=== PATIENT | female | born 1930 | race Caucasian/White ===

== ENCOUNTER 2017-02-17 15:35 | Inpatient (IN) ==
[2017-02-17] MEDS ORDERED: ONDANSETRON 4 MG/2 ML INJECTION IVP PRN (19:04)
[2017-02-17] MEDS ORDERED: POLYETHYL GLYCOL 3350 17gm PACKET PO PRN (19:04)
[2017-02-17] MEDS ORDERED: GLUCOSE ORAL GEL 40% 37.5gm PO PRN (19:11)
[2017-02-17] MEDS ORDERED: IBUPROFEN 600 MG TABLET PO SCH ×2 (19:15→19:45)
[2017-02-17] MEDS ORDERED: HYDRALAZINE 20 MG/ML INJECTION IVP SCH (20:00)
[2017-02-17] MEDS ORDERED: SIMVASTATIN 80 MG PO SCH (22:00)
[2017-02-17] MEDS ORDERED: AMLODIPINE 10 MG PO SCH (22:00)
[2017-02-17] MEDS ORDERED: IBUPROFEN 600 MG TABLET PO PRN (22:44)
[2017-02-17] MEDS ORDERED: HYDRALAZINE 20 MG/ML INJECTION IVP PRN (22:47)
[2017-02-17] MEDS: DOCUSATE SODIUM 100 MG CAPSULE PO SCH (23:47)
[2017-02-17] MEDS: SIMVASTATIN 80 MG TABLET PO SCH (23:47)
[2017-02-17] MEDS: AMLODIPINE 10 MG TABLET PO SCH (23:47)
[2017-02-18] MEDS: ENOXAPARIN 40 MG/0.4 ML INJECTION SQ SCH (08:27)
[2017-02-18] MEDS: DIGOXIN 125 MCG TABLET PO SCH (08:28)
[2017-02-18] MEDS: LUTEIN 20 MG CAPSULE PO SCH (08:28)
[2017-02-18] MEDS: ATENOLOL 50 MG TABLET PO SCH (08:29)
[2017-02-18] MEDS: VITAMIN B COMPLEX + C TABLET PO SCH (08:29)
[2017-02-18] MEDS: METFORMIN 1,000 MG TABLET PO SCH (08:29)
[2017-02-18] MEDS: DOCUSATE SODIUM 100 MG CAPSULE PO SCH ×2 (08:30→21:14)
[2017-02-18] MEDS: CITALOPRAM 10 MG TABLET PO SCH (08:30)
[2017-02-18] MEDS: ASPIRIN 325 MG TABLET PO SCH (08:35)
[2017-02-18] MEDS: RAMIPRIL 5 MG CAPSULE PO SCH (08:35)
[2017-02-18] MEDS ORDERED: AMLODIPINE 10 MG TABLET PO SCH (09:00)
--- NOTE | 2017-02-18 09:15 | Consult Note ---
<Brittany Martinez - Last Filed: 02/18/17 09:30> Consult Information - Data of Consult Patient: new to practice Requesting Physician: Maximo Johnston MD Primary Care Provider: Victor Hugo Flores MD Family Provider: Victor Hugo Flores MD - Consult Narrative Reason for consult: Medical Management while in IRU History of present illness: This is an 87 y/o female who is from [facility]. On the morning of 02/11/17 her had noted that she was having marked left sided weakness and called EMS. She was taken emergently to [facility] from [place] for CVA. Was not a Tpa candidate due to being outside the window for administration. Does take Warfarin but INR that morning was 1.3. Was found to have a clot in the right ICA that extended to the R MCA. Underwent clot retrieval but did not have improvement of her symptoms post retrieval. Unable to have MRI due to pacemaker Continues to have left sided neglect, hemiparesis, mild dysarthria, and facial droop. Was discharged from [facility] 02/17/17 to IR[place] [facility] [place] She does have a primary care provider in [place], Dr Flores. Is to follow up with him 2 weeks after d/c from rehab. Has a history of atrial fibrillation and has been on Coumadin in the past for this. Type 2 diabetes which she has been diet controlled only. History of hypertension and is continued her home medications for management. She did have a speech consult done prior to dismissal from [facility] and is to be on thickened liquids. She lives in her own home with her and hopes to regain enough function to return. Review of Systems - Constitutional Constitutional: Present: weakness. Absent: chills, fever(s), lethargy, malaise - EENMT Eyes: Absent: blurry vision Ears: Absent: ear pain Mouth/Throat: Present: changes in swallowing. Absent: sore throat, scratchy throat, drooling - Cardiovascular Cardiovascular: Absent: chest pain, palpitations, edema, heart murmur Rhythm: Present: regular rhythm - Respiratory Respiratory: Absent: cough, dyspnea, wheezing - Gastrointestinal Gastrointestinal: Absent: abdominal pain, constipation, diarrhea, nausea, vomiting - Musculoskeletal Musculoskeletal: Present: abnormal gait (2 person assist with activity), muscle weakness (left sided weakness). Absent: deformity, neck pain, stiffness - Integumentary/Breasts Integumentary: Absent: erythema, lesions, rash - Neurological Neurological: Present: abnormal gait, focal weakness (left sided). Absent: abnormal speech, confusion, dizziness, numbness, weakness [facility] Patient Stated Medical History Cerebrovascular Accident Yes: 02/11/2017 Cataracts Yes Glaucoma Yes Hearing Loss Yes Macular Degeneration Yes Cardiac Arrhythmia Yes: Hx of atrial fib Hypertension Yes Diabetes Mellitus Type 2 Yes: Diet controlled Other Yes: incontinence Other Yes: vein stripping Depression Yes hyperlipidemia Surgical History: Pacemaker insertion. cholecystectomy. cataracts. Bilateral knee replacements. tonsillectomy. hernia repair. varicose vein stripping Family History: Non contributory Smoking status: Never smoker Substance use type: does not use Alcohol intake frequency: does not drink Current residence: Apartment/Private Home Medications Home Medications Medication Instructions Recorded Confirmed Type Atenolol 50 mg PO DAILY #0 03/03/13 02/17/17 History Digoxin 125 mcg PO DAILY #0 03/03/13 02/17/17 History Acetaminophen 325 - 650 mg PO Q4HR PRN 02/17/17 02/17/17 History Amlodipine 10 mg PO HS 02/17/17 02/17/17 History Aspirin 325 mg PO DAILY 02/17/17 02/17/17 History Citalopram [Celexa] 10 mg PO DAILY 02/17/17 02/17/17 History Docusate Sodium [Colace] 1 cap PO BID 02/17/17 02/17/17 History Enoxaparin [Lovenox] 40 mg SQ DAILY 02/17/17 02/17/17 History Hydralazine Inj [Apresoline] 0.5 ml IVP Q4HR PRN 02/17/17 02/17/17 History Ibuprofen [Motrin] 600 mg PO Q6H PRN 02/17/17 02/17/17 History Lutein 20 mg PO DAILY 02/17/17 02/17/17 History Melatonin 5 mg PO HS PRN 02/17/17 02/17/17 History [place]-3/Dha/Epa/Fish Oil [[place]-3 1,000 mg PO DAILY 02/17/17 02/17/17 History Fish Oil 1,000 mg Sfgl] Ondansetron Inj [Zofran] 4 mg IVP Q6HR PRN 02/17/17 02/17/17 History Polyethylene Glycol 3350 [Miralax] 17 gm PO DAILY PRN 02/17/17 02/17/17 History Ramipril 10 mg PO DAILY 02/17/17 02/17/17 History Simvastatin 80 mg PO HS 02/17/17 02/17/17 History Vitamin B Complex Vit C No.4 150 mg PO DAILY 02/17/17 02/17/17 History [Super B Complex] Allergies Allergy/AdvReac Type Severity Reaction Status Date / Time lomefloxacin Allergy Mild RASH Verified 02/17/17 17:19 morphine Allergy Mild RASH Verified 02/17/17 17:19 Penicillins Allergy Mild RASH Verified 02/17/17 17:19 pentazocine Allergy Mild RASH Verified 02/17/17 17:19 propacetamol Allergy Mild RASH Verified 02/17/17 17:28 Tetanus Vaccines and Toxoid Allergy Unknown Verified 02/17/17 17:19 metformin AdvReac Mild DIARRHEA Verified 02/17/17 17:19 Exam Vital Signs: Temp Pulse Resp BP Pulse Ox 98.5 F 70 16 136/70 93 02/18/17 08:26 02/18/17 08:28 02/18/17 08:26 02/18/17 08:26 02/18/17 08:26 Height: 1.68 m Weight: 73 kg Body Mass Index: 25.9 - Constitutional Present: no acute distress, well nourished, well developed, somnolent - Routine HEENT Exam Head: Present: normocephalic Eye: Present: EOMI, PERRL ENT: Present: mucous membranes moist, oropharynx clear, external ear normal - Routine Neck Exam Present: supple, full ROM, trachea midline. Absent: lymphadenopathy, tenderness - Detailed Respiratory Exam Present: clear to auscultation - Routine Cardiovascular Exam Present: RRR, S1, S2 - Routine Abdominal Exam Present: soft, normoactive bowel sounds, non distended. Absent: tenderness - Routine Extremities Exam Present: no edema, pulses intact, normal capillary refill. Absent: full ROM ( left sided weakness) - Routine Skin Exam Present: intact, dry. Absent: lesions, rash - Routine Neurological Exam Present: alert, oriented X3, motor deficit (left sided weakness ), hemineglect, normal speech. Absent: altered mental status - Routine Psychiatric Exam Present: normal affect (However does appear a little flat during examination. Does speak when asked a question but otherwise does not interact) Results - Labs CBC & Chem 7: 02/18/17 04:43 02/18/17 04:43 Labs: Short CBC 02/18/17 Range/Units 04:43 WBC 12.3 H (4.5-11.0) T/MM3 Hgb 13.1 (12-16) GM/DL Hct 40.6 (36-46) % Plt Count 257 (130-400) T/MM3 BMP 02/18/17 04:43 Sodium 144 Potassium 3.8 Chloride 104 Carbon Dioxide 29 BUN 22.0 H Creatinine 0.7 Glucose 138 H Calcium 9.0 Assessment and Plan (1) Stroke Current visit: Yes Status: Acute (2) Diabetes mellitus Current visit: Yes Status: Chronic (3) Atrial fibrillation Current visit: Yes Status: Chronic (4) Hypertension Current visit: Yes Status: Chronic DVT Prophylaxis: Lovenox Resuscitation Status: Full Code Assessment and Plan: 02/18/17: CVA: PT/OT/ST as per recommendations to help regain independence. She is on Lovenox 40mg SQ daily for DVT prophylaxis as well as Simvastatin 80mg daily, 324mg ASA daily. HTN: Continue home medications of Norvasc, Atenolol, and Ramipril. Monitor b/p to maintain below 160. B/P since admission have been in good range. Creatinine 0.7 on labs from 02/17/17. DM:She was diet controlled at home. Is on thickened liquids here as well as pureed diet. Will add carb control to this to help with blood sugars. Does have sliding scale insulin ordered as well. Try to keep BGM below 160. Will check BGM fasting and 2H PC. She does have Metformin ordered and has a listed allergy but reaction is diarrhea so will monitor for this. Atrial fibrillation: Continue with digoxin at home dose. Will continue Miralax and Colace for bowel motivation. Monitor labs every few days and as needed. Hospital Course Summary Disclaimer: The visit summary below is not to be considered part of the above Progress Note. Sepsis Assessment - Evaluation Sepsis screening result: No Definite Risk - Focused Exam Vital Signs Temp Pulse Resp BP Pulse Ox 02/18/17 08:28 70 02/18/17 08:26 98.5 F 70 16 136/70 93 02/17/17 23:00 98.9 F 70 24 140/78 H 93 Capillary refill: < 2-3 Seconds <Heather Harmon Sunshine - Last Filed: 02/18/17 17:30> Consult Information - Data of Consult Requesting Physician: Maximo Johnston MD Primary Care Provider: Victor Hugo Flores MD Family Provider: Victor Hugo Flores MD [facility] Patient Stated Medical History Cerebrovascular Accident Yes: 02/11/2017 Cataracts Yes Glaucoma Yes Hearing Loss Yes Macular Degeneration Yes Cardiac Arrhythmia Yes: Hx of atrial fib Hypertension Yes Diabetes Mellitus Type 2 Yes: Diet controlled Hx Incontinence Yes Other Yes: incontinence Other Yes: vein stripping Depression Yes Exam Vital Signs: Temp Pulse Resp BP Pulse Ox 98.4 F 68 16 145/77 H 97 02/18/17 15:54 02/18/17 15:54 02/18/17 15:54 02/18/17 15:54 02/18/17 15:54 Height: 1.68 m Weight: 72.575 kg Results - Labs CBC & Chem 7: 02/18/17 04:43 02/18/17 04:43 Labs: Short CBC 02/18/17 Range/Units 04:43 WBC 12.3 H (4.5-11.0) T/MM3 Hgb 13.1 (12-16) GM/DL Hct 40.6 (36-46) % Plt Count 257 (130-400) T/MM3 BMP 02/18/17 04:43 Sodium 144 Potassium 3.8 Chloride 104 Carbon Dioxide 29 BUN 22.0 H Creatinine 0.7 Glucose 138 H Calcium 9.0 Assessment and Plan (1) Stroke Current visit: Yes Status: Acute ischemic, s/p clot retrieval; small hemorrhagic conversion right MCA distribution 02/18/17 17:02 02/18/17 17:29 (2) Left hemiparesis Current visit: Yes Status: Acute due to CVA, +left sided neglect 02/18/17 17:01 (3) Dysphagia as late effect of stroke Current visit: Yes Status: Acute (4) Diabetes mellitus Current visit: Yes Status: Chronic (5) Atrial fibrillation Current visit: Yes Status: Chronic (6) Hypertension Current visit: Yes Status: Chronic (7) Myopathy Current visit: Yes Status: Acute (8) Depression Current visit: Yes Status: Chronic (9) Head ache Current visit: Yes Status: Acute Assessment and Plan: I have independently evaluated and examined this patient. I reviewed the chart, the patient's history, and the ROOFING LAYER's documented findings as above. We discussed and formulated the assessment and plan as above with additions as below: Mrs. Black transferred from [facility] after ischemic right MCA stroke one week ago. She underwent clot retrieval at [facility] with minimal improvement. Her reports that follow-up CT demonstrated some hemorrhagic transformation within the stroke bed and that they've been advised to hold warfarin until late February. The patient offered minimal history but indicated she's had mild right frontal headache since the clot retrieval. reports that she's had minor movement in her left foot but no use of her left arm over the past week. Her locomotive crane engineer is Dr. Herrera at [facility]. Of note patient's mother had history CVA. Examination is notable for intact extraocular movements, conjugate gaze, left nasolabial fold flattening/droop. Right retail warehouse supervisor is strong and she is able to raise her right arm to at least the shoulder level and hold it up against gentle resistance. There is no left retail warehouse supervisor in the left upper extremity is flaccid. Power in the right lower extremity is grossly normal distally and she can hold the right leg up against gentle resistance proximally. There is no proximal movement of the left leg, no left plantar flexion against gentle resistance, but she can wiggle the left toes slightly. Patient reports recognition of light touch on the right and the left are symmetric in the upper and lower extremities. Cardiac rhythm is regular. [facility] records reviewed-left visual cut was reported at [facility] on admission (02/11). 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 Small parenchymal hemorrhages were reported in the right basal basilar region up to 1 cm on 02/12, cerebral edema described but did not require treatment with hypertonic saline. Echo with bubble study revealed ejection fraction 60% and no evidence of LA/LV clot. Bubble study negative for shunt. Moderate TR with PAP 45. She required tube feedings via [place] through 02/16 when she was converted to an oral diet with thickened liquids. Discussed with (who provides much of history)/nursing. Continue aggressive rehabilitation. Resume warfarin in 4 weeks (03/11/17) as directed due to history underlying A. fib. If ongoing headache will require repeat imaging with noncontrast CT to evaluate hemorrhagic transformation/edema. Hospital Course Summary Disclaimer: The visit summary below is not to be considered part of the above Progress Note. Sepsis Assessment - Focused Exam Vital Signs Temp Pulse Resp BP Pulse Ox 02/18/17 15:54 98.4 F 68 16 145/77 H 97 02/18/17 08:28 70 02/18/17 08:26 98.5 F 70 16 136/70 93
[2017-02-18] MEDS ORDERED: FALL RISK - PHARMACY CONSULT MC PRN (09:46)
[2017-02-18] MEDS: INSULIN ASPART 100unit/ml INJECTION SQ PRN ×2 (12:16→21:18)
--- NOTE | 2017-02-18 15:54 | IRU History & Physical Report ---
HPI IRU Date: Chief complaint: cva HPI: 87 yo female with CVA onset 02/11/17. Dx with right sided cva which extended from ICA to MCA. She ws trannsferred to [facility] and had clot removal procedure without improvemeent in symptoms. She continues with weakness left side and difficulty swallowing. She was taking coumadin for Afib, but inr was subtherapeutic on morning of CVA. Being admitted to IRU for PT, OT and Speech therapy. Review of Systems - Constitutional Constitutional: Present: weakness. Absent: chills, fever(s), lethargy, malaise - EENMT Eyes: Absent: blurry vision Ears: Absent: ear pain Mouth/Throat: Present: changes in swallowing. Absent: sore throat, scratchy throat, drooling - Cardiovascular Cardiovascular: Absent: chest pain, palpitations, edema, heart murmur Rhythm: Present: regular rhythm - Respiratory Respiratory: Absent: cough, dyspnea, wheezing - Gastrointestinal Gastrointestinal: Absent: abdominal pain, constipation, diarrhea, nausea, vomiting - Musculoskeletal Musculoskeletal: Present: abnormal gait (2 person assist with activity), muscle weakness (left sided weakness). Absent: deformity, neck pain, stiffness - Integumentary/Breasts Integumentary: Absent: erythema, lesions, rash - Neurological Neurological: Present: abnormal gait, focal weakness (left sided). Absent: abnormal speech, confusion, dizziness, numbness, weakness [facility] Patient Stated Medical History Cerebrovascular Accident Yes: 02/11/2017 Cataracts Yes Glaucoma Yes Hearing Loss Yes Macular Degeneration Yes Cardiac Arrhythmia Yes: Hx of atrial fib Hypertension Yes Diabetes Mellitus Type 2 Yes: Diet controlled Other Yes: incontinence Other Yes: vein stripping Depression Yes Surgical History: Pacemaker insertion. cholecystectomy. cataracts. Bilateral knee replacements. tonsillectomy. hernia repair. varicose vein stripping Smoking status: Never smoker Substance use type: does not use Alcohol intake frequency: does not drink Current residence: Apartment/Private Home Medications Home Medications Medication Instructions Recorded Confirmed Type Atenolol 50 mg PO DAILY #0 03/03/13 02/17/17 History Digoxin 125 mcg PO DAILY #0 03/03/13 02/17/17 History Acetaminophen 325 - 650 mg PO Q4HR PRN 02/17/17 02/17/17 History Amlodipine 10 mg PO HS 02/17/17 02/17/17 History Aspirin 325 mg PO DAILY 02/17/17 02/17/17 History Citalopram [Celexa] 10 mg PO DAILY 02/17/17 02/17/17 History Docusate Sodium [Colace] 1 cap PO BID 02/17/17 02/17/17 History Enoxaparin [Lovenox] 40 mg SQ DAILY 02/17/17 02/17/17 History Hydralazine Inj [Apresoline] 0.5 ml IVP Q4HR PRN 02/17/17 02/17/17 History Ibuprofen [Motrin] 600 mg PO Q6H PRN 02/17/17 02/17/17 History Lutein 20 mg PO DAILY 02/17/17 02/17/17 History Melatonin 5 mg PO HS PRN 02/17/17 02/17/17 History [place]-3/Dha/Epa/Fish Oil [[place]-3 1,000 mg PO DAILY 02/17/17 02/17/17 History Fish Oil 1,000 mg Sfgl] Ondansetron Inj [Zofran] 4 mg IVP Q6HR PRN 02/17/17 02/17/17 History Polyethylene Glycol 3350 [Miralax] 17 gm PO DAILY PRN 02/17/17 02/17/17 History Ramipril 10 mg PO DAILY 02/17/17 02/17/17 History Simvastatin 80 mg PO HS 02/17/17 02/17/17 History Vitamin B Complex Vit C No.4 150 mg PO DAILY 02/17/17 02/17/17 History [Super B Complex] Allergies Allergy/AdvReac Type Severity Reaction Status Date / Time lomefloxacin Allergy Mild RASH Verified 02/17/17 17:19 morphine Allergy Mild RASH Verified 02/17/17 17:19 Penicillins Allergy Mild RASH Verified 02/17/17 17:19 pentazocine Allergy Mild RASH Verified 02/17/17 17:19 propacetamol Allergy Mild RASH Verified 02/17/17 17:28 Tetanus Vaccines and Toxoid Allergy Unknown Verified 02/17/17 17:19 metformin AdvReac Mild DIARRHEA Verified 02/17/17 17:19 Results IRU - Labs Labs: Laboratory Results - last 24 hr 02/17/17 02/18/17 02/18/17 22:07 04:43 04:43 WBC 12.3 H RBC 4.36 Hgb 13.1 Hct 40.6 MCV 93.1 MCH 30.0 MCHC 32.3 RDW Std Deviation 49.1 Plt Count 257 MPV 11.1 Immature Gran % (Auto) 0.2 Neut % (Auto) 78.6 H Lymph % (Auto) 12.2 L Burnett % (Auto) 7.2 Eos % (Auto) 1.5 Baso % (Auto) 0.3 Neut # 9.7 H Lymph # 1.5 Burnett # 0.9 H Eos # 0.2 Baso # 0.0 Abs Immat Gran (auto) 0.03 Turbidity 20 Sodium 144 Potassium 3.8 Chloride 104 Carbon Dioxide 29 Anion Gap 11 BUN 22.0 H Creatinine 0.7 GFR Calculation 80 BUN/Creatinine Ratio 31 H Glucose 138 H Glucometer 122 Calculated Osmolality 282 H Calcium 9.0 Icterus Index 2 Specimen Hemolysis 15 02/18/17 02/18/17 05:54 11:48 WBC RBC Hgb Hct MCV MCH MCHC RDW Std Deviation Plt Count MPV Immature Gran % (Auto) Neut % (Auto) Lymph % (Auto) Burnett % (Auto) Eos % (Auto) Baso % (Auto) Neut # Lymph # Burnett # Eos # Baso # Abs Immat Gran (auto) Turbidity Sodium Potassium Chloride Carbon Dioxide Anion Gap BUN Creatinine GFR Calculation BUN/Creatinine Ratio Glucose Glucometer 145 150 Calculated Osmolality Calcium Icterus Index Specimen Hemolysis Exam Vital Signs: Temp Pulse Resp BP Pulse Ox 98.5 F 70 16 136/70 93 02/18/17 08:26 02/18/17 08:28 02/18/17 08:26 02/18/17 08:26 02/18/17 08:26 Height: 1.68 m Weight: 72.575 kg Body Mass Index: 25.8 - Constitutional Present: no acute distress, well nourished, well developed, somnolent - Routine HEENT Exam Head: Present: normocephalic Eye: Present: EOMI, PERRL - Routine Neck Exam Present: full ROM. Absent: tenderness - Routine Respiratory Exam Present: CTA bilaterally. Absent: wheezes, crackles - Routine Cardiovascular Exam Present: no murmur, irregularly irregular - Routine Abdominal Exam Present: soft, non distended, non tender. Absent: organomegaly, mass - Routine Extremities Exam Absent: cyanosis, clubbing, edema - Routine Skin Exam Present: intact, dry, warm - Routine Neurological Exam Present: alert, oriented X3, motor deficit Sepsis Assessment - Evaluation Sepsis screening result: No Definite Risk - Focused Exam Vital Signs Temp Pulse Resp BP Pulse Ox 02/18/17 08:28 70 02/18/17 08:26 98.5 F 70 16 136/70 93 Cardiovascular exam: Present: RRR, S1, S2 Capillary refill: < 2-3 Seconds IRU A/P (1) Stroke Current visit: Yes Status: Acute Left sided weakness. PT and OT consulted. Speech for dysphagia. Pt will work with them for min of 3 ohurs daily per IRU protocol. Being evaluated today. (2) Diabetes mellitus Current visit: Yes Status: Chronic Medical to manage. (3) Atrial fibrillation Current visit: Yes Status: Chronic Mediccal to manage. (4) Hypertension Current visit: Yes Status: Chronic Meddical to manage. (5) Myopathy Current visit: Yes Status: Acute PT and OT to develope care plan DVT Prophylaxis: Lovenox Resuscitation Status: Full Code - Course Hospital Course: Maximo Johnston MD: - Interventions to Obtain Goals PT Treatment Plan: Balance/Proprioception, Functional Activities, Gait Training , Manual Therapy, Patient/Family Education, Sensory Integration, Therapeutic Exercise OT Treatment Plan: ADL (Basic Care), Balance Training, IADL, Pt./Family Education, Ther. Exercise for ADL, UE Functional Training
--- NOTE | 2017-02-18 16:03 | IRU 24Hr Post Admit Eval ---
24 Hr Post Admission Physical - Relevant Changes Reviewed: I have reviewed the patient's information and concur with the finding and results of the pre-admission screen. Mike review performed at time of History and Physical this am at Approx 10;30 Certification: I certify the patient for rehabilitation. CERTIFICATION PERFORMED THIS AM AT APPROX 10:30 - Patient Condition (1) Stroke Status: Acute Code(s): I63.9 - Cerebral infarction, unspecified (2) Diabetes mellitus Status: Chronic Code(s): E11.9 - Type 2 diabetes mellitus without complications (3) Atrial fibrillation Status: Chronic Code(s): I48.91 - Unspecified atrial fibrillation (4) Hypertension Status: Chronic Code(s): I10 - Essential (primary) hypertension (5) Myopathy Status: Acute Code(s): G72.9 - Myopathy, unspecified - Prior Functional Status Lives With: Spouse Residence Type: Apartment/Private Home Assitive Devices: None Prior Functional Status: Indep. at home or school - Current Functional Status Failed Alternative Therapy: Arrived from Acute Care Patient Requirements: The patient requires oversight by rehabilitation physician to manage their rehabilitation treatment plan and multidisciplinary approach to care that can only be provided in an IRF and requires a multidisciplinary approach to care, provided by professional PTs, OTs, STs, dieticians, RTs, rehabilitation nurses and is not available in lesser levels of care. Limitiations Req: Mobility Impairment, ADL Impairment Speech Therapy Minutes: 60 Physical Therapy Minutes: 60 Occupational Therapy Minutes: 60 Therapy: The patient is to receive therapy at least [address] Treatment Plan: Swallow Retraining/Exercises, Swallow Precautions, Modified Diet - Complications/Comorbidities Barriers to Discharge: Weakness, Balance, Endurance, Pain Control - Plan to Avoid Complications Plan to Avoid Complications: The patient cannot receive this care in a lesser intensive setting such as Halfway or Outpatient Therapy due to the patient requiring the following MEDICal supervision and management to prevent complictions from DM, Afib, andreperfusion injuries post cva due to size and location.
[2017-02-18] MEDS: ACETAMINOPHEN 325 MG TABLET PO PRN ×2 (16:25→21:16)
[2017-02-18] MEDS: SIMVASTATIN 80 MG TABLET PO SCH (21:15)
[2017-02-18] MEDS: AMLODIPINE 10 MG TABLET PO SCH (21:15)
[2017-02-18] MEDS ORDERED: SIMVASTATIN 80 MG TABLET PO SCH (22:00)
[2017-02-19] MEDS: METFORMIN 1,000 MG TABLET PO SCH (08:20)
[2017-02-19] MEDS: VITAMIN B COMPLEX + C TABLET PO SCH (08:20)
[2017-02-19] MEDS: ASPIRIN 325 MG TABLET PO SCH (08:20)
[2017-02-19] MEDS: LUTEIN 20 MG CAPSULE PO SCH (08:20)
[2017-02-19] MEDS: RAMIPRIL 5 MG CAPSULE PO SCH (08:21)
[2017-02-19] MEDS: ACETAMINOPHEN 325 MG TABLET PO PRN (08:22)
[2017-02-19] MEDS: DOCUSATE SODIUM 100 MG CAPSULE PO SCH ×2 (08:22→22:35)
[2017-02-19] MEDS: ATENOLOL 50 MG TABLET PO SCH (08:22)
[2017-02-19] MEDS: DIGOXIN 125 MCG TABLET PO SCH (08:23)
[2017-02-19] MEDS: CITALOPRAM 10 MG TABLET PO SCH (08:23)
[2017-02-19] MEDS: ENOXAPARIN 40 MG/0.4 ML INJECTION SQ SCH (08:24)
[2017-02-19] MEDS: INSULIN ASPART 100unit/ml INJECTION SQ PRN (14:46)
[2017-02-19] MEDS ORDERED: FERRIC CARBOXYMALTOSE 750 MG in NS 250ml 250 ML IV ONE (15:30)
[2017-02-19] MEDS: AMLODIPINE 10 MG TABLET PO SCH (22:35)
[2017-02-19] MEDS: SIMVASTATIN 80 MG TABLET PO SCH (22:35)
[2017-02-20] MEDS ORDERED: FALL RISK - PHARMACY CONSULT XX PRN (09:28)
[2017-02-20] MEDS: ENOXAPARIN 40 MG/0.4 ML INJECTION SQ SCH (09:29)
[2017-02-20] MEDS: DIGOXIN 125 MCG TABLET PO SCH (09:29)
[2017-02-20] MEDS: RAMIPRIL 5 MG CAPSULE PO SCH (09:30)
[2017-02-20] MEDS: LUTEIN 20 MG CAPSULE PO SCH (09:30)
[2017-02-20] MEDS: VITAMIN B COMPLEX + C TABLET PO SCH (09:30)
[2017-02-20] MEDS: METFORMIN 1,000 MG TABLET PO SCH (09:30)
[2017-02-20] MEDS: ATENOLOL 50 MG TABLET PO SCH (09:30)
[2017-02-20] MEDS: DOCUSATE SODIUM 100 MG CAPSULE PO SCH ×2 (09:31→21:19)
[2017-02-20] MEDS: CITALOPRAM 10 MG TABLET PO SCH (09:31)
[2017-02-20] MEDS: ASPIRIN 325 MG TABLET PO SCH (09:32)
[2017-02-20] MEDS: INSULIN ASPART 100unit/ml INJECTION SQ PRN ×2 (12:47→21:21)
--- NOTE | 2017-02-20 12:52 | Progress Note ---
Subjective: Taisha was in her room after breakfast. She denies any acute concerns. She complains of a dry mouth. She was not able to move her left lower or upper extremity. She communicates well and is A&Ox3. She has been eating well. Objective Vital signs: Temp Pulse Resp BP Pulse Ox 98.4 F 70 16 126/56 95 02/20/17 08:31 02/20/17 09:29 02/20/17 08:31 02/20/17 08:31 02/20/17 08:31 Weight: 71 kg - Constitutional Present: no acute distress, well nourished, well developed - Routine HEENT Exam Eye: Absent: conjunctival icterus ENT: Present: mucous membranes dry - Routine Respiratory Exam Present: CTA bilaterally - Routine Cardiovascular Exam Present: S1, S2 - Routine Abdominal Exam Present: soft, normoactive bowel sounds, non distended, non tender - Routine Extremities Exam Present: no edema, pulses intact. Absent: clubbing, full ROM - Routine Musculoskeletal Exam Musculoskeletal: no clubbing or cyanosis - Routine Skin Exam Present: intact, dry, warm - Routine Neurological Exam Present: alert, oriented X3, motor deficit (LUE, LLE; left arm in sling). Absent: CN II-XII intact (left facial droop and right tongue deviation) - Routine Psychiatric Exam Present: normal affect, normal thought process Results - Labs CBC & Chem 7: 02/18/17 04:43 02/18/17 04:43 Assessment and Plan (1) Stroke Current visit: Yes Status: Acute ischemic, s/p clot retrieval; small hemorrhagic conversion right MCA distribution 02/18/17 17:02 02/18/17 17:29 (2) Diabetes mellitus Current visit: Yes Status: Chronic (3) Atrial fibrillation Current visit: Yes Status: Chronic (4) Hypertension Current visit: Yes Status: Chronic (5) Myopathy Current visit: Yes Status: Acute (6) Left hemiparesis Current visit: Yes Status: Acute due to CVA, +left sided neglect 02/18/17 17:01 (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 Current visit: Yes Status: Acute (8) Depression Current visit: Yes Status: Chronic (9) Head ache Current visit: Yes Status: Acute Assessment and Plan: 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 Absent: wheezes, crackles Cardiovascular exam: Present: RRR, S1, S2 Capillary refill: < 2-3 Seconds Hospital Course Summary Disclaimer: The visit summary below is not to be considered part of the above Progress Note. Hospital Course: 02/18/17 Mrs. Black transferred from [facility] after ischemic right MCA stroke one week ago. She underwent clot retrieval at [facility] [facility] with minimal improvement. Her reports that follow-up CT demonstrated some hemorrhagic transformation within the stroke bed and that they've been advised to hold warfarin until late February. The patient offered minimal history but indicated she's had mild right frontal headache since the clot retrieval. reports that she's had minor movement in her left foot but no use of her left arm over the past week. Her scorer single is Dr. Herrera at [facility]. Of note patient's mother had history CVA. Examination is notable for intact extraocular movements, conjugate gaze, left nasolabial fold flattening/droop. Right measurement technician is strong and she is able to raise her right arm to at least the shoulder level and hold it up against gentle resistance. There is no left measurement technician in the left upper extremity is flaccid. Power in the right lower extremity is grossly normal distally and she can hold the right leg up against gentle resistance proximally. There is no proximal movement of the left leg, no left plantar flexion against gentle resistance, but she can wiggle the left toes slightly. Patient reports recognition of light touch on the right and the left are symmetric in the upper and lower extremities. Cardiac rhythm is regular. [facility] records reviewed-left visual cut was reported at [facility] on admission (02/11). 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 Small parenchymal hemorrhages were reported in the right basal basilar region up to 1 cm on 02/12, cerebral edema described but did not require treatment with hypertonic saline. Echo with bubble study revealed ejection fraction 60% and no evidence of LA/LV clot. Bubble study negative for shunt. Moderate TR with PAP 45. She required tube feedings via [place] through 02/16 when she was converted to an oral diet with thickened liquids. Discussed with (who provides much of history)/nursing. Continue aggressive rehabilitation. Resume warfarin in 4 weeks (03/11/17) as directed due to history underlying A. fib. If ongoing headache will require repeat imaging with noncontrast CT to evaluate hemorrhagic transformation/edema. 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
[2017-02-20] MEDS: SIMVASTATIN 80 MG TABLET PO SCH (21:19)
[2017-02-20] MEDS: ACETAMINOPHEN 325 MG TABLET PO PRN (21:19)
[2017-02-20] MEDS: AMLODIPINE 10 MG TABLET PO SCH (21:19)
[2017-02-21] MEDS: INSULIN ASPART 100unit/ml INJECTION SQ PRN ×4 (06:10→20:42)
[2017-02-21] MEDS: METFORMIN 1,000 MG TABLET PO SCH (09:28)
[2017-02-21] MEDS: RAMIPRIL 5 MG CAPSULE PO SCH (09:29)
[2017-02-21] MEDS: ASPIRIN 325 MG TABLET PO SCH (09:29)
[2017-02-21] MEDS: CITALOPRAM 10 MG TABLET PO SCH (09:30)
[2017-02-21] MEDS: DOCUSATE SODIUM 100 MG CAPSULE PO SCH ×2 (09:30→20:43)
[2017-02-21] MEDS: ENOXAPARIN 40 MG/0.4 ML INJECTION SQ SCH (09:31)
[2017-02-21] MEDS: DIGOXIN 125 MCG TABLET PO SCH (09:31)
[2017-02-21] MEDS: VITAMIN B COMPLEX + C TABLET PO SCH (09:32)
[2017-02-21] MEDS: LUTEIN 20 MG CAPSULE PO SCH (09:32)
[2017-02-21] MEDS: ATENOLOL 50 MG TABLET PO SCH (09:32)
[2017-02-21] MEDS: AMLODIPINE 10 MG TABLET PO SCH ×2 (20:43→22:11)
[2017-02-21] MEDS: SIMVASTATIN 80 MG TABLET PO SCH ×2 (20:43→22:11)
--- NOTE | 2017-02-21 22:12 | Progress Note ---
Subjective: Mrs. Black proceed with family in the dining area earlier this evening. The patient was nonverbal but not it occasionally. Her reports oral intake was improved today. Nursing reported no concerns and indicated patient is having bowel movements without difficulty and that she's been afebrile. Patient has been incontinent. Nocturnal disorientation reported occasionally. Objective Vital signs: Temp Pulse Resp BP Pulse Ox 98.0 F 70 24 130/59 96 02/21/17 16:00 02/21/17 16:00 02/21/17 16:00 02/21/17 16:00 02/21/17 16:00 EXAM General-nonverbal, regards examiner HEENT-left facial droop, conjunctiva clear Lungs-respirations nonlabored, breath sounds clear Cardiac-rhythm generally regular although occasional ectopic beats noted, S1-S2 Abd-soft, nontender Ext-without edema Neuro-left upper extremity flaccid, wiggles left toes in doing so there is some muscle activity present in the left lower leg; no palpable muscle activity in the left hamstrings when patient asked to raise the left leg although effort unclear as she usually tries to raise the right. Psych-flat affect - Weight: 71 kg Results - Labs CBC & Chem 7: 02/18/17 04:43 02/18/17 04:43 Labs: Accu-Cheks today: [phone] Assessment and Plan (1) Stroke Current visit: Yes Status: Acute ischemic, s/p clot retrieval; small hemorrhagic conversion right MCA distribution (2) Left hemiparesis Current visit: Yes Status: Acute due to CVA, +left sided neglect (3) Dysphagia as late effect of stroke Current visit: Yes Status: Acute (4) Diabetes mellitus Current visit: Yes Status: Chronic (5) Atrial fibrillation Current visit: Yes Status: Chronic (6) Hypertension Current visit: Yes Status: Chronic (7) Myopathy Current visit: Yes Status: Acute (8) Depression Current visit: Yes Status: Chronic (9) Head ache Current visit: Yes Status: Acute Assessment and Plan: 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 Absent: wheezes, crackles Cardiovascular exam: Present: RRR, S1, S2 Capillary refill: < 2-3 Seconds Hospital Course Summary Disclaimer: The visit summary below is not to be considered part of the above Progress Note. Hospital Course: 02/18/17 Mrs. Black transferred from [facility] after ischemic right MCA stroke one week ago. She underwent clot retrieval at [place] with minimal improvement. Her reports that follow-up CT demonstrated some hemorrhagic transformation within the stroke bed and that they've been advised to hold warfarin until late February. The patient offered minimal history but indicated she's had mild right frontal headache since the clot retrieval. reports that she's had minor movement in her left foot but no use of her left arm over the past week. Her track rider is Dr. Herrera at [facility]. Of note patient's mother had history CVA. Examination is notable for intact extraocular movements, conjugate gaze, left nasolabial fold flattening/droop. Right industrial retrofit designer is strong and she is able to raise her right arm to at least the shoulder level and hold it up against gentle resistance. There is no left industrial retrofit designer in the left upper extremity is flaccid. Power in the right lower extremity is grossly normal distally and she can hold the right leg up against gentle resistance proximally. There is no proximal movement of the left leg, no left plantar flexion against gentle resistance, but she can wiggle the left toes slightly. Patient reports recognition of light touch on the right and the left are symmetric in the upper and lower extremities. Cardiac rhythm is regular. [place] records reviewed-left visual cut was reported at [facility] on admission (02/11). 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 Small parenchymal hemorrhages were reported in the right basal basilar region up to 1 cm on 02/12, cerebral edema described but did not require treatment with hypertonic saline. Echo with bubble study revealed ejection fraction 60% and no evidence of LA/LV clot. Bubble study negative for shunt. Moderate TR with PAP 45. She required tube feedings via [place] through 02/16 when she was converted to an oral diet with thickened liquids. Discussed with (who provides much of history)/nursing. Continue aggressive rehabilitation. Resume warfarin in 4 weeks (03/11/17) as directed due to history underlying A. fib. If ongoing headache will require repeat imaging with noncontrast CT to evaluate hemorrhagic transformation/edema. 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
[2017-02-22] MEDS: ENOXAPARIN 40 MG/0.4 ML INJECTION SQ SCH (08:43)
[2017-02-22] MEDS: ASPIRIN 325 MG TABLET PO SCH (09:19)
[2017-02-22] MEDS: METFORMIN 1,000 MG TABLET PO SCH (09:20)
[2017-02-22] MEDS: LUTEIN 20 MG CAPSULE PO SCH (09:21)
[2017-02-22] MEDS: DOCUSATE SODIUM 100 MG CAPSULE PO SCH ×2 (09:22→21:23)
[2017-02-22] MEDS: RAMIPRIL 5 MG CAPSULE PO SCH (09:22)
[2017-02-22] MEDS: CITALOPRAM 20 MG TABLET PO SCH (09:24)
[2017-02-22] MEDS: DIGOXIN 125 MCG TABLET PO SCH (09:24)
[2017-02-22] MEDS: ATENOLOL 50 MG TABLET PO SCH (09:25)
[2017-02-22] MEDS: VITAMIN B COMPLEX + C TABLET PO SCH (09:26)
[2017-02-22] MEDS: INSULIN ASPART 100unit/ml INJECTION SQ PRN ×2 (11:02→21:23)
--- NOTE | 2017-02-22 11:44 | Progress Note ---
Subjective: Taisha was sleeping comfortably and did not easily awaken with verbal stimulation. Per nursing staff, she is alert and oriented to self, and seems to understands simple instructions but then cannot remember what to do - ie she couldn't recall how to use the amalia light. She is requiring total care for ADLs and left arm continues to be flaccid. She's able to assist with rolling in the bed. She's on a pureed diet and eating 25-50% of meals. Objective Vital signs: Temp Pulse Resp BP Pulse Ox 98.2 F 70 12 150/78 H 96 02/22/17 08:00 02/22/17 09:24 02/22/17 08:00 02/22/17 08:00 02/22/17 08:00 Weight: 71 kg - Constitutional Present: no acute distress, well nourished, well developed - Routine Respiratory Exam Present: CTA bilaterally - Routine Cardiovascular Exam Present: S1, S2 - Routine Abdominal Exam Present: soft, normoactive bowel sounds - Routine Extremities Exam Present: no edema, pulses intact - Routine Skin Exam Present: intact, dry, warm - Routine Neurological Exam Absent: alert (sleeping) - Routine Psychiatric Exam Present: unable to assess Results - Labs CBC & Chem 7: 02/18/17 04:43 02/18/17 04:43 Assessment and Plan (1) Stroke Current visit: Yes Status: Acute ischemic, s/p clot retrieval; small hemorrhagic conversion right MCA distribution (2) Diabetes mellitus Current visit: Yes Status: Chronic (3) Atrial fibrillation Current visit: Yes Status: Chronic (4) Hypertension Current visit: Yes Status: Chronic (5) Myopathy Current visit: Yes Status: Acute (6) Left hemiparesis Current visit: Yes Status: Acute due to CVA, +left sided neglect (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 Current visit: Yes Status: Acute (8) Depression Current visit: Yes Status: Chronic (9) Head ache Current visit: Yes Status: Acute Assessment and Plan: 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 -cont PT/OT/speech therapy - still with significant hemiparesis -hold warfarin (hx A-fib) until late February (03/11) but cont Lovenox + ASA DM2 -hyperglycemia noted, especially after breakfast and supper - start NovoLOG 3 units with breakfast and supper -continue Metformin (contributing to frequent/loose stools) and SSI Leukocytosis 12.3 -noted on admit, afebrile, recheck 02/23 HTN -occasional moderate elevations but otherwise stable -continue current [facility] Sepsis Assessment - Evaluation Sepsis screening result: No Definite Risk - Focused Exam Vital Signs Temp Pulse Resp BP Pulse Ox 02/22/17 09:24 70 02/22/17 08:00 98.2 F 70 12 150/78 H 96 Respiratory exam: Present: CTA bilaterally. Absent: wheezes, crackles Cardiovascular exam: Present: RRR, S1, S2 Capillary refill: < 2-3 Seconds Hospital Course Summary Disclaimer: The visit summary below is not to be considered part of the above Progress Note. Hospital Course: 02/18/17 Mrs. Black transferred from [facility] after ischemic right MCA stroke one week ago. She underwent clot retrieval at [place] with minimal improvement. Her reports that follow-up CT demonstrated some hemorrhagic transformation within the stroke bed and that they've been advised to hold warfarin until late February. The patient offered minimal history but indicated she's had mild right frontal headache since the clot retrieval. reports that she's had minor movement in her left foot but no use of her left arm over the past week. Her director of institutional giving is Dr. Herrera at [facility]. Of note patient's mother had history CVA. Examination is notable for intact extraocular movements, conjugate gaze, left nasolabial fold flattening/droop. Right tag writer is strong and she is able to raise her right arm to at least the shoulder level and hold it up against gentle resistance. There is no left tag writer in the left upper extremity is flaccid. Power in the right lower extremity is grossly normal distally and she can hold the right leg up against gentle resistance proximally. There is no proximal movement of the left leg, no left plantar flexion against gentle resistance, but she can wiggle the left toes slightly. Patient reports recognition of light touch on the right and the left are symmetric in the upper and lower extremities. Cardiac rhythm is regular. [facility] records reviewed-left visual cut was reported at [facility] on admission (02/11). 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 Small parenchymal hemorrhages were reported in the right basal basilar region up to 1 cm on 02/12, cerebral edema described but did not require treatment with hypertonic saline. Echo with bubble study revealed ejection fraction 60% and no evidence of LA/LV clot. Bubble study negative for shunt. Moderate TR with PAP 45. She required tube feedings via [place] through 02/16 when she was converted to an oral diet with thickened liquids. Discussed with (who provides much of history)/nursing. Continue aggressive rehabilitation. Resume warfarin in 4 weeks (03/11/17) as directed due to history underlying A. fib. If ongoing headache will require repeat imaging with noncontrast CT to evaluate hemorrhagic transformation/edema. 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
[2017-02-22] MEDS: INSULIN ASPART 100unit/ml INJECTION SQ SCH (17:51)
[2017-02-22] MEDS: AMLODIPINE 10 MG TABLET PO SCH (21:23)
[2017-02-22] MEDS: SIMVASTATIN 80 MG TABLET PO SCH (21:23)
[2017-02-23] MEDS: INSULIN ASPART 100unit/ml INJECTION SQ SCH ×2 (08:41→17:27)
[2017-02-23] MEDS: LUTEIN 20 MG CAPSULE PO SCH (08:44)
[2017-02-23] MEDS: ENOXAPARIN 40 MG/0.4 ML INJECTION SQ SCH (08:44)
[2017-02-23] MEDS: CITALOPRAM 20 MG TABLET PO SCH (08:44)
[2017-02-23] MEDS: VITAMIN B COMPLEX + C TABLET PO SCH (08:44)
[2017-02-23] MEDS: ATENOLOL 50 MG TABLET PO SCH (08:44)
[2017-02-23] MEDS: ASPIRIN 325 MG TABLET PO SCH (08:45)
[2017-02-23] MEDS: RAMIPRIL 5 MG CAPSULE PO SCH (08:46)
[2017-02-23] MEDS: METFORMIN 1,000 MG TABLET PO SCH (08:47)
[2017-02-23] MEDS: DOCUSATE SODIUM 100 MG CAPSULE PO SCH ×2 (08:47→21:35)
[2017-02-23] MEDS: DIGOXIN 125 MCG TABLET PO SCH (08:48)
[2017-02-23] MEDS: INSULIN ASPART 100unit/ml INJECTION SQ PRN ×2 (10:07→21:37)
[2017-02-23 10:53] VITALS: BMI 25.2
--- NOTE | 2017-02-23 17:58 | IRU Plan of Care ---
IRU Overall Plan of Care - Patient Impairments (1) Stroke Code(s): I63.9 - Cerebral infarction, unspecified Status: Acute (2) Left hemiparesis Code(s): G81.94 - Hemiplegia, unspecified affecting left nondominant side Status: Acute (3) Dysphagia as late effect of stroke Code(s): I69.391 - Dysphagia following cerebral infarction Status: Acute (4) Diabetes mellitus Code(s): E11.9 - Type 2 diabetes mellitus without complications Status: Chronic (5) Atrial fibrillation Code(s): I48.91 - Unspecified atrial fibrillation Status: Chronic (6) Hypertension Code(s): I10 - Essential (primary) hypertension Status: Chronic (7) Myopathy Code(s): G72.9 - Myopathy, unspecified Status: Acute (8) Depression Code(s): F32.9 - Major depressive disorder, single episode, unspecified Status : Chronic (9) Head ache Code(s): R51 - Headache Status: Acute - Relevant Changes Relevant Changes: No Reviewed: I have reviewed the patient's information and concur with the finding and results of the pre-admission screen. Certification: I certify the patient for rehabilitation. - Medical Prognosis Medical Prognosis: Fair Vital Signs: Last Vital Signs Temp 98.1 F 02/23/17 16:00 Pulse 70 02/23/17 16:00 Resp 14 02/23/17 16:00 BP 121/59 02/23/17 16:00 Pulse Ox 96 02/23/17 16:00 Laboratory: Laboratory Results - last 48 hr 02/21/17 02/22/17 02/22/17 20:18 06:04 10:56 WBC RBC Hgb Hct MCV MCH MCHC RDW Std Deviation Plt Count MPV Immature Gran % (Auto) Neut % (Auto) Lymph % (Auto) [place] % (Auto) Eos % (Auto) Baso % (Auto) Neut # Lymph # [place] # Eos # Baso # Abs Immat Gran (auto) Turbidity Sodium Potassium Chloride Carbon Dioxide Anion Gap BUN Creatinine GFR Calculation BUN/Creatinine Ratio Glucose Glucometer 204 149 226 Calculated Osmolality Calcium Total Bilirubin Icterus Index AST ALT Alkaline Phosphatase Total Protein Albumin Globulin Albumin/Globulin Ratio Specimen Hemolysis 02/22/17 02/23/17 02/23/17 15:18 04:45 04:45 WBC 14.7 H RBC 4.32 Hgb 12.8 Hct 40.7 MCV 94.2 MCH 29.6 MCHC 31.4 RDW Std Deviation 49.9 Plt Count 302 MPV 11.8 Immature Gran % (Auto) 0.3 Neut % (Auto) 78.6 H Lymph % (Auto) 12.6 L [place] % (Auto) 6.9 Eos % (Auto) 1.3 Baso % (Auto) 0.3 Neut # 11.5 H Lymph # 1.9 [place] # 1.0 H Eos # 0.2 Baso # 0.0 Abs Immat Gran (auto) 0.05 H Turbidity < 20.0 Sodium 150 H Potassium 3.5 L Chloride 105 Carbon Dioxide 32 H Anion Gap 13 BUN 36.0 H Creatinine 0.9 GFR Calculation 60 BUN/Creatinine Ratio 40 H Glucose 134 H Glucometer 119 Calculated Osmolality 298 H Calcium 9.8 Total Bilirubin 0.80 Icterus Index < 2.0 AST 60 H ALT 72 H Alkaline Phosphatase 82 Total Protein 6.7 Albumin 3.8 Globulin 2.9 Albumin/Globulin Ratio 1.3 Specimen Hemolysis < 15.0 02/23/17 10:03 WBC RBC Hgb Hct MCV MCH MCHC RDW Std Deviation Plt Count MPV Immature Gran % (Auto) Neut % (Auto) Lymph % (Auto) [place] % (Auto) Eos % (Auto) Baso % (Auto) Neut # Lymph # [place] # Eos # Baso # Abs Immat Gran (auto) Turbidity Sodium Potassium Chloride Carbon Dioxide Anion Gap BUN Creatinine GFR Calculation BUN/Creatinine Ratio Glucose Glucometer 195 Calculated Osmolality Calcium Total Bilirubin Icterus Index AST ALT Alkaline Phosphatase Total Protein Albumin Globulin Albumin/Globulin Ratio Specimen Hemolysis - Anticipated Interventions Anticipated Interventions: The patient requires inpatient IRF care for PT, OT, and/or ST for residuals remaining from [] resulting in muscular weakness and strength deficits. ROM Deficit: Left Upper Extremity Strength Deficits: Left Upper Extremity, Left Lower Extremity - FIM Ambulation Distance: 16 Wheelchair Propulsion Distance: 73 Toileting Adaptive Equipment: Commode Number of Incontinent Voids: 1 - Current Functional Status Failed Alternative Therapy: Arrived from Acute Care Patient Requires: The patient requires oversight by rehabilitation physician to manage their rehabilitation treatment plan and multidisciplinary approach to care that can only be provided in an IRF and requires a multidisciplinary approach to care, provided by professional PTs, OTs, STs, dieticians, RTs, rehabilitation nurses and is not available in lesser levels of care. Speech-Language Pathology Minutes: 60 Physical Therapy Minutes: 60 Occupational Therapy Minutes: 60 Therapy: The patient is to receive therapy at least [address] Treatment Plan: Swallow Retraining/Exercises ST Treatment Plan Duration: Two Weeks ST Treatment Plan Frequency: Five Times Per Week Plan of Care Comment: Diet upgraded to pureed with soft,diced fruit and nectar thick liquids. Continue swallow and cognitive retraining - Anticipated LOS/Outcomes Anticipated Functional Outcome: improvement in adaptation to deficits. Anticipated DC Destination: Home Health Service Home Safety Plan: The patient will be provided with the development of a Home Safety Plan for return to a home or home-like environment and and to ensure safety post discharge. - Plan to Avoid Complications Barriers to Attaining Goals: Weakness, Balance, Endurance, Comprehension Plan to Avoid Complications: The patient cannot receive this care in a lesser intensive setting such as Nursing Home or Outpatient Therapy due to the patient requiring Medical supervision due to CVA and chronic illness which increase the risk of injury during initial stages of PT and OT.
--- NOTE | 2017-02-23 18:03 | IRU Progress Note ---
- Subjective/Serverity of Illness Pt has very limited use of left hand, but is working with PT and OT. Family present and supportive. Exam Vital Signs: Temp Pulse Resp BP Pulse Ox 98.1 F 70 14 121/59 96 02/23/17 16:00 02/23/17 16:00 02/23/17 16:00 02/23/17 16:00 02/23/17 16:00 Height: 1.68 m Weight: 70.76 kg Body Mass Index: 25.2 - Constitutional Present: no acute distress, well nourished, well developed Results - Labs CBC & Chem 7: 02/23/17 04:45 02/23/17 04:45 Sepsis Assessment - Evaluation Sepsis screening result: No Definite Risk - Focused Exam Vital Signs Temp Pulse Resp BP Pulse Ox 02/23/17 16:00 98.1 F 70 14 121/59 96 02/23/17 15:56 98.1 F 70 14 121/59 96 02/23/17 08:48 73 02/23/17 07:37 98.3 F 69 16 146/71 H 96 Respiratory exam: Present: CTA bilaterally. Absent: wheezes, crackles Cardiovascular exam: Present: RRR, S1, S2 Capillary refill: < 2-3 Seconds IRU A/P (1) Stroke Current visit: Yes Status: Acute Significant weakness noted. Pt is willing to work with PT and OT, cont with plan of care, reeval as needed. (2) Left hemiparesis Current visit: Yes Status: Acute cont with PT and OT as noted. (3) Dysphagia as late effect of stroke Current visit: Yes Status: Acute Speech to work with pt. Will follow FIM scores. (4) Diabetes mellitus Current visit: Yes Status: Chronic Managed by medical. (5) Atrial fibrillation Current visit: Yes Status: Chronic (6) Hypertension Current visit: Yes Status: Chronic Managed by medical. (7) Myopathy Current visit: Yes Status: Acute (8) Depression Current visit: Yes Status: Chronic (9) Head ache Current visit: Yes Status: Acute DVT Prophylaxis: Lovenox Resuscitation Status: Full Code - Course Hospital Course: Maximo Johnston MD: - Interventions to Obtain Goals PT Treatment Plan: Balance/Proprioception, Functional Activities, Gait Training , Manual Therapy, Patient/Family Education, Sensory Integration, Therapeutic Exercise OT Treatment Plan: ADL (Basic Care), Balance Training, IADL, Pt./Family Education, Ther. Exercise for ADL, UE Functional Training
--- NOTE | 2017-02-23 20:40 | Progress Note ---
Subjective: Taisha was seen with family members earlier this evening. She reported that she wanted to go back to her room although she was in her room. Family indicate she's not drinking well and doesn't like thickened liquids but has been upgraded to nectar thickened liquids. The patient told me that her left leg doesn't work very well but did not address her left arm. She denied dyspnea. Objective Vital signs: Temp Pulse Resp BP Pulse Ox 98.1 F 70 14 121/59 96 02/23/17 16:00 02/23/17 16:00 02/23/17 16:00 02/23/17 16:00 02/23/17 16:00 NAD More conversant than in the past, left nasolabial fold flattening/droop Left upper extremity in sling for support Respirations nonlabored Patient raises her right leg off the floor briefly, when attempting to raise her left there is visible muscle spasm in the left quads not previously evident. Body Mass Index: 25.2 - Constitutional Present: no acute distress, well nourished, well developed Results - Labs CBC & Chem 7: 02/23/17 04:45 02/23/17 04:45 Assessment and Plan (1) Stroke Current visit: Yes Status: Acute ischemic, s/p clot retrieval; small hemorrhagic conversion right MCA distribution (2) Diabetes mellitus Current visit: Yes Status: Chronic (3) Atrial fibrillation Current visit: Yes Status: Chronic (4) Hypertension Current visit: Yes Status: Chronic (5) Myopathy Current visit: Yes Status: Acute (6) Left hemiparesis Current visit: Yes Status: Acute due to CVA, +left sided neglect (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 Current visit: Yes Status: Acute (8) Depression Current visit: Yes Status: Chronic (9) Head ache Current visit: Yes Status: Acute (10) Hypernatremia Current visit: Yes Status: Acute Assessment and Plan: 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 -May aspirate intermittently. Continue to monitor. HTN -occasional moderate elevations but otherwise stable -continue current meds Hypernatremia -Probable dehydration, BUN up slightly from admission. -1 L normal saline overnight tonight with plans to give an additional liter tomorrow night. Will not give fluids during the day to permit patient to participate in therapy. -Recheck electrolytes 02/25. Sepsis Assessment - Evaluation Sepsis screening result: No Definite Risk - Focused Exam Vital Signs Temp Pulse Resp BP Pulse Ox 02/23/17 16:00 98.1 F 70 14 121/59 96 02/23/17 15:56 98.1 F 70 14 121/59 96 02/23/17 08:48 73 Respiratory exam: Present: CTA bilaterally. Absent: wheezes, crackles Cardiovascular exam: Present: RRR, S1, S2 Capillary refill: < 2-3 Seconds Hospital Course Summary Disclaimer: The visit summary below is not to be considered part of the above Progress Note. Hospital Course: 02/18/17 Mrs. Black transferred from [facility] after ischemic right MCA stroke one week ago. She underwent clot retrieval at [facility] with minimal improvement. Her reports that follow-up CT demonstrated some hemorrhagic transformation within the stroke bed and that they've been advised to hold warfarin until late February. The patient offered minimal history but indicated she's had mild right frontal headache since the clot retrieval. reports that she's had minor movement in her left foot but no use of her left arm over the past week. Her associate professor of violin is Dr. Herrera at [facility]. Of note patient's mother had history CVA. Examination is notable for intact extraocular movements, conjugate gaze, left nasolabial fold flattening/droop. Right director mobile is strong and she is able to raise her right arm to at least the shoulder level and hold it up against gentle resistance. There is no left director mobile in the left upper extremity is flaccid. Power in the right lower extremity is grossly normal distally and she can hold the right leg up against gentle resistance proximally. There is no proximal movement of the left leg, no left plantar flexion against gentle resistance, but she can wiggle the left toes slightly. Patient reports recognition of light touch on the right and the left are symmetric in the upper and lower extremities. Cardiac rhythm is regular. [facility] records reviewed-left visual cut was reported at [facility] on admission (02/11). 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 Small parenchymal hemorrhages were reported in the right basal basilar region up to 1 cm on 02/12, cerebral edema described but did not require treatment with hypertonic saline. Echo with bubble study revealed ejection fraction 60% and no evidence of LA/LV clot. Bubble study negative for shunt. Moderate TR with PAP 45. She required tube feedings via [place] through 02/16 when she was converted to an oral diet with thickened liquids. Discussed with (who provides much of history)/nursing. Continue aggressive rehabilitation. Resume warfarin in 4 weeks (03/11/17) as directed due to history underlying A. fib. If ongoing headache will require repeat imaging with noncontrast CT to evaluate hemorrhagic transformation/edema. 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
[2017-02-23] MEDS ORDERED: NS 1,000 ML IV SCH (20:45)
[2017-02-23] MEDS: AMLODIPINE 10 MG TABLET PO SCH (21:35)
[2017-02-23] MEDS: SIMVASTATIN 80 MG TABLET PO SCH (21:36)
[2017-02-23] MEDS: ACETAMINOPHEN 325 MG TABLET PO PRN (21:36)
[2017-02-23] MEDS: MELATONIN 5 MG TABLET PO PRN (21:36)
[2017-02-24] MEDS: INSULIN ASPART 100unit/ml INJECTION SQ PRN ×2 (05:17→14:00)
[2017-02-24] MEDS ORDERED: NS 1,000 ML IV SCH (08:30)
[2017-02-24] MEDS: ASPIRIN 325 MG TABLET PO SCH (08:54)
[2017-02-24] MEDS: METFORMIN 1,000 MG TABLET PO SCH (08:55)
[2017-02-24] MEDS: VITAMIN B COMPLEX + C TABLET PO SCH (08:55)
[2017-02-24] MEDS: DIGOXIN 125 MCG TABLET PO SCH (08:55)
[2017-02-24] MEDS: DOCUSATE SODIUM 100 MG CAPSULE PO SCH ×2 (08:55→20:16)
[2017-02-24] MEDS: RAMIPRIL 5 MG CAPSULE PO SCH (08:55)
[2017-02-24] MEDS: CITALOPRAM 20 MG TABLET PO SCH (08:55)
[2017-02-24] MEDS: ATENOLOL 50 MG TABLET PO SCH (08:56)
[2017-02-24] MEDS: INSULIN ASPART 100unit/ml INJECTION SQ SCH ×2 (08:56→17:55)
[2017-02-24] MEDS: LUTEIN 20 MG CAPSULE PO SCH (08:56)
[2017-02-24] MEDS: ENOXAPARIN 40 MG/0.4 ML INJECTION SQ SCH (08:57)
--- NOTE | 2017-02-24 09:00 | IRU Progress Note ---
Exam Vital Signs: Temp Pulse Resp BP Pulse Ox 98.1 F 70 18 133/79 98 02/24/17 07:14 02/24/17 08:55 02/24/17 07:14 02/24/17 07:14 02/24/17 07:14 Height: 1.68 m Weight: 67.5 kg Body Mass Index: 25.2 - Constitutional Present: no acute distress, well nourished, well developed Results - Labs CBC & Chem 7: 02/23/17 04:45 02/23/17 04:45 Sepsis Assessment - Evaluation Sepsis screening result: No Definite Risk - Focused Exam Vital Signs Temp Pulse Resp BP Pulse Ox 02/24/17 08:55 70 02/24/17 07:14 98.1 F 70 18 133/79 98 02/23/17 21:15 98.2 F 71 20 140/69 H 97 Respiratory exam: Present: CTA bilaterally. 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 Current visit: Yes Status: Acute (4) Diabetes mellitus Current visit: Yes Status: Chronic (5) Atrial fibrillation Current visit: Yes Status: Chronic (6) Hypertension Current visit: Yes Status: Chronic (7) Myopathy Current visit: Yes Status: Acute (8) Depression Current visit: Yes Status: Chronic (9) Head ache Current visit: Yes Status: Acute DVT Prophylaxis: Lovenox Resuscitation Status: Full Code - Course Hospital Course: Maximo Johnston MD: - Interventions to Obtain Goals PT Treatment Plan: Balance/Proprioception, Functional Activities, Gait Training , Manual Therapy, Patient/Family Education, Sensory Integration, Therapeutic Exercise OT Treatment Plan: ADL (Basic Care), Balance Training, IADL, Pt./Family Education, Ther. Exercise for ADL, UE Functional Training
--- NOTE | 2017-02-24 09:02 | IRU Progress Note ---
- Subjective/Serverity of Illness Resting in bed. Less involved in interview today. Exam Vital Signs: Temp Pulse Resp BP Pulse Ox 98.1 F 70 18 133/79 98 02/24/17 07:14 02/24/17 08:55 02/24/17 07:14 02/24/17 07:14 02/24/17 07:14 Height: 1.68 m Weight: 67.5 kg Body Mass Index: 25.2 - Constitutional Present: no acute distress, well nourished, well developed - Routine Respiratory Exam Present: CTA bilaterally. Absent: wheezes, crackles - Routine Cardiovascular Exam Present: RRR, no murmur Results - Labs CBC & Chem 7: 02/23/17 04:45 02/23/17 04:45 Sepsis Assessment - Evaluation Sepsis screening result: No Definite Risk - Focused Exam Vital Signs Temp Pulse Resp BP Pulse Ox 02/24/17 08:55 70 02/24/17 07:14 98.1 F 70 18 133/79 98 02/23/17 21:15 98.2 F 71 20 140/69 H 97 Respiratory exam: Present: CTA bilaterally. Absent: wheezes, crackles Cardiovascular exam: Present: RRR, S1, S2 Capillary refill: < 2-3 Seconds IRU A/P (1) Stroke Current visit: Yes Status: Acute Medical following post stroke care and bp management. (2) Left hemiparesis Current visit: Yes Status: Acute PT and OT working with pt to draft improvement in left upper and lower ext. 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 (4) Diabetes mellitus Current visit: Yes Status: Chronic managed by medical. (5) Atrial fibrillation Current visit: Yes Status: Chronic (6) Hypertension Current visit: Yes Status: Chronic (7) Myopathy Current visit: Yes Status: Acute Right sided strength should improve through PT and OT and allow more stability and safety. Left side (post cva hemiparesis) will be much slower to improve. (8) Depression Current visit: Yes Status: Chronic (9) Head ache Current visit: Yes Status: Acute DVT Prophylaxis: Lovenox Resuscitation Status: Full Code - Course Hospital Course: Maximo Johnston MD: - Interventions to Obtain Goals PT Treatment Plan: Balance/Proprioception, Functional Activities, Gait Training , Manual Therapy, Patient/Family Education, Sensory Integration, Therapeutic Exercise OT Treatment Plan: ADL (Basic Care), Balance Training, IADL, Pt./Family Education, Ther. Exercise for ADL, UE Functional Training
--- NOTE | 2017-02-24 09:47 | IRU Progress Note ---
- Subjective/Serverity of Illness Using right hand, still very little control over left side. Exam Vital Signs: Temp Pulse Resp BP Pulse Ox 98.1 F 70 18 133/79 98 02/24/17 07:14 02/24/17 08:55 02/24/17 07:14 02/24/17 07:14 02/24/17 07:14 Height: 1.68 m Weight: 67.5 kg Body Mass Index: 25.2 - Constitutional Present: no acute distress, well nourished, well developed - Routine Respiratory Exam Present: CTA bilaterally. Absent: rales, rhonchi - Routine Cardiovascular Exam Present: RRR, no murmur - Routine Neurological Exam Present: alert, motor deficit (left upper and lower ext.). Absent: sensory deficit Results - Labs CBC & Chem 7: 02/23/17 04:45 02/23/17 04:45 Sepsis Assessment - Evaluation Sepsis screening result: No Definite Risk - Focused Exam Vital Signs Temp Pulse Resp BP Pulse Ox 02/24/17 08:55 70 02/24/17 07:14 98.1 F 70 18 133/79 98 Respiratory exam: Present: CTA bilaterally. Absent: wheezes, crackles Cardiovascular exam: Present: RRR, S1, S2 Capillary refill: < 2-3 Seconds IRU A/P (1) Stroke Current visit: Yes Status: Acute Medical management continues. Staff working to increase stimulation to nerves.. (2) Left hemiparesis Current visit: Yes Status: Acute Patient has improved from total to max assist. Continue with PT and OT plan of care. 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 (4) Diabetes mellitus Current visit: Yes Status: Chronic (5) Atrial fibrillation Current visit: Yes Status: Chronic (6) Hypertension Current visit: Yes Status: Chronic (7) Myopathy Current visit: Yes Status: Acute (8) Depression Current visit: Yes Status: Chronic (9) Head ache Current visit: Yes Status: Acute DVT Prophylaxis: Lovenox Resuscitation Status: Full Code - Course Hospital Course: Maximo Johnston MD: - Interventions to Obtain Goals PT Treatment Plan: Balance/Proprioception, Functional Activities, Gait Training , Manual Therapy, Patient/Family Education, Sensory Integration, Therapeutic Exercise OT Treatment Plan: ADL (Basic Care), Balance Training, IADL, Pt./Family Education, Ther. Exercise for ADL, UE Functional Training
--- NOTE | 2017-02-24 10:41 | Progress Note ---
<Sophia Maldonado - Last Filed: 02/24/17 10:37> Subjective: Ms. Black is seen this morning in follow up for her recent CVA. She is seen while sitting in the day room, eating breakfast and working with speech therapy. The speech therapist reports that she is still struggling to drink fluids because she does not like the thickener. IV fluids were ordered last night but were unable to be given due to nursing being unable to get a line started. She was prompted to drink more fluids last night. She denies any complaints or concerns including no fevers, chill, chest pain, shortness of breath, abdominal pain, nausea, vomiting or dysuria. Her appetite is stable, though she admits to not liking the pureed food and bowels are moving. On exam, she is sitting in her wheelchair at the table with a flat, depressed affect. She is alert and orientated and answers questions appropriately. Cardiac exam reveals regular rate and rhythm with S1 and S2 and 2/6 murmur noted. Lung sounds are diminished bilaterally with poor inspiratory effort. Abdomen is soft, nontender with active bowel sounds. Trace edema noted to bilateral lower extremities. Persistent weakness to left lower extremity as compared to right. Upper extremity not assessed due to left arm in sling. Labs showed increased WBC to 14.7, hypernatremia at 150, hypokalemia at 3.5 and slight elevation in BUN at 36. BGMs are stable. Objective Vital signs: Temp Pulse Resp BP Pulse Ox 98.1 F 70 18 133/79 98 02/24/17 07:14 02/24/17 08:55 02/24/17 07:14 02/24/17 07:14 02/24/17 07:14 Body Mass Index: 25.2 - Constitutional Present: no acute distress, well nourished, well developed, cooperative - Routine HEENT Exam Head: Present: normocephalic, atraumatic Eye: Absent: conjunctival icterus, scleral injection ENT: Present: mucous membranes dry - Routine Respiratory Exam Present: decreased breath sounds, CTA bilaterally - Routine Cardiovascular Exam Present: RRR, S1, S2, murmur - Routine Abdominal Exam Present: soft, normoactive bowel sounds, non distended, non tender. Absent: distended - Routine Extremities Exam Present: edema (trace bilateral lower extremities), non tender. Absent: cyanosis Comments: weakness to left lower extremity and left upper extremity - Routine Musculoskeletal Exam Musculoskeletal: no clubbing or cyanosis, limited range of motion (weakness to left upper and lower extremity) - Routine Skin Exam Present: intact, dry, warm. Absent: erythema - Routine Neurological Exam Present: alert, motor deficit (left sided) - Routine Lymphatic Exam Lymphatic: Absent: lymphedema - Routine Psychiatric Exam Present: cooperative, depressed Comments: flat Results - Labs CBC & Chem 7: 02/23/17 04:45 02/23/17 04:45 Assessment and Plan (1) Stroke Current visit: Yes Status: Acute ischemic, s/p clot retrieval; small hemorrhagic conversion right MCA distribution (2) Diabetes mellitus Current visit: Yes Status: Chronic (3) Atrial fibrillation Current visit: Yes Status: Chronic (4) Hypertension Current visit: Yes Status: Chronic (5) Myopathy Current visit: Yes Status: Acute (6) Left hemiparesis Current visit: Yes Status: Acute due to CVA, +left sided neglect (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 -Overall, Ms. Black appears stable but depressed. Continue to encourage PT/OT /speech therapy - still with significant left hemiparesis. -Continue to hold warfarin (hx A-fib) until late February (03/11) but continue Lovenox + ASA. DM2 -Blood sugars stable and well controlled. Continue NovoLOG 3 units with breakfast and supper. -Continue to monitor BGMs closely. -Continue Metformin (contributing to frequent/loose stools) and SSI as needed. -Monitor closely for signs of hypoglycemia in light of decreased eating. Leukocytosis -Present on admission. 12.3 on 02/23 and increased to 14.7 today (02/24). Patient remains afebrile. -Will obtain CXR and UA for further evaluation - results pending. -Continue to encourage speech therapy. Patient may aspirate intermittently. Continue to monitor closely. -Encourage incentive spirometry as able for pulmonary toileting. HTN -Occasional moderate elevations but otherwise stable -Continue current meds and monitor closely. Hypernatremia and Hypokalemia -Most likely secondary to dehydration. NA+ 150 today and BUN elevated at 36. -Nursing attempted IV placement last night but was unsuccessful. Second nurse attempting today. -Give NS with KCl 20 mEq IV at 125cc/hr for fluid resuscitation x 1 liter. Will minimize fluids given during the day to permit patient to participate in therapy. -Recheck electrolytes 02/25 to monitor electrolytes and renal function. Depression -Continue Celexa 20mg daily. Monitor closely for signs of worsening depression and withdrawal. May consider psychiatric evaluation if indicated. Sepsis Assessment - Evaluation Sepsis screening result: No Definite Risk - Focused Exam Vital Signs Temp Pulse Resp BP Pulse Ox 02/24/17 08:55 70 02/24/17 07:14 98.1 F 70 18 133/79 98 Respiratory exam: Present: CTA bilaterally. Absent: wheezes, crackles Cardiovascular exam: Present: RRR, S1, S2 Capillary refill: < 2-3 Seconds Hospital Course Summary Disclaimer: The visit summary below is not to be considered part of the above Progress Note. Hospital Course: 02/18/17 Mrs. Black transferred from [facility] after ischemic right MCA stroke one week ago. She underwent clot retrieval at [facility] with minimal improvement. Her reports that follow-up CT demonstrated some hemorrhagic transformation within the stroke bed and that they've been advised to hold warfarin until late February. The patient offered minimal history but indicated she's had mild right frontal headache since the clot retrieval. reports that she's had minor movement in her left foot but no use of her left arm over the past week. Her transportation superintendent is Dr. Herrera at [facility]. Of note patient's mother had history CVA. Examination is notable for intact extraocular movements, conjugate gaze, left nasolabial fold flattening/droop. Right transition social worker is strong and she is able to raise her right arm to at least the shoulder level and hold it up against gentle resistance. There is no left transition social worker in the left upper extremity is flaccid. Power in the right lower extremity is grossly normal distally and she can hold the right leg up against gentle resistance proximally. There is no proximal movement of the left leg, no left plantar flexion against gentle resistance, but she can wiggle the left toes slightly. Patient reports recognition of light touch on the right and the left are symmetric in the upper and lower extremities. Cardiac rhythm is regular. [facility] records reviewed-left visual cut was reported at [facility] on admission (02/11). 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 Small parenchymal hemorrhages were reported in the right basal basilar region up to 1 cm on 02/12, cerebral edema described but did not require treatment with hypertonic saline. Echo with bubble study revealed ejection fraction 60% and no evidence of LA/LV clot. Bubble study negative for shunt. Moderate TR with PAP 45. She required tube feedings via [place] through 02/16 when she was converted to an oral diet with thickened liquids. Discussed with (who provides much of history)/nursing. Continue aggressive rehabilitation. Resume warfarin in 4 weeks (03/11/17) as directed due to history underlying A. fib. If ongoing headache will require repeat imaging with noncontrast CT to evaluate hemorrhagic transformation/edema. 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 -cont therapy -hold warfarin (hx A-fib) until late February (03/11) but cont Lovenox + ASA -no complaints of headache today DM -BGM under fairly good control -continue Metformin and SSI Leukocytosis 12.3 -noted on admit -afebrile -monitor HTN -continue current meds 02/22/17 11:53 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 -cont PT/OT/speech therapy - still with significant hemiparesis -hold warfarin (hx A-fib) until late February (03/11) but cont Lovenox + ASA DM2 -hyperglycemia noted, especially after breakfast and supper - start NovoLOG 3 units with breakfast and supper -continue Metformin (contributing to frequent/loose stools) and SSI Leukocytosis 12.3 -noted on admit, afebrile, recheck 02/23 HTN -occasional moderate elevations but otherwise stable -continue current meds 02/24/17 11:00 02/24/17 11:00 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 -Overall, Ms. Black appears stable but depressed. Continue to encourage PT/OT /speech therapy - still with significant left hemiparesis. -Continue to hold warfarin (hx A-fib) until late February (03/11) but continue Lovenox + ASA. DM2 -Blood sugars stable and well controlled. Continue NovoLOG 3 units with breakfast and supper. -Continue to monitor BGMs closely. -Continue Metformin (contributing to frequent/loose stools) and SSI as needed. -Monitor closely for signs of hypoglycemia in light of decreased eating. Leukocytosis -Present on admission. 12.3 on 02/23 and increased to 14.7 today (02/24). Patient remains afebrile. -Will obtain CXR and UA for further evaluation - results pending. -Continue to encourage speech therapy. Patient may aspirate intermittently. Continue to monitor closely. -Encourage incentive spirometry as able for pulmonary toileting. HTN -Occasional moderate elevations but otherwise stable -Continue current meds and monitor closely. Hypernatremia and Hypokalemia -Most likely secondary to dehydration. NA+ 150 today and BUN elevated at 36. -Nursing attempted IV placement last night but was unsuccessful. Second nurse attempting today. -Give NS with KCl 20 mEq IV at 125cc/hr for fluid resuscitation x 1 liter. Will minimize fluids given during the day to permit patient to participate in therapy. -Recheck electrolytes 02/25 to monitor electrolytes and renal function. Depression -Continue Celexa 20mg daily. Monitor closely for signs of worsening depression and withdrawal. May consider psychiatric evaluation if indicated. 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 I reviewed the chart, the patient's history, and the PA's documented findings as above. We discussed and formulated the assessment and plan as above with additions as below: Mrs. Black was seen in the lunch room with family members at bedside. Her expressed concern that the patient is not eating very well but the patient reported that she thinks she is drinking more today after change to nectar thickened liquids yesterday. She denied dyspnea and no fever has been reported. Her noted palpable muscle contraction in her left thigh earlier today. Respirations are nonlabored and breath sounds clear. Left upper extremity remains flaccid-when asked to transition social worker with her left hand the patient reached across with her right to manipulate her left fingers. Inability to give fluids overnight noted, midline has been placed and fluids initiated as above. Chest x-ray reviewed by myself-NAD. Pyuria present on UA, culture pending sample nitrite negative and some epithelial cells present. Given leukocytosis 2 days ago will empirically treat with ceftriaxone tonight pending additional information tomorrow. Sepsis Assessment - Focused Exam Vital Signs Temp Pulse Resp BP Pulse Ox 02/24/17 16:00 98.5 F 70 16 115/58 97 Hospital Course Summary Disclaimer: The visit summary below is not to be considered part of the above Progress Note.
--- NOTE | 2017-02-24 10:44 | XRay Report ---
Indication: s/p CVA, dysphagia, increased WBC PROCEDURE: XR chest 1V: Encounter: Initial Comparison: February 15, 2014 Findings: The lungs are stable in appearance without new focal airspace consolidation. There is no pleural effusion or pneumothorax. The heart size, pulmonary vascularity and mediastinal contours are unchanged. Right asymmetric or. Abandoned left-sided pacemaker leads. IMPRESSION: Stable appearance of the chest without acute cardiopulmonary disease. .
[2017-02-24] MEDS: POTASSIUM CHLORIDE INJ 20 MEQ in NS 1,000 ML IV SCH ×2 (14:03→20:29)
[2017-02-24] MEDS: SIMVASTATIN 80 MG TABLET PO SCH ×2 (20:15→22:31)
[2017-02-24] MEDS: AMLODIPINE 10 MG TABLET PO SCH ×2 (20:16→22:31)
[2017-02-24] MEDS ORDERED: CEFTRIAXONE 1 G in NS 100 ML IV SCH (21:00)
[2017-02-25] MEDS: POTASSIUM CHLORIDE INJ 20 MEQ in NS 1,000 ML IV SCH (01:34)
[2017-02-25] MEDS: MELATONIN 5 MG TABLET PO PRN ×2 (01:35→21:49)
[2017-02-25] MEDS: RAMIPRIL 5 MG CAPSULE PO SCH (08:29)
[2017-02-25] MEDS: LUTEIN 20 MG CAPSULE PO SCH (08:29)
[2017-02-25] MEDS: ATENOLOL 50 MG TABLET PO SCH (08:29)
[2017-02-25] MEDS: VITAMIN B COMPLEX + C TABLET PO SCH (08:29)
[2017-02-25] MEDS: ASPIRIN 325 MG TABLET PO SCH (08:29)
[2017-02-25] MEDS: DIGOXIN 125 MCG TABLET PO SCH (08:30)
[2017-02-25] MEDS: METFORMIN 1,000 MG TABLET PO SCH (08:30)
[2017-02-25] MEDS: CITALOPRAM 20 MG TABLET PO SCH (08:30)
[2017-02-25] MEDS: DOCUSATE SODIUM 100 MG CAPSULE PO SCH ×2 (08:30→21:49)
[2017-02-25] MEDS: ENOXAPARIN 40 MG/0.4 ML INJECTION SQ SCH (08:30)
[2017-02-25] MEDS: INSULIN ASPART 100unit/ml INJECTION SQ SCH ×2 (08:30→17:38)
[2017-02-25] MEDS: INSULIN ASPART 100unit/ml INJECTION SQ PRN (10:27)
[2017-02-25] MEDS: NS with KCL 20 mEq 1,000 ML IV SCH ×2 (11:47→23:01)
--- NOTE | 2017-02-25 12:23 | IRU Team Meeting ---
IRU Team Meeting - Nursing Bowel Frequency of Accidents: 2 accidents in past 7 days Vital Signs: Vital Signs - 24 hr 02/24/17 16:00 02/24/17 17:15 02/25/17 00:00 Temperature 98.5 F 98.7 F Pulse Rate 70 70 70 Respiratory Rate 16 16 18 Blood Pressure 115/58 143/65 H Pulse Oximetry 97 95 02/25/17 08:00 02/25/17 08:30 Temperature 98.5 F Pulse Rate 71 71 Respiratory Rate 18 Blood Pressure 144/73 H Pulse Oximetry 97 Current Medications: Acetaminophen (Tylenol) 325 - 650 mg PO Q4HR PRN PRN Reason: Pain Last Admin: 02/23/17 21:36 Dose: 650 mg Amlodipine Besylate (Norvasc) 10 mg PO HS [facility] Last Admin: 02/24/17 22:31 Dose: Not Given Aspirin (Asa) 325 mg PO DAILY [facility] Last Admin: 02/25/17 08:29 Dose: 325 mg Atenolol (Tenormin) 50 mg PO DAILY [facility] Last Admin: 02/25/17 08:29 Dose: 50 mg Citalopram Hydrobromide (Celexa) 20 mg PO DAILY [facility] Last Admin: 02/25/17 08:30 Dose: 20 mg Digoxin (Lanoxin) 125 mcg PO DAILY [facility] Last Admin: 02/25/17 08:30 Dose: 125 mcg Docusate Sodium (Colace) 100 mg PO BID [facility] Last Admin: 02/25/17 08:30 Dose: 100 mg Enoxaparin Sodium (Lovenox) 40 mg SQ DAILY [facility] Last Admin: 02/25/17 08:30 Dose: 40 mg Glucose (Glutose 15) 37.5 gm PO PRN PRN PRN Reason: Hypoglycemia Potassium Chloride/Sodium Chloride () 1,000 mls @ 100 mls/hr IV .Q10H [facility] Last Admin: 02/25/17 11:47 Dose: 100 mls/hr Ibuprofen (Motrin) 600 mg PO Q6H PRN PRN Reason: Pain Insulin Aspart (Novolog) 0 unit SQ SS PRN; Protocol PRN Reason: Hyperglycemia Last Admin: 02/25/17 10:27 Dose: 1 unit Insulin Aspart (Novolog) 3 unit SQ BIDBS [facility] Last Admin: 02/25/17 08:30 Dose: 3 unit Lutein () 20 mg PO DAILY [facility] Last Admin: 02/25/17 08:29 Dose: 20 mg Melatonin (Melatonin) 5 mg PO HS PRN PRN Reason: Insomnia Last Admin: 02/25/17 01:35 Dose: 5 mg Metformin HCl (Glucophage) 1,000 mg PO WB [facility] Last Admin: 02/25/17 08:30 Dose: 1,000 mg Multivitamins (Total B + C) 1 tab PO DAILY [facility] Last Admin: 02/25/17 08:29 Dose: 1 tab Ondansetron HCl (Zofran) 4 mg IVP Q6HR PRN PRN Reason: Nausea Pharmacy Consult () 1 each XX ONE TIME PRN PRN Reason: PRN orders Polyethylene Glycol (Miralax) 17 gm PO DAILY PRN PRN Reason: Constipation Ramipril (Altace) 10 mg PO DAILY [facility] Last Admin: 02/25/17 08:29 Dose: 10 mg Simvastatin (Zocor) 80 mg PO HS [facility] Comments: blood sugars managed. Pt has episodes of incontinence. ;2000 calorie consistent carb, nectar thick. able to eat oatmeal and chopped strawberries. Speech. 2-4 FIM on cog eval. Eats 25-80% of meals.Seems to forget to eat - Physical Therapy Sit to Stand Chair Transfer Ability: Maximal Assistance Stand to Sit Chair Transfer Ability: Total Assistance, 2 or More Person Assist Comments: Cooperative, but extreme weakness and proprioception difficulty. - Occupational Therapy Upper Body Dressing Ability: Maximal Assistance Lower Body Dressing Comment: Localizes on one area and forgets other areas. Significant left side neglect. - Care Plan Interventions/Goals: Supervision and encouragement during mealtimes to increase total calories. Reeval in one week. Barriers to d/c:left neglect, left side weakness, cognition, stamina.
[2017-02-25] MEDS: ACETAMINOPHEN 325 MG TABLET PO PRN (20:39)
[2017-02-25] MEDS: AMLODIPINE 10 MG TABLET PO SCH (21:49)
[2017-02-25] MEDS: SIMVASTATIN 40 MG TABLET PO SCH (21:49)
[2017-02-26] MEDS: VITAMIN B COMPLEX + C TABLET PO SCH (08:57)
[2017-02-26] MEDS: DIGOXIN 125 MCG TABLET PO SCH (08:57)
[2017-02-26] MEDS: DOCUSATE SODIUM 100 MG CAPSULE PO SCH ×2 (08:57→21:50)
[2017-02-26] MEDS: RAMIPRIL 5 MG CAPSULE PO SCH (08:57)
[2017-02-26] MEDS: METFORMIN 1,000 MG TABLET PO SCH (08:57)
[2017-02-26] MEDS: CITALOPRAM 20 MG TABLET PO SCH (08:58)
[2017-02-26] MEDS: ATENOLOL 50 MG TABLET PO SCH (08:58)
[2017-02-26] MEDS: LUTEIN 20 MG CAPSULE PO SCH (08:58)
[2017-02-26] MEDS: INSULIN ASPART 100unit/ml INJECTION SQ SCH ×2 (08:59→17:37)
[2017-02-26] MEDS: ENOXAPARIN 40 MG/0.4 ML INJECTION SQ SCH (08:59)
[2017-02-26] MEDS: NS with KCL 20 mEq 1,000 ML IV SCH ×2 (09:39→21:32)
[2017-02-26] MEDS: ASPIRIN 325 MG TABLET PO SCH (09:43)
--- NOTE | 2017-02-26 10:09 | Progress Note ---
Subjective: Taisha was seen during breakfast - speech therapy was working with her and today was her first time having "real" food - she was enjoying biscuits and gravy. She is gaining strength in her left leg. She states that she is starting to feel more on her left forearm (but before I arrived her left hand was caught under the table and the patient didn't realize it - speech therapist repositioned it for her). She hasn't had problems swallowing and her speech has been clear. Objective Vital signs: Temp Pulse Resp BP Pulse Ox 98.3 F 80 12 141/65 H 91 02/26/17 08:00 02/26/17 08:57 02/26/17 08:00 02/26/17 08:00 02/26/17 08:00 Weight: 67.3 kg - Constitutional Present: no acute distress, well nourished, well developed, cooperative - Routine HEENT Exam Eye: Absent: conjunctival icterus ENT: Present: mucous membranes moist - Routine Respiratory Exam Present: CTA bilaterally - Routine Cardiovascular Exam Present: S1, S2 - Routine Abdominal Exam Present: soft, normoactive bowel sounds, non distended, non tender - Routine Extremities Exam Present: no edema, pulses intact, normal capillary refill - Routine Musculoskeletal Exam Musculoskeletal: no clubbing or cyanosis - Routine Skin Exam Present: intact, dry - Routine Neurological Exam Present: alert, oriented X3, motor deficit (left leg strength improving; unable to activate any motor movement of left arm/shoulder/hand), hemineglect, facial asymmetry (left sided droop not as prominent), normal speech - Routine Psychiatric Exam Present: normal thought process Results - Labs CBC & Chem 7: 02/25/17 07:17 02/25/17 07:17 Assessment and Plan (1) Stroke Current visit: Yes Status: Acute ischemic, s/p clot retrieval; small hemorrhagic conversion right MCA distribution (2) Diabetes mellitus Current visit: Yes Status: Chronic (3) Atrial fibrillation Current visit: Yes Status: Chronic (4) Hypertension Current visit: Yes Status: Chronic (5) Myopathy Current visit: Yes Status: Acute (6) Left hemiparesis Current visit: Yes Status: Acute due to CVA, +left sided neglect (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 Leukocytosis also improved. Hypernatremia improved following IVF Hypokalemia - corrected Stroke with left hemiparesis - continue therapy. Improvement noted in leg mobility but LUE remains flaccid. Continue ASA/Lovenox and plan to resume warfarin late February. DM2 - under fairly good control. Repeat CBC and CMP in the morning to f/u on WBC, electrolyte abnormalities, and elevated LFTs. Sepsis Assessment - Evaluation Sepsis screening result: No Definite Risk - Focused Exam Vital Signs Temp Pulse Resp BP Pulse Ox 02/26/17 08:57 80 02/26/17 08:00 98.3 F 70 12 141/65 H 91 Respiratory exam: Present: CTA bilaterally. Absent: wheezes, crackles Cardiovascular exam: Present: RRR, S1, S2 Capillary refill: < 2-3 Seconds Hospital Course Summary Disclaimer: The visit summary below is not to be considered part of the above Progress Note. Hospital Course: 02/18/17 Mrs. Black transferred from [facility] after ischemic right MCA stroke one week ago. She underwent clot retrieval at [facility] with minimal improvement. Her reports that follow-up CT demonstrated some hemorrhagic transformation within the stroke bed and that they've been advised to hold warfarin until late February. The patient offered minimal history but indicated she's had mild right frontal headache since the clot retrieval. reports that she's had minor movement in her left foot but no use of her left arm over the past week. Her trimming cutter is Dr. Herrera at [facility]. Of note patient's mother had history CVA. Examination is notable for intact extraocular movements, conjugate gaze, left nasolabial fold flattening/droop. Right customer marketing manager is strong and she is able to raise her right arm to at least the shoulder level and hold it up against gentle resistance. There is no left customer marketing manager in the left upper extremity is flaccid. Power in the right lower extremity is grossly normal distally and she can hold the right leg up against gentle resistance proximally. There is no proximal movement of the left leg, no left plantar flexion against gentle resistance, but she can wiggle the left toes slightly. Patient reports recognition of light touch on the right and the left are symmetric in the upper and lower extremities. Cardiac rhythm is regular. [facility] records reviewed-left visual cut was reported at [facility] on admission (02/11). 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 Small parenchymal hemorrhages were reported in the right basal basilar region up to 1 cm on 02/12, cerebral edema described but did not require treatment with hypertonic saline. Echo with bubble study revealed ejection fraction 60% and no evidence of LA/LV clot. Bubble study negative for shunt. Moderate TR with PAP 45. She required tube feedings via [place] through 02/16 when she was converted to an oral diet with thickened liquids. Discussed with (who provides much of history)/nursing. Continue aggressive rehabilitation. Resume warfarin in 4 weeks (03/11/17) as directed due to history underlying A. fib. If ongoing headache will require repeat imaging with noncontrast CT to evaluate hemorrhagic transformation/edema. 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 -cont therapy -hold warfarin (hx A-fib) until late February (03/11) but cont Lovenox + ASA -no complaints of headache today DM -BGM under fairly good control -continue Metformin and SSI Leukocytosis 12.3 -noted on admit -afebrile -monitor HTN -continue current meds 02/22/17 11:53 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 -cont PT/OT/speech therapy - still with significant hemiparesis -hold warfarin (hx A-fib) until late February (03/11) but cont Lovenox + ASA DM2 -hyperglycemia noted, especially after breakfast and supper - start NovoLOG 3 units with breakfast and supper -continue Metformin (contributing to frequent/loose stools) and SSI Leukocytosis 12.3 -noted on admit, afebrile, recheck 02/23 HTN -occasional moderate elevations but otherwise stable -continue current meds 02/24/17 11:00 02/24/17 11:00 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 -Overall, Ms. Black appears stable but depressed. Continue to encourage PT/OT /speech therapy - still with significant left hemiparesis. -Continue to hold warfarin (hx A-fib) until late February (03/11) but continue Lovenox + ASA. DM2 -Blood sugars stable and well controlled. Continue NovoLOG 3 units with breakfast and supper. -Continue to monitor BGMs closely. -Continue Metformin (contributing to frequent/loose stools) and SSI as needed. -Monitor closely for signs of hypoglycemia in light of decreased eating. Leukocytosis -Present on admission. 12.3 on 02/23 and increased to 14.7 today (02/24). Patient remains afebrile. -Will obtain CXR and UA for further evaluation - results pending. -Continue to encourage speech therapy. Patient may aspirate intermittently. Continue to monitor closely. -Encourage incentive spirometry as able for pulmonary toileting. HTN -Occasional moderate elevations but otherwise stable -Continue current meds and monitor closely. Hypernatremia and Hypokalemia -Most likely secondary to dehydration. NA+ 150 today and BUN elevated at 36. -Nursing attempted IV placement last night but was unsuccessful. Second nurse attempting today. -Give NS with KCl 20 mEq IV at 125cc/hr for fluid resuscitation x 1 liter. Will minimize fluids given during the day to permit patient to participate in therapy. -Recheck electrolytes 02/25 to monitor electrolytes and renal function. Depression -Continue Celexa 20mg daily. Monitor closely for signs of worsening depression and withdrawal. May consider psychiatric evaluation if indicated. 02/26/17 10:36 UC grew out staph epi - Rocephin was dc'd 02/25/17. Leukocytosis also improved. Hypernatremia improved following IVF Hypokalemia - corrected Stroke with left hemiparesis - continue therapy. Improvement noted in leg mobility but LUE remains flaccid. Continue ASA/Lovenox and plan to resume warfarin late February. DM2 - under fairly good control. Repeat CBC and CMP in the morning to f/u on WBC, electrolyte abnormalities, and elevated LFTs.
[2017-02-26] MEDS: INSULIN ASPART 100unit/ml INJECTION SQ PRN (20:00)
[2017-02-26] MEDS: AMLODIPINE 10 MG TABLET PO SCH (21:50)
[2017-02-26] MEDS: ACETAMINOPHEN 325 MG TABLET PO PRN (21:50)
[2017-02-26] MEDS: SIMVASTATIN 40 MG TABLET PO SCH (21:50)
[2017-02-26] MEDS: MELATONIN 5 MG TABLET PO PRN (21:52)
[2017-02-27] MEDS: NS with KCL 20 mEq 1,000 ML IV SCH (07:42)
[2017-02-27] MEDS: CITALOPRAM 20 MG TABLET PO SCH (08:33)
[2017-02-27] MEDS: ATENOLOL 50 MG TABLET PO SCH (08:33)
[2017-02-27] MEDS: METFORMIN 1,000 MG TABLET PO SCH (08:33)
[2017-02-27] MEDS: RAMIPRIL 5 MG CAPSULE PO SCH (08:33)
[2017-02-27] MEDS: DOCUSATE SODIUM 100 MG CAPSULE PO SCH ×2 (08:33→20:53)
[2017-02-27] MEDS: ASPIRIN 325 MG TABLET PO SCH (08:34)
[2017-02-27] MEDS: LUTEIN 20 MG CAPSULE PO SCH (08:34)
[2017-02-27] MEDS: INSULIN ASPART 100unit/ml INJECTION SQ SCH ×2 (08:34→17:31)
[2017-02-27] MEDS: VITAMIN B COMPLEX + C TABLET PO SCH (08:34)
[2017-02-27] MEDS: ENOXAPARIN 40 MG/0.4 ML INJECTION SQ SCH (08:35)
[2017-02-27] MEDS: DIGOXIN 125 MCG TABLET PO SCH (08:35)
[2017-02-27] MEDS: INSULIN ASPART 100unit/ml INJECTION SQ PRN (20:53)
[2017-02-27] MEDS: SIMVASTATIN 40 MG TABLET PO SCH ×2 (20:53→22:40)
[2017-02-27] MEDS: AMLODIPINE 10 MG TABLET PO SCH ×2 (20:53→22:40)
[2017-02-28] MEDS: INSULIN ASPART 100unit/ml INJECTION SQ PRN ×3 (07:04→20:30)
[2017-02-28] MEDS: VITAMIN B COMPLEX + C TABLET PO SCH (09:24)
[2017-02-28] MEDS: LUTEIN 20 MG CAPSULE PO SCH (09:24)
[2017-02-28] MEDS: CITALOPRAM 20 MG TABLET PO SCH (09:24)
[2017-02-28] MEDS: DOCUSATE SODIUM 100 MG CAPSULE PO SCH ×2 (09:24→20:31)
[2017-02-28] MEDS: ASPIRIN 325 MG TABLET PO SCH (09:24)
[2017-02-28] MEDS: RAMIPRIL 5 MG CAPSULE PO SCH (09:25)
[2017-02-28] MEDS: INSULIN ASPART 100unit/ml INJECTION SQ SCH ×2 (09:25→17:57)
[2017-02-28] MEDS: ATENOLOL 50 MG TABLET PO SCH (09:25)
[2017-02-28] MEDS: DIGOXIN 125 MCG TABLET PO SCH (09:25)
[2017-02-28] MEDS: METFORMIN 1,000 MG TABLET PO SCH (09:25)
[2017-02-28] MEDS: ENOXAPARIN 40 MG/0.4 ML INJECTION SQ SCH (09:26)
[2017-02-28] MEDS ORDERED: FALL RISK - PHARMACY CONSULT MC PRN (10:00)
--- NOTE | 2017-02-28 11:31 | Progress Note ---
<Sophia Maldonado - Last Filed: 02/28/17 11:27> Subjective: Taisha is seen today in follow up for her recent CVA. Prior to evaluation, nursing had expressed concerns about erythema and swelling to her right foot which appears new. Taisha denies any complaints including no chest pain, shortness of breath, abdominal pain, nausea, vomiting or known injury to the area. She admits to history of neuropathy and denies any current pain or history of similar conditions. Exam of her right foot revealed mild swelling with significant redness to the foot and noted bluish discoloration to the plantar surface of the great toe. Pedal pulses bilaterally were difficult to detect. Significant varicose veins noted to bilateral ankles and feet. Objective Vital signs: Temp Pulse Resp BP Pulse Ox 98.2 F 70 18 132/66 93 02/28/17 08:16 02/28/17 09:25 02/28/17 08:16 02/28/17 08:16 02/28/17 08:16 Weight: 67.3 kg - Constitutional Present: no acute distress, well nourished, well developed, cooperative - Routine HEENT Exam Head: Present: normocephalic, atraumatic Eye: Absent: scleral injection - Routine Respiratory Exam Present: CTA bilaterally. Absent: respiratory distress - Routine Cardiovascular Exam Present: RRR, S1, S2 - Routine Abdominal Exam Present: soft, non distended, non tender - Routine Extremities Exam Comments: mild swelling with significant redness noted to right foot as compared to left with bluish discoloration noted to plantar surface of right great toe. Pedal pulses difficult to detect bilaterally. Extensive varicose veins to bilateral ankles and feet. Decreased sensation bilaterally with history of neuropathy. - Routine Skin Exam Present: intact, erythema (right foot), dry, warm. Absent: rash Comments: varicose veins to bilateral ankles and feet. - Routine Neurological Exam Present: alert - Routine Lymphatic Exam Lymphatic: Absent: lymphedema - Routine Psychiatric Exam Present: cooperative Results - Labs CBC & Chem 7: 02/27/17 04:43 02/27/17 04:43 Assessment and Plan (1) Stroke Current visit: Yes Status: Acute ischemic, s/p clot retrieval; small hemorrhagic conversion right MCA distribution (2) Diabetes mellitus Current visit: Yes Status: Chronic (3) Atrial fibrillation Current visit: Yes Status: Chronic (4) Hypertension Current visit: Yes Status: Chronic (5) Myopathy Current visit: Yes Status: Acute (6) Left hemiparesis Current visit: Yes Status: Acute due to CVA, +left sided neglect (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 -Obtain arterial and venous doppler US now for further evaluation. Results pending. Patient was seen and evaluated and patient case discussed with Dr. Basilio. -Concern for infection less likely in light of presentation, sudden onset, no leukocytosis and patient remains afebrile. Continue to monitor closely for signs of infection. -Continue ASA and Lovenox for anticoagulation. S/P CVA with left hemiparesis- -Continue to encourage therapy for strengthening and improvement in functional abilities per Dr. Johnston. -Continue to provide safe and supportive environment. -LUE remains flaccid and some improvement noted in LLE. -Continue ASA and Lovenox for anticoagulation with plan to resume warfarin in late February. Electrolyte abnormalities. -Hypernatremia resolved; Sodium 141 on 02/27 following IVF. -Recheck labs on 03/02 to monitor blood counts, electrolytes and renal function. DM. -Blood sugars stable. Continue to monitor. Sepsis Assessment - Evaluation Sepsis screening result: No Definite Risk - Focused Exam Vital Signs Temp Pulse Resp BP Pulse Ox 02/28/17 09:25 70 02/28/17 08:16 98.2 F 69 18 132/66 93 02/28/17 03:34 99.3 F 70 16 116/61 92 Respiratory exam: Present: CTA bilaterally. Absent: wheezes, crackles Cardiovascular exam: Present: RRR, S1, S2 Capillary refill: < 2-3 Seconds Hospital Course Summary Disclaimer: The visit summary below is not to be considered part of the above Progress Note. Hospital Course: 02/18/17 Mrs. Black transferred from [facility] after ischemic right MCA stroke one week ago. She underwent clot retrieval at [place] with minimal improvement. Her reports that follow-up CT demonstrated some hemorrhagic transformation within the stroke bed and that they've been advised to hold warfarin until late February. The patient offered minimal history but indicated she's had mild right frontal headache since the clot retrieval. reports that she's had minor movement in her left foot but no use of her left arm over the past week. Her construction inspector is Dr. Herrera at [facility]. Of note patient's mother had history CVA. Examination is notable for intact extraocular movements, conjugate gaze, left nasolabial fold flattening/droop. Right radio program director is strong and she is able to raise her right arm to at least the shoulder level and hold it up against gentle resistance. There is no left radio program director in the left upper extremity is flaccid. Power in the right lower extremity is grossly normal distally and she can hold the right leg up against gentle resistance proximally. There is no proximal movement of the left leg, no left plantar flexion against gentle resistance, but she can wiggle the left toes slightly. Patient reports recognition of light touch on the right and the left are symmetric in the upper and lower extremities. Cardiac rhythm is regular. [place] records reviewed-left visual cut was reported at [place] on admission (02/11). 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 Small parenchymal hemorrhages were reported in the right basal basilar region up to 1 cm on 02/12, cerebral edema described but did not require treatment with hypertonic saline. Echo with bubble study revealed ejection fraction 60% and no evidence of LA/LV clot. Bubble study negative for shunt. Moderate TR with PAP 45. She required tube feedings via [place] through 02/16 when she was converted to an oral diet with thickened liquids. Discussed with (who provides much of history)/nursing. Continue aggressive rehabilitation. Resume warfarin in 4 weeks (03/11/17) as directed due to history underlying A. fib. If ongoing headache will require repeat imaging with noncontrast CT to evaluate hemorrhagic transformation/edema. 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 -cont therapy -hold warfarin (hx A-fib) until late February (03/11) but cont Lovenox + ASA -no complaints of headache today DM -BGM under fairly good control -continue Metformin and SSI Leukocytosis 12.3 -noted on admit -afebrile -monitor HTN -continue current meds 02/22/17 11:53 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 -cont PT/OT/speech therapy - still with significant hemiparesis -hold warfarin (hx A-fib) until late February (03/11) but cont Lovenox + ASA DM2 -hyperglycemia noted, especially after breakfast and supper - start NovoLOG 3 units with breakfast and supper -continue Metformin (contributing to frequent/loose stools) and SSI Leukocytosis 12.3 -noted on admit, afebrile, recheck 02/23 HTN -occasional moderate elevations but otherwise stable -continue current meds 02/24/17 11:00 02/24/17 11:00 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 -Overall, Ms. Black appears stable but depressed. Continue to encourage PT/OT /speech therapy - still with significant left hemiparesis. -Continue to hold warfarin (hx A-fib) until late February (03/11) but continue Lovenox + ASA. DM2 -Blood sugars stable and well controlled. Continue NovoLOG 3 units with breakfast and supper. -Continue to monitor BGMs closely. -Continue Metformin (contributing to frequent/loose stools) and SSI as needed. -Monitor closely for signs of hypoglycemia in light of decreased eating. Leukocytosis -Present on admission. 12.3 on 02/23 and increased to 14.7 today (02/24). Patient remains afebrile. -Will obtain CXR and UA for further evaluation - results pending. -Continue to encourage speech therapy. Patient may aspirate intermittently. Continue to monitor closely. -Encourage incentive spirometry as able for pulmonary toileting. HTN -Occasional moderate elevations but otherwise stable -Continue current meds and monitor closely. Hypernatremia and Hypokalemia -Most likely secondary to dehydration. NA+ 150 today and BUN elevated at 36. -Nursing attempted IV placement last night but was unsuccessful. Second nurse attempting today. -Give NS with KCl 20 mEq IV at 125cc/hr for fluid resuscitation x 1 liter. Will minimize fluids given during the day to permit patient to participate in therapy. -Recheck electrolytes 02/25 to monitor electrolytes and renal function. Depression -Continue Celexa 20mg daily. Monitor closely for signs of worsening depression and withdrawal. May consider psychiatric evaluation if indicated. 02/26/17 10:36 UC grew out staph epi - Rocephin was dc'd 02/25/17. Leukocytosis also improved. Hypernatremia improved following IVF Hypokalemia - corrected Stroke with left hemiparesis - continue therapy. Improvement noted in leg mobility but LUE remains flaccid. Continue ASA/Lovenox and plan to resume warfarin late February. DM2 - under fairly good control. Repeat CBC and CMP in the morning to f/u on WBC, electrolyte abnormalities, and elevated LFTs. 02/28/17 11:45 Right foot swelling and redness, acute. -Obtain arterial and venous doppler US now for further evaluation. Results pending. Patient was seen and evaluated and patient case discussed with Dr. Basilio. -Concern for infection less likely in light of presentation, sudden onset, no leukocytosis and patient remains afebrile. Continue to monitor closely for signs of infection. -Continue ASA and Lovenox for anticoagulation. S/P CVA with left hemiparesis- -Continue to encourage therapy for strengthening and improvement in functional abilities per Dr. Johnston. -Continue to provide safe and supportive environment. -LUE remains flaccid and some improvement noted in LLE. -Continue ASA and Lovenox for anticoagulation with plan to resume warfarin in late February. Electrolyte abnormalities. -Hypernatremia resolved; Sodium 141 on 02/27 following IVF. -Recheck labs on 03/02 to monitor blood counts, electrolytes and renal function. DM. -Blood sugars stable. Continue to monitor. 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
[2017-02-28] MEDS ORDERED: WARFARIN 3 MG TABLET PO ONE (19:40)
[2017-02-28] MEDS: ENOXAPARIN 80 MG/0.8 ML INJECTION SQ SCH ×2 (20:15→23:00)
[2017-02-28] MEDS: AMLODIPINE 10 MG TABLET PO SCH ×2 (20:30→23:02)
[2017-02-28] MEDS: SIMVASTATIN 40 MG TABLET PO SCH ×2 (20:30→23:02)
[2017-03-01] MEDS: LUTEIN 20 MG CAPSULE PO SCH (08:53)
[2017-03-01] MEDS: ATENOLOL 50 MG TABLET PO SCH (08:53)
[2017-03-01] MEDS: VITAMIN B COMPLEX + C TABLET PO SCH (08:54)
[2017-03-01] MEDS: CITALOPRAM 20 MG TABLET PO SCH (08:54)
[2017-03-01] MEDS: RAMIPRIL 5 MG CAPSULE PO SCH (08:54)
[2017-03-01] MEDS: DIGOXIN 125 MCG TABLET PO SCH (08:54)
[2017-03-01] MEDS: DOCUSATE SODIUM 100 MG CAPSULE PO SCH ×2 (08:54→21:14)
[2017-03-01] MEDS: METFORMIN 1,000 MG TABLET PO SCH (08:54)
[2017-03-01] MEDS: INSULIN ASPART 100unit/ml INJECTION SQ SCH (08:55)
[2017-03-01] MEDS: ASPIRIN 325 MG TABLET PO SCH (08:55)
[2017-03-01] MEDS: INSULIN ASPART 100unit/ml INJECTION SQ PRN ×2 (11:00→20:01)
--- NOTE | 2017-03-01 11:23 | Pharmacy Consult ---
Pharmacy Consult-Warfarin - Laboratory Information 02/28/17 03/01/17 19:57 10:28 INR 1.17 1.17 As the INR did not increase, I'm going to increase the Warfarin dose to 5 mg today. The pharmacy will continue monitor the patient and the INR's and adjust the warfarin dose accordingly. Thanks for the Warfarin Dosing Protocol. [facility]
[2017-03-01] MEDS ORDERED: WARFARIN 5 MG TABLET PO SCH (12:00)
[2017-03-01] MEDS ORDERED: WARFARIN 3 MG TABLET PO SCH (12:00)
--- NOTE | 2017-03-01 12:54 | Progress Note ---
Subjective: Taisha is seen today in follow up. D/W Dr. Pierre- acute right foot color changes yesterday. Pt. denies any new pain or discomfort in the right leg. She is otherwise feeling ok. is here for exam- plan of care d/w him. Chart is reviewed for collateral information (both [facility] Objective Vital signs: Temp Pulse Resp BP Pulse Ox 98.6 F 70 14 139/68 95 03/01/17 07:39 03/01/17 08:54 03/01/17 07:39 03/01/17 07:39 03/01/17 07:39 Rhythm: Atrial Fibrillation with Normal Ventricular Rate Weight: 67.3 kg - Constitutional Present: no acute distress, well nourished, well developed, cooperative, other ( Left sided weakness. ) - Routine HEENT Exam Head: Present: normocephalic, atraumatic Eye: Present: PERRL, normal accommodation ENT: Present: mucous membranes moist - Routine Respiratory Exam Present: CTA bilaterally. Absent: accessory muscle use, rales, rhonchi, wheezes , crackles - Routine Cardiovascular Exam Present: S1, S2, no murmur, irregular rhythm. Absent: RRR - Routine Abdominal Exam Present: soft, normoactive bowel sounds, non distended, non tender - Routine Extremities Exam Present: cyanosis (See notes) Comments: Right foot: Midfoot to toes deep pink in color. Chronic spider veins in ankle area. Foot is cool, but not cold and temp is equivalent to left foot. Doppler present- unable to get DP pulse. PT 2/4+ with doppler. RN at bedside- instructed on exam, doppler Q 2 hours with visual checks of foot as well. Left foot is a bit discolored on toes- chronic. Spider veins also on left ankle. Foot is cool, not cold. Vascular compromise, acute, appears only on right foot. - Routine Musculoskeletal Exam Musculoskeletal: limited range of motion - Routine Skin Exam Present: intact, cyanosis (Right foot as detailed above. ), dry, warm - Routine Neurological Exam Present: alert, motor deficit, abnormal gait, facial asymmetry. Absent: CN II- XII intact, moving all extremities Left sided weakness ongoing. +Facial droop. Speech mildly slurred. Results - Labs CBC & Chem 7: 02/27/17 04:43 02/27/17 04:43 - Imaging and Cardiology Venous US Status: pending Additional comments: Preliminary: (Right LE) Venous- no DVT Arterial-Small vessel changes, decreased blood flow. No acute arterial occlusion. 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 Dotson ([facility])- Recommend no Warfarin. Ok to start Plavix with ASA. DVT Prophylaxis: Lovenox, other GI Prophylaxis: other (Not indicated) Resuscitation Status: Full Code Assessment and Plan: 03/01/17- *Ischemic stroke with complete right ICA occlusion extending into MCA with clot extraction/tPA Continue ASA, Statin. Not much recovery post procedure. Continue PT/OT/ST per Rehab team. *Small IPH, hemorrhagic transformation- Hold Warfarin until 03/11. If worsening mental status or CHAMBERLAIN does not improve, need to repeat CT head. Last CT 02/12. No MRI due to PPM *AFib- Rate control. No warfarin as above. *Right acute LE microvascular ischemia- Nurses instructed on neurovascular exam with dopplers Q 2 hours for now. D/W Dr. Pierre and with Dr. Dotson at [facility]. No warfarin or thinners recommended. Ok to start Plavix and ASA. Will decreased ASA to 81mg Q day given bleeding risk. Continue to monitor closely. *HTN- BP well controlled. Avoid excessive lowering to maintain perfusion. *DM2- BG is well controlled on metformin, she is on 3units of long acting insulin BID. Will stop the insulin, continue 1000mg AM metformin, add 500mg PM metformin. Monitor renal function given age- currently normal. *DVT px- will restart px. dose LMWH that was continued on transfer to prevent DVT. Avoid SCDs given concern for ischemia. High risk for complication, including ICH, bleeding, ischemia. Coordination of care included d/w attending as well as neurointensivist at [facility]. Charts at and [facility] reviewed. Sepsis Assessment - Evaluation Sepsis screening result: No Definite Risk - Focused Exam Vital Signs Temp Pulse Resp BP Pulse Ox 03/01/17 08:54 70 03/01/17 07:39 98.6 F 70 14 139/68 95 Respiratory exam: Present: CTA bilaterally. Absent: wheezes, crackles Cardiovascular exam: Present: RRR, S1, S2 Capillary refill: < 2-3 Seconds Hospital Course Summary Disclaimer: The visit summary below is not to be considered part of the above Progress Note. Hospital Course: 02/28/17 15:51 A/P: Redness/bluish toes with mild swelling of mid-foot -Likely blue toe syndrome -Pedal pulses present but decreased, motor/sensory function intact in LE, minimal pain -Doppler arterial/venous negative for occlusion calf arteries -Likely small vessel occlusion with emboli -Doppler did show decreased flow through calf arteries and diffuse atherosclerosis disease -Will plan on MAY and cardio consult for possible intervention -Medical management-->On statin and ASA 03/01/17 13:11 *Ischemic stroke with complete right ICA occlusion extending into MCA with clot extraction/tPA Continue ASA, Statin. Not much recovery post procedure. Continue PT/OT/ST per Rehab team. *Small IPH, hemorrhagic transformation- Hold Warfarin until 03/11. If worsening mental status or CHAMBERLAIN does not improve, need to repeat CT head. Last CT 02/12. No MRI due to PPM *AFib- Rate control. No warfarin as above. *Right acute LE microvascular ischemia- Nurses instructed on neurovascular exam with dopplers Q 2 hours for now. D/W Dr. Pierre and with Dr. Dotson at [facility]. No warfarin or thinners recommended. Ok to start Plavix and ASA. Will decreased ASA to 81mg Q day given bleeding risk. Continue to monitor closely. *HTN- BP well controlled. Avoid excessive lowering to maintain perfusion. *DM2- BG is well controlled on metformin, she is on 3units of long acting insulin BID. Will stop the insulin, continue 1000mg AM metformin, add 500mg PM metformin. Monitor renal function given age- currently normal. *DVT px- will restart px. dose LMWH that was continued on transfer to prevent DVT. Avoid SCDs given concern for ischemia
[2017-03-01] MEDS ORDERED: ASPIRIN 325 MG TABLET PO SCH (13:10)
[2017-03-01] MEDS: CLOPIDOGREL 75 MG TABLET PO SCH (14:16)
[2017-03-01] MEDS: METFORMIN 500 MG TABLET PO SCH (17:50)
[2017-03-01] MEDS: AMLODIPINE 10 MG TABLET PO SCH (21:14)
[2017-03-01] MEDS: SIMVASTATIN 40 MG TABLET PO SCH (21:14)
--- NOTE | 2017-03-01 23:18 | Ultrasound Report ---
Indication: swelling, erythema, discoloration great toe PROCEDURE: US venous doppler LE RT: Encounter: Initial Comparison: None Technique: Color Doppler duplex and grayscale sonographic imaging of the right lower extremity was performed. Findings: There is no evidence for acute deep venous thrombosis in the right thigh. Specifically, serial graded compression was performed from the inguinal ligament to the popliteal bifurcation, on the right thigh, demonstrating appropriate compressibility of the deep venous system. In addition, color and pulsed Doppler demonstrate appropriate spontaneous flow, variation with respiration, and augmentation with calf compression. At the ankle, normal flow is identified in the posterior tibial veins; these vessels are also normal in caliber. Impression: No evidence of acute DVT in the right lower limb. There is a preliminary report by [facility]. .
--- NOTE | 2017-03-01 23:22 | Ultrasound Report ---
Indication: acute swelling, erythema, discoloration great toe PROCEDURE: US arterial duplex LE RT: Technique: Grayscale color and duplex Doppler imaging was performed of the arterial tree of the right leg. Findings: RIGHT LEG (cm/sec) Common Femoral 121 Superficial Femoral Proximal 85.9 Mid 60.2 Distal 61.4 Popliteal 123 ARLENE-prox 17.4 [employer]-prox 15.7 ARLENE-dist 7.7 [employer]-dist 9.9 Dampened waveforms in the calf arteries with significantly decreased flow velocities. 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 There is a preliminary report by [facility]. .
[2017-03-02] MEDS: ACETAMINOPHEN 325 MG TABLET PO PRN ×2 (03:07→09:25)
[2017-03-02] MEDS: MELATONIN 5 MG TABLET PO PRN ×2 (03:07→22:15)
--- NOTE | 2017-03-02 08:55 | IRU Progress Note ---
- Subjective/Serverity of Illness Continued pain with right first toe. Willing to try PT today. Exam Vital Signs: Temp Pulse Resp BP Pulse Ox 98.5 F 70 16 116/61 96 03/01/17 19:29 03/01/17 19:29 03/01/17 19:29 03/01/17 19:29 03/01/17 19:29 Height: 1.68 m Weight: 67.3 kg Body Mass Index: 25.2 - Constitutional Present: no acute distress, well nourished, well developed, cooperative, other ( Left sided weakness. ) - Routine Chest/Breast/Axilla Exam Chest wall: Absent: tenderness - Routine Respiratory Exam Present: CTA bilaterally - Routine Cardiovascular Exam Present: RRR, no murmur Results - Labs CBC & Chem 7: 03/02/17 04:49 03/02/17 04:49 Sepsis Assessment - Evaluation Sepsis screening result: No Definite Risk - Focused Exam Respiratory exam: Present: CTA bilaterally. Absent: wheezes, crackles Cardiovascular exam: Present: RRR, S1, S2 Capillary refill: < 2-3 Seconds IRU A/P (1) Stroke Current visit: Yes Status: Acute PT and OT to continue with pt. If pain in foot is prohibitive or concerning, may hold PT/OT today. (2) Left hemiparesis Current visit: Yes Status: Acute PT and OT working well with pt. Cont with current plan. (3) Dysphagia as late effect of stroke Current visit: Yes Status: Acute Speech working with pt. (4) Diabetes mellitus Current visit: Yes Status: Chronic Medical to manage. (5) Atrial fibrillation Current visit: Yes Status: Chronic Medical to manage (6) Hypertension Current visit: Yes Status: Chronic (7) Myopathy Current visit: Yes Status: Acute COnt with PT and OT to increase strength and stamina. (8) Depression Current visit: Yes Status: Chronic (9) Head ache Current visit: Yes Status: Acute DVT Prophylaxis: Lovenox, other Resuscitation Status: Full Code - Course Hospital Course: Maximo Johnston MD: - Interventions to Obtain Goals PT Treatment Plan: Balance/Proprioception, Functional Activities, Gait Training , Manual Therapy, Patient/Family Education, Sensory Integration, Therapeutic Exercise OT Treatment Plan: ADL (Basic Care), Balance Training, IADL, Pt./Family Education, Ther. Exercise for ADL, UE Functional Training
--- NOTE | 2017-03-02 09:03 | Ultrasound Report ---
EXAM: US abdominal aortic aneurysm HISTORY: blue toe syndrome LOCATION OF DICTATION: [place] COMPARISON: No prior studies available for comparison. FINDINGS: A limited evaluation of the abdominal aorta was performed using 2-D, thompson-scale images and color Doppler flow images. AP and transverse measurements of the abdominal aorta were obtained: Proximal abdominal aorta measuring 2.4 x 1.8 cm Mid abdominal aorta measuring 1.5 x 1.7 cm Distal abdominal aorta measuring 1.4 x 1.5 cm No para-aortic masses or fluid collections were identified. There was a mild amount of scattered plaque formation in the abdominal aorta. IMPRESSION: No evidence of abdominal aortic aneurysm .
[2017-03-02] MEDS: DIGOXIN 125 MCG TABLET PO SCH (09:26)
[2017-03-02] MEDS: METFORMIN 1,000 MG TABLET PO SCH (09:26)
[2017-03-02] MEDS: VITAMIN B COMPLEX + C TABLET PO SCH (09:26)
[2017-03-02] MEDS: RAMIPRIL 5 MG CAPSULE PO SCH (09:26)
[2017-03-02] MEDS: DOCUSATE SODIUM 100 MG CAPSULE PO SCH ×2 (09:26→22:17)
[2017-03-02] MEDS: LUTEIN 20 MG CAPSULE PO SCH (09:26)
[2017-03-02] MEDS: CITALOPRAM 20 MG TABLET PO SCH (09:27)
[2017-03-02] MEDS: ATENOLOL 50 MG TABLET PO SCH (09:27)
[2017-03-02] MEDS: ENOXAPARIN 40 MG/0.4 ML INJECTION SQ SCH (09:29)
[2017-03-02] MEDS ORDERED: ASPIRIN 81 MG CHEWABLE TABLET PO ONE (09:45)
[2017-03-02] MEDS: CLOPIDOGREL 75 MG TABLET PO SCH (10:12)
[2017-03-02] MEDS: INSULIN ASPART 100unit/ml INJECTION SQ PRN (11:07)
--- NOTE | 2017-03-02 12:07 | Progress Note ---
Subjective: I received a call from the IRU nurse - Taisha has been complaining of tenderness to her left arm/wrist. There is erythema and warmth and swelling. This arm is still flaccid. When I arrived in her room, Taisha was resting with her eyes closed, sitting in her wheelchair. She opened her eyes briefly when I examined her then closed them again. Objective Vital signs: Temp Pulse Resp BP Pulse Ox 98.2 F 72 16 134/63 95 03/02/17 08:10 03/02/17 09:26 03/02/17 08:10 03/02/17 08:10 03/02/17 08:10 Body Mass Index: 25.2 - Constitutional Present: no acute distress, well nourished, well developed, cooperative, other ( resting) - Routine HEENT Exam ENT: Present: mucous membranes moist - Routine Respiratory Exam Present: CTA bilaterally - Routine Cardiovascular Exam Present: S1, S2, murmur - Routine Abdominal Exam Present: normoactive bowel sounds - Routine Musculoskeletal Exam Musculoskeletal: limited range of motion - Routine Skin Exam Present: intact, erythema (left wrist), warm - Routine Neurological Exam left arm flaccid Results - Labs CBC & Chem 7: 03/02/17 04:49 03/02/17 04:49 Assessment and Plan (1) Stroke Current visit: Yes Status: Acute ischemic, s/p clot retrieval; small hemorrhagic conversion right MCA distribution (2) Diabetes mellitus Current visit: Yes Status: Chronic (3) Atrial fibrillation Current visit: Yes Status: Chronic (4) Hypertension Current visit: Yes Status: Chronic (5) Myopathy Current visit: Yes Status: Acute (6) Left hemiparesis Current visit: Yes Status: Acute due to CVA, +left sided neglect (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 Recommend no Warfarin. Ok to start Plavix with ASA. Assessment and Plan: Ischemic stroke with hemorrhagic transformation; suspect ongoing microemboli -ASA, Plavix, statin -resume Coumadin 03/11 -PT/OT Left arm swelling, erythema -radial pulses intact -monitor for now DM2 -Insulin was dc'd and metformin increased on 03/01 -BGM 220 after breakfast today -cont to monitor Discussed with Dr. Pierre Sepsis Assessment - Evaluation Sepsis screening result: No Definite Risk - Focused Exam Vital Signs Temp Pulse Resp BP Pulse Ox 03/02/17 09:26 72 03/02/17 08:10 98.2 F 70 16 134/63 95 Respiratory exam: Present: CTA bilaterally. Absent: wheezes, crackles Cardiovascular exam: Present: RRR, S1, S2 Capillary refill: < 2-3 Seconds Hospital Course Summary Disclaimer: The visit summary below is not to be considered part of the above Progress Note. Hospital Course: 02/28/17 15:51 A/P: Redness/bluish toes with mild swelling of mid-foot -Likely blue toe syndrome -Pedal pulses present but decreased, motor/sensory function intact in LE, minimal pain -Doppler arterial/venous negative for occlusion calf arteries -Likely small vessel occlusion with emboli -Doppler did show decreased flow through calf arteries and diffuse atherosclerosis disease -Will plan on MAY and cardio consult for possible intervention -Medical management-->On statin and ASA 03/01/17 13:11 *Ischemic stroke with complete right ICA occlusion extending into MCA with clot extraction/tPA Continue ASA, Statin. Not much recovery post procedure. Continue PT/OT/ST per Rehab team. *Small IPH, hemorrhagic transformation- Hold Warfarin until 03/11. If worsening mental status or CHAMBERLAIN does not improve, need to repeat CT head. Last CT 02/12. No MRI due to PPM *AFib- Rate control. No warfarin as above. *Right acute LE microvascular ischemia- Nurses instructed on neurovascular exam with dopplers Q 2 hours for now. D/W Dr. Pierre and with Dr[facility] at [facility]. No warfarin or thinners recommended. Ok to start Plavix and ASA. Will decreased ASA to 81mg Q day given bleeding risk. Continue to monitor closely. *HTN- BP well controlled. Avoid excessive lowering to maintain perfusion. *DM2- BG is well controlled on metformin, she is on 3units of long acting insulin BID. Will stop the insulin, continue 1000mg AM metformin, add 500mg PM metformin. Monitor renal function given age- currently normal. *DVT px- will restart px. dose LMWH that was continued on transfer to prevent DVT. Avoid SCDs given concern for ischemia 03/02/17 12:26 Ischemic stroke with hemorrhagic transformation; suspect ongoing microemboli -ASA, Plavix, statin -resume Coumadin 03/11 -PT/OT Left arm swelling, erythema -radial pulses intact -monitor for now DM2 -Insulin was dc'd and metformin increased on 03/01 -BGM 220 after breakfast today -cont to monitor
[2017-03-02] MEDS: METFORMIN 500 MG TABLET PO SCH (17:39)
[2017-03-02] MEDS: SIMVASTATIN 40 MG TABLET PO SCH (22:16)
[2017-03-02] MEDS: AMLODIPINE 10 MG TABLET PO SCH (22:16)
[2017-03-03] MEDS ORDERED: ACETAMINOPHEN 325 MG SUPPOSITORY PR PRN (03:11)
[2017-03-03] MEDS: ENOXAPARIN 40 MG/0.4 ML INJECTION SQ SCH (09:55)
[2017-03-03] MEDS: DOCUSATE SODIUM 100 MG CAPSULE PO SCH ×2 (09:56→20:50)
[2017-03-03] MEDS: RAMIPRIL 5 MG CAPSULE PO SCH (09:56)
[2017-03-03] MEDS: ACETAMINOPHEN 325 MG TABLET PO PRN ×2 (09:56→20:50)
[2017-03-03] MEDS: DIGOXIN 125 MCG TABLET PO SCH (09:57)
[2017-03-03] MEDS: CLOPIDOGREL 75 MG TABLET PO SCH (09:57)
[2017-03-03] MEDS: METFORMIN 1,000 MG TABLET PO SCH (09:57)
[2017-03-03] MEDS: VITAMIN B COMPLEX + C TABLET PO SCH (09:57)
[2017-03-03] MEDS: LUTEIN 20 MG CAPSULE PO SCH (09:57)
[2017-03-03] MEDS: CITALOPRAM 20 MG TABLET PO SCH (09:57)
[2017-03-03] MEDS: ATENOLOL 50 MG TABLET PO SCH (09:57)
[2017-03-03] MEDS: ASPIRIN 81 MG CHEWABLE TABLET PO SCH (09:57)
--- NOTE | 2017-03-03 12:18 | IRU Team Meeting ---
IRU Team Meeting - Nursing Vital Signs: Vital Signs - 24 hr 03/02/17 16:00 03/02/17 20:35 03/03/17 08:00 Temperature 97.3 F 97.7 F 98.0 F Pulse Rate 70 70 70 Respiratory Rate 16 18 16 Blood Pressure 106/56 111/57 128/62 Pulse Oximetry 96 95 95 03/03/17 09:57 Temperature Pulse Rate 68 Respiratory Rate Blood Pressure Pulse Oximetry Current Medications: Acetaminophen (Tylenol Supp) 325 mg CA Q5HR PRN Last Admin: 03/03/17 03:17 Dose: 325 mg Acetaminophen (Tylenol) 325 - 650 mg PO Q4HR PRN PRN Reason: Pain Last Admin: 03/03/17 09:56 Dose: 325 mg Amlodipine Besylate (Norvasc) 10 mg PO HS [facility] Last Admin: 03/02/17 22:16 Dose: 10 mg Aspirin (Asa) 81 mg PO DAILY [facility] Last Admin: 03/03/17 09:57 Dose: 81 mg Atenolol (Tenormin) 50 mg PO DAILY [facility] Last Admin: 03/03/17 09:57 Dose: 50 mg Citalopram Hydrobromide (Celexa) 20 mg PO DAILY [facility] Last Admin: 03/03/17 09:57 Dose: 20 mg Clopidogrel Bisulfate (Plavix) 75 mg PO DAILY [facility] Last Admin: 03/03/17 09:57 Dose: 75 mg Digoxin (Lanoxin) 125 mcg PO DAILY [facility] Last Admin: 03/03/17 09:57 Dose: 125 mcg Docusate Sodium (Colace) 100 mg PO BID [facility] Last Admin: 03/03/17 09:56 Dose: 100 mg Enoxaparin Sodium (Lovenox) 40 mg SQ DAILY [facility] Last Admin: 03/03/17 09:55 Dose: 40 mg Glucose (Glutose 15) 37.5 gm PO PRN PRN PRN Reason: Hypoglycemia Insulin Aspart (Novolog) 0 unit SQ SS PRN; Protocol PRN Reason: Hyperglycemia Last Admin: 03/02/17 11:07 Dose: 2 unit Lutein () 20 mg PO DAILY [facility] Last Admin: 03/03/17 09:57 Dose: 20 mg Melatonin (Melatonin) 5 mg PO HS PRN PRN Reason: Insomnia Last Admin: 03/02/17 22:15 Dose: 5 mg Metformin HCl (Glucophage) 500 mg PO [facility] Last Admin: 03/02/17 17:39 Dose: 500 mg Metformin HCl (Glucophage) 1,000 mg PO WB [facility] Last Admin: 03/03/17 09:57 Dose: 1,000 mg Multivitamins (Total B + C) 1 tab PO DAILY [facility] Last Admin: 03/03/17 09:57 Dose: 1 tab Ondansetron HCl (Zofran) 4 mg IVP Q6HR PRN PRN Reason: Nausea Polyethylene Glycol (Miralax) 17 gm PO DAILY PRN PRN Reason: Constipation Ramipril (Altace) 10 mg PO DAILY [facility] Last Admin: 03/03/17 09:56 Dose: 10 mg Simvastatin (Zocor) 80 mg PO HS [facility] Last Admin: 03/02/17 22:16 Dose: 80 mg Comments: Continues with poor appetite. Was scheduled for GUILLERMO today, moved it to tomorrow and can do in the room rather than having to d/c. Difficulty tracking on large print sentences, but making progress. - Physical Therapy Comments: Requiring max assist to total assist. Very slow progress. - Occupational Therapy Lower Body Dressing Comment: Max to total assist in all areas. - Care Plan Interventions/Goals: Supervision with meals to encourage and remind her to eat. [place] thick liquids ,chopped meat. D/c plan pending. Some difficulty coordinating with family. Consider intermediate care. Reeval next week, team meeting. Barriers to d/c: neglect , strength, cognition, oral intake,
--- NOTE | 2017-03-03 17:37 | Echocardiogram ---
DATE OF STUDY 03/02/2017 INDICATIONS Blue toe syndrome, atrial fibrillation, recent stroke, suspected cardiac source of systemic emboli, full anticoagulation delayed per neurosurgery recommendation from Lesley Beltran in [place]. TECHNICAL QUALITY Technically good 2D, M-mode, Doppler echocardiographic images were submitted for interpretation. FINDINGS 1. CARDIAC CHAMBERS: Left atrium appears mildly enlarged. All other cardiac chambers are normal in size. RV size is upper normal range with preserved contractility. Aortic root diameter is normal. 2. LEFT VENTRICLE: Wall thickness is normal. Wall motion analysis is normal except for mildly abnormal septal wall motion due to ventricular paced rhythm. LV systolic function is preserved with ejection fraction measured at 57%. Underlying atrial fibrillation is noted. No tissue Doppler was performed for diastolic function assessment. 3. VALVES: Aortic and mitral valve exhibit [id number] sclerotic changes including the annuli. Leaflet sclerosis is present. Valve motion appears preserved although the aortic valve opening appears mildly restricted. Tricuspid valve structure and motion appear normal. Normal valve excursion. Multiple pacemaker leads are seen in the right ventricle and appear to be unremarkable. 4. DOPPLER: [id number] mitral regurgitation. Eccentric jet posteriorly. Mild aortic valve stenosis. Peak flow velocity of 2.14 m/sec. Peak and mean pressure gradient of 18 and 11 mmHg. LVOT diameter of 2 cm calculates an aortic valve area of 1.32 cm2 suggestive of [id number] aortic stenosis. There is moderate tricuspid regurgitation present with estimated systolic pressure of 45 mmHg based on Bernoulli equation. Central venous pressure is elevated based on dilated IVC that exhibits minimal respiratory variation. No evidence of pericardial effusion, intracardiac masses, demonstrable thrombi, vegetations or shunts. IMPRESSION 1. Left atrial enlargement. 2. Normal left ventricular systolic function, EF 57%. 3. Bamg-st-hkdtkpel mitral regurgitation. 4. Bmfm-bt-kutunsnm aortic stenosis. 5. Moderate tricuspid regurgitation. 6. Patient is in atrial fibrillation with ventricular paced rhythm during the study. 7. No demonstrable intracardiac masses, thrombi, vegetations or shunts. [facility]
[2017-03-03] MEDS: METFORMIN 500 MG TABLET PO SCH (17:54)
[2017-03-03] MEDS: SIMVASTATIN 40 MG TABLET PO SCH (20:51)
[2017-03-03] MEDS: AMLODIPINE 10 MG TABLET PO SCH (20:52)
[2017-03-03] MEDS: MELATONIN 5 MG TABLET PO PRN (20:52)
[2017-03-03] MEDS ORDERED: SALINE FLUSH 10ml SYRINGE IV PRN (21:01)
[2017-03-03] MEDS: SALINE FLUSH 10ml SYRINGE IV PRN (21:10)
[2017-03-04] MEDS: SALINE FLUSH 10ml SYRINGE IV PRN (05:39)
[2017-03-04] MEDS: AMLODIPINE 10 MG TABLET PO SCH (05:40)
[2017-03-04] MEDS: SIMVASTATIN 40 MG TABLET PO SCH (05:41)
[2017-03-04] MEDS ORDERED: SALINE FLUSH 10ml SYRINGE ONE (09:49)
[2017-03-04] MEDS ORDERED: METOCLOPRAMIDE 10mg/2ml INJECTION IVP PRN (11:15)
[2017-03-04] MEDS ORDERED: BISACODYL 10 MG SUPPOSITORY RECTALLY PRN (11:15)
[2017-03-04] MEDS ORDERED: MAG-AL + SIM ORAL LIQUID 30ml PO PRN (11:15)
[2017-03-04] MEDS ORDERED: LORazepam 0.5 MG TABLET PO PRN (11:15)
[2017-03-04] MEDS ORDERED: PROMETHAZINE 25 MG INJECTION IVP PRN (11:15)
[2017-03-04] MEDS ORDERED: MIDAZOLAM 2mg/2ml INJECTION IVP ONE (11:32)
[2017-03-04] MEDS ORDERED: FentaNYL 100 MCG/2 ML INJECTION IVP ONE (11:32)
--- NOTE | 2017-03-04 11:40 | Cardiology Consult Note ---
History of Present Illness Consult date: 03/02/17 Chief complaint: blue toes History of present illness: And Mrs. Wills is an unfortunate 87-year-old female with history of atrial fibrillation permanent pacemaker in place and no known congestive heart failure or coronary artery disease. She had initially presented on February 11 with a right MCA stroke ischemic stroke manifested by aphasia and dense left hemiparesis she had a totally occluded MCA which was extracted by interventional radiology she had missed the TPA window. Her INR was subtherapeutic at 1.3. Apparently her stroke was complicated by an element of hemorrhagic transformation and she is treated with aspirin and Plavix and anticoagulation withheld for a planned 4 weeks per neurology intensive care team and [facility]. Patient was discharged from there on February 17 and admitted to [facility] inpatient rehabilitation. Patient has been working lightly with physical therapy. I was notified of a consultation by hospitalist service due to blue toes. Patient to discuss of numbness and tingling in both feet. She is able to stand up on her feet with assist she still very weak in her left side. She still has trouble with comprehending speech. She denies chest pain dyspnea palpitations or syncope. Her is at bedside and provided a lot of details regarding her cardiac past history as a patient herself is a poor historian Review of Systems - Constitutional Constitutional: Present: weakness. Absent: chills, fever(s), lethargy, malaise - EENMT Eyes: Absent: blurry vision Ears: Absent: ear pain Nose: Absent: nosebleeds Mouth/Throat: Present: changes in swallowing. Absent: sore throat, scratchy throat, drooling - Cardiovascular Cardiovascular: Absent: chest pain, palpitations, edema, heart murmur Rhythm: Present: regular rhythm Vascular: Present: pallor of an extermity, varicosities. Absent: pedal edema, unilateral swelling - Respiratory Respiratory: Absent: cough, dyspnea, hemoptysis, dyspnea on exertion, wheezing - Gastrointestinal Gastrointestinal: Absent: abdominal pain, constipation, diarrhea, hematemesis, hematochezia, melena, nausea, vomiting - Genitourinary Genitourinary: Absent: hematuria - Musculoskeletal Musculoskeletal: Present: abnormal gait (2 person assist with activity), muscle weakness (left sided weakness). Absent: deformity, neck pain, stiffness - Integumentary/Breasts Integumentary: Absent: erythema, lesions, rash - Neurological Neurological: Present: abnormal gait, focal weakness (left sided). Absent: abnormal speech, confusion, dizziness, numbness, weakness - Psychiatric Psychiatric: Absent: anxiety, depression [facility] Patient Stated Medical History Cerebrovascular Accident Yes: 02/11/2017 Cataracts Yes Glaucoma Yes Hearing Loss Yes Macular Degeneration Yes Cardiac Arrhythmia Yes: Hx of atrial fib Hypertension Yes Diabetes Mellitus Type 2 Yes: Diet controlled Hx Incontinence Yes Hx Renal Disease No Other Yes: incontinence Other Yes: vein stripping Depression Yes Surgical History: Pacemaker insertion bilaterally, old pacemaker was left sided chin requiring multiple battery change out and apparently a lead fracture that led to a and new implant of a right-sided appointment pacemaker procedure done through her electrolytic de scaler's Daniel and Dr. Herrera is a noninvasive electrolytic de scaler both in [facility]. Patient did require a total of 4 pacemaker surgeries including battery replacements. cholecystectomy. cataracts. Bilateral knee replacements. tonsillectomy. hernia repair. varicose vein stripping - Social History Smoking status: Never smoker Substance use type: does not use Alcohol intake frequency: does not drink Household members: spouse Current residence: Apartment/Private Home Medications Home Medications Medication Instructions Recorded Confirmed Type Atenolol 50 mg PO DAILY #0 03/03/13 02/17/17 History Digoxin 125 mcg PO DAILY #0 03/03/13 02/17/17 History Acetaminophen 325 - 650 mg PO Q4HR PRN 02/17/17 02/17/17 History Amlodipine 10 mg PO HS 02/17/17 02/17/17 History Aspirin 325 mg PO DAILY 02/17/17 02/17/17 History Citalopram [Celexa] 10 mg PO DAILY 02/17/17 02/17/17 History Docusate Sodium [Colace] 1 cap PO BID 02/17/17 02/17/17 History Enoxaparin [Lovenox] 40 mg SQ DAILY 02/17/17 02/17/17 History Hydralazine Inj [Apresoline] 0.5 ml IVP Q4HR PRN 02/17/17 02/17/17 History Ibuprofen [Motrin] 600 mg PO Q6H PRN 02/17/17 02/17/17 History Lutein 20 mg PO DAILY 02/17/17 02/17/17 History Melatonin 5 mg PO HS PRN 02/17/17 02/17/17 History [place]-3/Dha/Epa/Fish Oil [[place]-3 1,000 mg PO DAILY 02/17/17 02/17/17 History Fish Oil 1,000 mg Sfgl] Ondansetron Inj [Zofran] 4 mg IVP Q6HR PRN 02/17/17 02/17/17 History Polyethylene Glycol 3350 [Miralax] 17 gm PO DAILY PRN 02/17/17 02/17/17 History Ramipril 10 mg PO DAILY 02/17/17 02/17/17 History Simvastatin 80 mg PO HS 02/17/17 02/17/17 History Vitamin B Complex Vit C No.4 150 mg PO DAILY 02/17/17 02/17/17 History [Super B Complex] Allergies Allergy/AdvReac Type Severity Reaction Status Date / Time lomefloxacin Allergy Mild RASH Verified 02/17/17 17:19 morphine Allergy Mild RASH Verified 02/17/17 17:19 Penicillins Allergy Mild RASH Verified 02/17/17 17:19 pentazocine Allergy Mild RASH Verified 02/17/17 17:19 propacetamol Allergy Mild RASH Verified 02/17/17 17:28 Tetanus Vaccines and Toxoid Allergy Unknown Verified 02/17/17 17:19 metformin AdvReac Mild DIARRHEA Verified 02/17/17 17:19 Exam Vital signs: Temp Pulse Resp BP Pulse Ox 97.9 F 85 16 103/54 96 03/04/17 07:26 03/04/17 11:00 03/04/17 11:00 03/04/17 11:00 03/04/17 11:00 - Constitutional no acute distress - Routine HEENT Exam Head: Present: normocephalic, atraumatic Eye: Present: EOMI, PERRL ENT: Present: mucous membranes moist - Routine Neck Exam Present: normal carotid upstroke. Absent: JVD, carotid bruit, lymphadenopathy, thyromegaly - Routine Chest/Breast/Axilla Exam Chest wall: Present: pacemaker (bilaterally, left side with the only palpable leads). Absent: tenderness - Routine Respiratory Exam Present: CTA bilaterally - Routine Cardiovascular Exam Present: RRR, S1, S2, murmur (2/6 at best heard in the base of the heart radiating in the left lower sternal border). Absent: JVD - Detailed Cardiovascular Exam Palpation: Absent: heave, thrill Auscultation: Absent: loud S2 - Routine Abdominal Exam Present: soft, normoactive bowel sounds, non distended, non tender. Absent: tenderness - Routine Extremities Exam Present: pallor (mild pallor in the ball of theRight foot. No ulcers ,skin is intact. Toes appear dusky tissue the medial 2), extremity cold to touch. Absent : cyanosis, clubbing, edema, pulses intact (left pedal pulses are strong left foot is slightly cold . Normal capillary refill.Right pedal pulses are palpable but weak and decreased 0 -1+ at the foot exhibits program with a sluggish capillary refill as long as 10 seconds and the great and second toes greater than and the ball of the foot), normal capillary refill, calf tenderness, palpable cord, Kim's sign, amputation - Routine Skin Exam Present: dry. Absent: cyanosis, erythema - Routine Neurological Exam Present: alert, oriented X3, CN II-XII intact, motor deficit (left-sided hemiparesis with flaccid left upper extremity and 3 over 5 strength in the left lower extremity), hemineglect, facial asymmetry (left-sided facial droop), normal speech (slow). Absent: moving all extremities, normal tone - Routine Psychiatric Exam Present: cooperative. Absent: normal affect (flat) Results 03/04/17 05:35 03/04/17 05:35 Cardiac Enzymes 03/04/17 Range/Units 05:35 AST 35 (14-36) U/L CBC 03/04/17 Range/Units 05:35 WBC 7.9 (4.5-11.0) T/MM3 RBC 3.65 L (4.00-5.20) M/MM3 Hgb 10.8 L (12-16) GM/DL Hct 33.8 L (36-46) % Plt Count 297 (130-400) T/MM3 Neut # 5.1 (1.8-7.7) T/MM3 Lymph # 1.9 (1-4.8) T/MM3 [place] # 0.6 (0-0.8) T/MM3 Eos # 0.2 (0-0.5) T/MM3 Baso # 0.0 (0-0.2) T/MM3 Comprehensive Metabolic Panel 03/04/17 Range/Units 05:35 Sodium 140 (134-144) MEQ/L Potassium 4.3 (3.6-5) MEQ/L Chloride 99 (98-107) MEQ/L Carbon Dioxide 29 (22-30) MEQ/L BUN 24.0 H (7-17) MG/DL Creatinine 0.9 (0.7-1.2) MG/DL Glucose 105 (65-110) MG/DL Calcium 9.6 (8.4-10.2) MG/DL AST 35 (14-36) U/L ALT 45 (9-52) U/L Alkaline Phosphatase 86 (38-126) U/L Total Protein 6.3 (6.3-8.2) G/DL Albumin 3.5 (3.5-5.0) G/DL Intake and Output 03/03/17 03/04/17 03/04/17 22:59 06:59 14:59 Intake Total 100 / 100 Balance 100 / 100 Intake: Oral 100 / 100 Other: # Voids 2 2 # Incontinent Voids 1 1 # Bowel Movements 1 1 Data including EKG imaging and Labs as of 03/02/2017. 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 Followed closely by side Doppler. I do suspect an embolic phenomenon placed patient on telemetry briefly did due to reported irregular pulse by RN and that showed atrial fibrillation confirmed on 12-lead EKG. Discussed on Thursday with hospitalist service regarding anticoagulation management. They will contact and neurology meter and service line inspector service at [facility] to discuss. It is occluded and indication for full anticoagulation given patient's atrial fibrillation and an embolic phenomena timing for primary team/neurology meter and service line inspector , communication as above that is due to recent hemorrhagic transformation of ischemic stroke, requiring a 2 to 4 weeks pertiod Of avoiding systemic anticoagulation. dual Antiplatelet therapy and low-dose Lovenox. Constitutes a reasonable treatment at this time Echocardiogram was ordered and reviewed patient will need a transesophageal echocardiogram for more accurate assessment of for cardiac source of embolus I discussed indication alternatives risks and benefits with the patient her and they give consent. Also ordered abdominal aorta ultrasound Doppler was ordered to rule out an aneurysm as a source of embolus. Continue close monitoring with the neurovascular exam of the feet and to monitor for limb threatening ischemia , then transferred to [facility] with capacity for her vascular surgeon may become warranted , as discussed with hospitalist service thank you (2) Atrial fibrillation Current visit: Yes Status: Chronic (3) Ischemia of right lower extremity Current visit: Yes Status: Acute (4) Parenchymal hemorrhage Current visit: Yes Status: Acute (5) Stroke Current visit: Yes Status: Acute (6) Depression Current visit: Yes Status: Chronic (7) Diabetes mellitus Current visit: Yes Status: Chronic (8) Hypertension Current visit: Yes Status: Chronic (9) Dysphagia as late effect of stroke Current visit: Yes Status: Acute Hospital Course Summary Disclaimer: The visit summary below is not to be considered part of the above Progress Note. Hospital Course: 02/28/17 15:51 A/P: Redness/bluish toes with mild swelling of mid-foot -Likely blue toe syndrome -Pedal pulses present but decreased, motor/sensory function intact in LE, minimal pain -Doppler arterial/venous negative for occlusion calf arteries -Likely small vessel occlusion with emboli -Doppler did show decreased flow through calf arteries and diffuse atherosclerosis disease -Will plan on MAY and cardio consult for possible intervention -Medical management-->On statin and ASA 03/01/17 13:11 *Ischemic stroke with complete right ICA occlusion extending into MCA with clot extraction/tPA Continue ASA, Statin. Not much recovery post procedure. Continue PT/OT/ST per Rehab team. *Small IPH, hemorrhagic transformation- Hold Warfarin until 03/11. If worsening mental status or CHAMBERLAIN does not improve, need to repeat CT head. Last CT 02/12. No MRI due to PPM *AFib- Rate control. No warfarin as above. *Right acute LE microvascular ischemia- Nurses instructed on neurovascular exam with dopplers Q 2 hours for now. D/W Dr. Pierre and with Dr. Dotson at [facility]. No warfarin or thinners recommended. Ok to start Plavix and ASA. Will decreased ASA to 81mg Q day given bleeding risk. Continue to monitor closely. *HTN- BP well controlled. Avoid excessive lowering to maintain perfusion. *DM2- BG is well controlled on metformin, she is on 3units of long acting insulin BID. Will stop the insulin, continue 1000mg AM metformin, add 500mg PM metformin. Monitor renal function given age- currently normal. *DVT px- will restart px. dose LMWH that was continued on transfer to prevent DVT. Avoid SCDs given concern for ischemia 03/02/17 12:26 Ischemic stroke with hemorrhagic transformation; suspect ongoing microemboli -ASA, Plavix, statin -resume Coumadin 03/11 -PT/OT Left arm swelling, erythema -radial pulses intact -monitor for now DM2 -Insulin was dc'd and metformin increased on 03/01 -BGM 220 after breakfast today -cont to monitor Sepsis Assessment - Evaluation Sepsis screening result: No Definite Risk
[2017-03-04] MEDS ORDERED: FALL RISK - PHARMACY CONSULT MC PRN (12:30)
--- NOTE | 2017-03-04 12:33 | Cardiology Progress Note ---
Subjective Interval history: DOS 03/03/2017 late entry Mrs. Wills complains of mild left leg pain. is at the bedside, Ting that her only the right foot now is cold the right foot has warmed up she denies chest pain pressure or dyspnea and dizziness she's still having some numbness and tingling in the right foot. She has been ordered with physical therapy likely including standing and light exercise Vital signs and labs prior date of service were reviewed .patient is not on telemetry. Abdominal aorta Doppler did not reveal any aneurysm And atherosclerotic plaque. Echocardiogram showed 2+ mitral regurgitation mild aortic stenosis normal LV function no demonstrable clots or vegetation patient is in underlying atrial fibrillation. He's also discussed the patient and he is at the bedside appears quite supportive and they gave consent to proceed with a GUILLERMO tomorrow so cancel nothing by mouth this morning Exam Vital signs: Temp Pulse Resp BP Pulse Ox 98.3 F 65 13 103/53 95 03/04/17 12:19 03/04/17 12:19 03/04/17 12:19 03/04/17 12:19 03/04/17 12:19 - Constitutional no acute distress, thin, cooperative - Routine HEENT Exam Head: Present: normocephalic, atraumatic ENT: Present: mucous membranes moist - Routine Neck Exam Present: normal carotid upstroke. Absent: JVD, carotid bruit, lymphadenopathy - Routine Chest/Breast/Axilla Exam Chest wall: Present: pacemaker. Absent: tenderness - Routine Respiratory Exam Present: CTA bilaterally. Absent: dyspnea, respiratory distress - Routine Cardiovascular Exam Present: RRR, murmur (2/6 systolic). Absent: JVD - Routine Abdominal Exam Present: soft, normoactive bowel sounds, non distended, non tender - Routine Extremities Exam Absent: cyanosis, clubbing, edema, normal capillary refill (sluggish refill in the first 2 toes on the right foot is cold , pedal pulses are weak but palpable certainly dopplerable no ulcers , motor function preserved the left foot is warm ) - Routine Skin Exam Present: erythema, dry (rubrom), pallor. Absent: cyanosis, petechiae - Routine Neurological Exam Present: alert, oriented X3, CN II-XII intact (except for a left facial droop), facial asymmetry - Routine Psychiatric Exam Present: cooperative, depressed. Absent: normal affect (flat), anxious Hospital Course Hospital course: 02/28/17 15:51 A/P: Redness/bluish toes with mild swelling of mid-foot -Likely blue toe syndrome -Pedal pulses present but decreased, motor/sensory function intact in LE, minimal pain -Doppler arterial/venous negative for occlusion calf arteries -Likely small vessel occlusion with emboli -Doppler did show decreased flow through calf arteries and diffuse atherosclerosis disease -Will plan on MAY and cardio consult for possible intervention -Medical management-->On statin and ASA 03/01/17 13:11 *Ischemic stroke with complete right ICA occlusion extending into MCA with clot extraction/tPA Continue ASA, Statin. Not much recovery post procedure. Continue PT/OT/ST per Rehab team. *Small IPH, hemorrhagic transformation- Hold Warfarin until 03/11. If worsening mental status or CHAMBERLAIN does not improve, need to repeat CT head. Last CT 02/12. No MRI due to PPM *AFib- Rate control. No warfarin as above. *Right acute LE microvascular ischemia- Nurses instructed on neurovascular exam with dopplers Q 2 hours for now. D/W Dr. Pierre and with Dr. Dotson at [facility]. No warfarin or thinners recommended. Ok to start Plavix and ASA. Will decreased ASA to 81mg Q day given bleeding risk. Continue to monitor closely. *HTN- BP well controlled. Avoid excessive lowering to maintain perfusion. *DM2- BG is well controlled on metformin, she is on 3units of long acting insulin BID. Will stop the insulin, continue 1000mg AM metformin, add 500mg PM metformin. Monitor renal function given age- currently normal. *DVT px- will restart px. dose LMWH that was continued on transfer to prevent DVT. 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 Myrick . I have recommended systemic anticoagulation. Due to consultation within neuro reverberatory skimmer service at [facility] they recommended simply continued dual antiplatelet therapy completing 4 weeks before anticoagulation can be started. The rationale is a hemorrhagic transformation of the large ischemic stroke on February 11. Patient is currently on low-dose Lovenox .We'll pursue the GUILLERMO tomorrow .ultrasound and was unavailable today. Nothing by mouth after midnight for GUILLERMO no meds discussed with RN Current Visit: Yes (2) Atrial fibrillation Status: Chronic Current Visit: Yes (3) Ischemia of right lower extremity Status: Acute Current Visit: Yes (4) Parenchymal hemorrhage Status: Acute Current Visit: Yes (5) Stroke Status: Acute Current Visit: Yes (6) Depression Status: Chronic Current Visit: Yes (7) Diabetes mellitus Status: Chronic Current Visit: Yes (8) Hypertension Status: Chronic Current Visit: Yes (9) Dysphagia as late effect of stroke Status: Acute Current Visit: Yes - Time Spent With Patient Total time spent is greater than 50% in coordination of care (as documented) at patient's floor/unit and/or counseling patient: 25 - 35 minutes Sepsis Assessment - Evaluation Sepsis screening result: No Definite Risk
--- NOTE | 2017-03-04 12:51 | Cardiology Progress Note ---
Subjective Interval history: Keeley has no complaints today denies leg pain. Still having some numbness in the big toe. She has been up on it with physical therapy she even walk 2 steps holding on to the rail and the PT room she denies chest pain and dyspnea palpitations or dizziness appears to be speaking more and even more clearly today appears in better spirits Exam Vital signs: Temp Pulse Resp BP Pulse Ox 98.3 F 65 13 103/53 95 03/04/17 12:19 03/04/17 12:19 03/04/17 12:19 03/04/17 12:19 03/04/17 12:19 - Constitutional no acute distress, well developed, thin, cooperative - Routine HEENT Exam Head: Present: normocephalic, atraumatic Eye: Present: EOMI, PERRL ENT: Present: mucous membranes moist - Routine Neck Exam Present: JVD (mild), normal carotid upstroke. Absent: carotid bruit, lymphadenopathy, thyromegaly - Routine Chest/Breast/Axilla Exam Chest wall: Present: pacemaker - Routine Respiratory Exam Present: CTA bilaterally - Routine Cardiovascular Exam Present: RRR, S1, S2, murmur (2/6 systolic) - Routine Abdominal Exam Present: soft, normoactive bowel sounds, non distended. Absent: tenderness, organomegaly - Routine Extremities Exam Absent: cyanosis, clubbing, edema - Routine Skin Exam Present: erythema (improved in the toes much less dusky still relatively called normal motor function with both dorsiflexion and and extension) - Routine Neurological Exam Present: oriented X3, CN II-XII intact (except for a left facial droop which is unchanged), motor deficit (left hemiparesis), facial asymmetry, normal speech - Routine Psychiatric Exam Present: normal affect (flat) Hospital Course Hospital course: 02/28/17 15:51 A/P: Redness/bluish toes with mild swelling of mid-foot -Likely blue toe syndrome -Pedal pulses present but decreased, motor/sensory function intact in LE, minimal pain -Doppler arterial/venous negative for occlusion calf arteries -Likely small vessel occlusion with emboli -Doppler did show decreased flow through calf arteries and diffuse atherosclerosis disease -Will plan on MAY and cardio consult for possible intervention -Medical management-->On statin and ASA 03/01/17 13:11 *Ischemic stroke with complete right ICA occlusion extending into MCA with clot extraction/tPA Continue ASA, Statin. Not much recovery post procedure. Continue PT/OT/ST per Rehab team. *Small IPH, hemorrhagic transformation- Hold Warfarin until 03/11. If worsening mental status or CHAMBERLAIN does not improve, need to repeat CT head. Last CT 02/12. No MRI due to PPM *AFib- Rate control. No warfarin as above. *Right acute LE microvascular ischemia- Nurses instructed on neurovascular exam with dopplers Q 2 hours for now. D/W Dr. Pierre and with Dr. Dotson at [facility]. No warfarin or thinners recommended. Ok to start Plavix and ASA. Will decreased ASA to 81mg Q day given bleeding risk. Continue to monitor closely. *HTN- BP well controlled. Avoid excessive lowering to maintain perfusion. *DM2- BG is well controlled on metformin, she is on 3units of long acting insulin BID. Will stop the insulin, continue 1000mg AM metformin, add 500mg PM metformin. Monitor renal function given age- currently normal. *DVT px- will restart px. dose LMWH that was continued on transfer to prevent DVT. 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 I do recommend starting full anticoagulation soon I would favor a NOAC over Coumadin due to subtherapeutic INR. Admission suggestive of fluctuation of INR versus noncompliance. Of course the timing and type ANTICOAGULAnt per hospitalist and no float tender care service. Would discontinue aspirin and Plavix at that time and discontinue Lovenox when therapeutic on oral anticoagulant. Due to patient' s foot ischemia and normal LV function going to discontinue beta blockers underwent also discontinue amlodipine and simply started on Cardizem CD 180 mg daily to treat A. fib rate control and permissive treatment of hypertension6 in light of recent ischemic stroke. Due to starting diltiazem with interaction with simvastatin, going to lower dose of the latter to 10 mg daily I may see the patient tomorrow when necessary after that I'm going out of town on a 10 day vacation have a cardiology coverage and [place] for emergencies. 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 Current Visit: Yes (2) Atrial fibrillation Status: Chronic Current Visit: Yes (3) Ischemia of right lower extremity Status: Acute Current Visit: Yes (4) Parenchymal hemorrhage Status: Acute Current Visit: Yes (5) Stroke Status: Acute Current Visit: Yes (6) Depression Status: Chronic Current Visit: Yes (7) Diabetes mellitus Status: Chronic Current Visit: Yes (8) Hypertension Status: Chronic Current Visit: Yes (9) Dysphagia as late effect of stroke Status: Acute Current Visit: Yes - Time Spent With Patient Total time spent is greater than 50% in coordination of care (as documented) at patient's floor/unit and/or counseling patient: 25 - 35 minutes Sepsis Assessment - Evaluation Sepsis screening result: No Definite Risk
--- NOTE | 2017-03-04 13:54 | Progress Note ---
Subjective: Taisha is seen today in follow up while working with OT. She is alert and pleasant. Noted ongoing erythema to right foot which is thought to be related to microemboli. Taisha does not feel that erythema has worsened over the past few days. Continues to have left arm weakness related to recent CVA. Denies having chest pain, shortness of breath or other symptoms. BP 126/59. Objective Vital signs: Temp Pulse Resp BP Pulse Ox 98.5 F 70 12 126/59 94 03/04/17 13:15 03/04/17 13:15 03/04/17 13:15 03/04/17 13:15 03/04/17 13:15 Weight: 67.7 kg - Constitutional Present: no acute distress, well developed, thin, cooperative - Routine HEENT Exam Eye: Present: EOMI, PERRL - Routine Respiratory Exam Present: CTA bilaterally - Routine Cardiovascular Exam Present: RRR, S1, S2, no murmur - Routine Abdominal Exam Present: soft, normoactive bowel sounds - Routine Extremities Exam Present: extremity cold to touch Comments: Right toes appear dusky and are cool to touch. Weak pedial pulse with diminished cap refill >5 seconds - Routine Back/Spine/Pelvis Exam Back/Spine: Present: full ROM - Routine Skin Exam Present: intact Comments: Right toes appear dusky and are cool to touch. Weak pedial pulse with diminished cap refill >5 seconds Left pedal pulse strong with normal cap refull - Routine Neurological Exam Present: alert, oriented X3, motor deficit (Left arm) - Routine Psychiatric Exam Present: normal affect, normal thought process Results - Labs CBC & Chem 7: 03/04/17 05:35 03/04/17 05:35 Assessment and Plan (1) Stroke Current visit: Yes Status: Acute ischemic, s/p clot retrieval; small hemorrhagic conversion right MCA distribution (2) Diabetes mellitus Current visit: Yes Status: Chronic (3) Atrial fibrillation Current visit: Yes Status: Chronic (4) Hypertension Current visit: Yes Status: Chronic (5) Myopathy Current visit: Yes Status: Acute (6) Left hemiparesis Current visit: Yes Status: Acute due to CVA, +left sided neglect (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 Recommend no Warfarin. Ok to start Plavix with ASA. Assessment and Plan: 03/04/17 Ischemic stroke with hemorrhagic transformation; suspect ongoing microemboli ASA, Plavix, statin, may resume Coumadin 03/11. Continues on Lovenox for DVT prophylaxis Scheduled for GUILLERMO today with Dr Aguero for further cardiac evaluation Continues on cardizem and Digoxin In today to monitor blood sugars. Currently on metformin as well as sliding scale insulin Care discussed with attending, Dr Pierre Sepsis Assessment - Evaluation Sepsis screening result: No Definite Risk Hospital Course Summary Disclaimer: The visit summary below is not to be considered part of the above Progress Note. Hospital Course: 02/28/17 15:51 A/P: Redness/bluish toes with mild swelling of mid-foot -Likely blue toe syndrome -Pedal pulses present but decreased, motor/sensory function intact in LE, minimal pain -Doppler arterial/venous negative for occlusion calf arteries -Likely small vessel occlusion with emboli -Doppler did show decreased flow through calf arteries and diffuse atherosclerosis disease -Will plan on MAY and cardio consult for possible intervention -Medical management-->On statin and ASA 03/01/17 13:11 *Ischemic stroke with complete right ICA occlusion extending into MCA with clot extraction/tPA Continue ASA, Statin. Not much recovery post procedure. Continue PT/OT/ST per Rehab team. *Small IPH, hemorrhagic transformation- Hold Warfarin until 03/11. If worsening mental status or CHAMBERLAIN does not improve, need to repeat CT head. Last CT 02/12. No MRI due to PPM *AFib- Rate control. No warfarin as above. *Right acute LE microvascular ischemia- Nurses instructed on neurovascular exam with dopplers Q 2 hours for now. D/W Dr. Pierre and with Dr. Dotson at [facility]. No warfarin or thinners recommended. Ok to start Plavix and ASA. Will decreased ASA to 81mg Q day given bleeding risk. Continue to monitor closely. *HTN- BP well controlled. Avoid excessive lowering to maintain perfusion. *DM2- BG is well controlled on metformin, she is on 3units of long acting insulin BID. Will stop the insulin, continue 1000mg AM metformin, add 500mg PM metformin. Monitor renal function given age- currently normal. *DVT px- will restart px. dose LMWH that was continued on transfer to prevent DVT. Avoid SCDs given concern for ischemia 03/02/17 12:26 Ischemic stroke with hemorrhagic transformation; suspect ongoing microemboli -ASA, Plavix, statin -resume Coumadin 03/11 -PT/OT Left arm swelling, erythema -radial pulses intact -monitor for now DM2 -Insulin was dc'd and metformin increased on 03/01 -BGM 220 after breakfast today -cont to monitor
[2017-03-04] MEDS: RAMIPRIL 5 MG CAPSULE PO SCH (15:04)
[2017-03-04] MEDS: ASPIRIN 81 MG CHEWABLE TABLET PO SCH (15:05)
[2017-03-04] MEDS: METFORMIN 1,000 MG TABLET PO SCH (15:06)
[2017-03-04] MEDS: CITALOPRAM 20 MG TABLET PO SCH (15:06)
[2017-03-04] MEDS: DIGOXIN 125 MCG TABLET PO SCH (15:07)
[2017-03-04] MEDS: DOCUSATE SODIUM 100 MG CAPSULE PO SCH ×2 (15:07→20:57)
[2017-03-04] MEDS: ENOXAPARIN 40 MG/0.4 ML INJECTION SQ SCH (15:08)
[2017-03-04] MEDS: CLOPIDOGREL 75 MG TABLET PO SCH (15:08)
[2017-03-04] MEDS: LUTEIN 20 MG CAPSULE PO SCH (15:08)
[2017-03-04] MEDS: VITAMIN B COMPLEX + C TABLET PO SCH (15:08)
[2017-03-04] MEDS: METFORMIN 500 MG TABLET PO SCH (17:46)
[2017-03-04] MEDS: MELATONIN 5 MG TABLET PO PRN (20:57)
[2017-03-04] MEDS: SIMVASTATIN 10 MG TABLET PO SCH ×2 (20:58→22:55)
[2017-03-05] MEDS: METFORMIN 1,000 MG TABLET PO SCH (09:05)
[2017-03-05] MEDS: CITALOPRAM 20 MG TABLET PO SCH (09:06)
[2017-03-05] MEDS: LUTEIN 20 MG CAPSULE PO SCH (09:06)
[2017-03-05] MEDS: ENOXAPARIN 40 MG/0.4 ML INJECTION SQ SCH (09:06)
[2017-03-05] MEDS: DOCUSATE SODIUM 100 MG CAPSULE PO SCH ×2 (09:06→23:47)
[2017-03-05] MEDS: RAMIPRIL 5 MG CAPSULE PO SCH (09:06)
[2017-03-05] MEDS: DIGOXIN 125 MCG TABLET PO SCH (09:07)
[2017-03-05] MEDS: VITAMIN B COMPLEX + C TABLET PO SCH (09:07)
[2017-03-05] MEDS: CLOPIDOGREL 75 MG TABLET PO SCH (09:08)
[2017-03-05] MEDS: ASPIRIN 81 MG CHEWABLE TABLET PO SCH (09:10)
[2017-03-05] MEDS: ACETAMINOPHEN 325 MG TABLET PO PRN (10:15)
[2017-03-05] MEDS: INSULIN ASPART 100unit/ml INJECTION SQ PRN (10:22)
[2017-03-05] MEDS: METFORMIN 500 MG TABLET PO SCH (17:24)
[2017-03-05] MEDS: SIMVASTATIN 10 MG TABLET PO SCH (23:46)
[2017-03-06] MEDS: METFORMIN 1,000 MG TABLET PO SCH (08:29)
[2017-03-06] MEDS: RAMIPRIL 5 MG CAPSULE PO SCH (08:30)
[2017-03-06] MEDS: VITAMIN B COMPLEX + C TABLET PO SCH (08:30)
[2017-03-06] MEDS: DOCUSATE SODIUM 100 MG CAPSULE PO SCH ×2 (08:30→20:45)
[2017-03-06] MEDS: LUTEIN 20 MG CAPSULE PO SCH (08:30)
[2017-03-06] MEDS: DIGOXIN 125 MCG TABLET PO SCH (08:30)
[2017-03-06] MEDS: CITALOPRAM 20 MG TABLET PO SCH (08:30)
[2017-03-06] MEDS: CLOPIDOGREL 75 MG TABLET PO SCH (08:30)
[2017-03-06] MEDS: ENOXAPARIN 40 MG/0.4 ML INJECTION SQ SCH (08:33)
[2017-03-06] MEDS: ASPIRIN 81 MG CHEWABLE TABLET PO SCH (08:35)
--- NOTE | 2017-03-06 08:36 | Transesophageal Echocardiogram ---
DATE 03/04/2017 INDICATION Atrial fibrillation, peripheral emboli, assess for cardiac source of embolus. PREMEDICATION IV Versed and Fentanyl. Please refer to the nursing notes for the exact amounts given, in addition Cetacaine spray to the oropharynx. PROCEDURE After indications , alternatives, risks and benefits of the procedure were fully discussed with the patient in detail, she agreed to proceed. Patient was in the Rehab outpatient unit, was placed on telemetry and continuous oximetry. I advanced the Omniprobe to the stomach. Transgastric lower and mid transesophageal images of good quality were obtained. Procedure was well tolerated. There were no immediate complications. FINDINGS 1. CARDIAC CHAMBERS. Left atrium is mildly enlarged. Left atrial appendage appears particularly dilated with sluggish poor flow evident on Doppler. There is moderately heavy spontaneous echo contrast "smoke sign" present. No demonstrable clot upon close examination. 2. Intraatrial septum appears intact. No evidence of shunt on color flow Doppler and bubble study. 3. LV FUNCTION. Wall thickness is normal. Wall motion analysis is normal. Systolic function is normal. EF of 60%. 4. VALVES. Aortic valve is trileaflet, exhibits mild sclerosis. Slightly restricted aortic valve opening suggestive of very mild aortic stenosis. Mitral valve leaflets appear sclerotic, normal valve excursion. Tricuspid valve structure and motion appear normal, normal valve excursion. Several pacemaker leads are seen in the right heart and appear unremarkable. 4. DOPPLER. Doppler shows mild to moderate mitral regurgitation, moderate tricuspid regurgitation with pulmonary hypertension, systolic PA pressure is estimated at 46 mmHg. 5. No evidence of pericardial effusion, intracardiac masses or demonstrable shunts. IMPRESSION 1. Mild left atrial enlargement. 2. Dilated left atrial appendage with sluggish flow and moderately heavy smoke sign indicative of clumps of RBCs. 3. Mild to moderate mitral regurgitation. 4. Moderate tricuspid regurgitation. 5. Normal LV size and systolic function. 6. Pacemaker leads are seen in the right heart and appear to be unremarkable, without any vegetation present. 7. Patient is in underlying atrial fibrillation with ventricular paced rhythm. 8. Visualized portion of the thoracic aorta exhibits scattered atherosclerotic plaque, calcific. No atheromas, aneurysm or dissection flap. RECOMMENDATION See note. DEQUAN
[2017-03-06] MEDS: INSULIN ASPART 100unit/ml INJECTION SQ PRN (12:07)
--- NOTE | 2017-03-06 15:16 | Progress Note ---
Subjective: Taisha is seen this afternoon in follow up. She is resting in bed napping. When asked if she is having any pain or feeling short of breath. She states no. She is comfortably breathing on room air and does not have any distress. She continues to have coolness to the right lower extremity. Pedal pulses continue to be present. However, right foot. Capillary refill is delayed over 5 seconds. Erythema to the right foot appears to be improved today. Blood Sugars have been well controlled. Objective Vital signs: Temp Pulse Resp BP Pulse Ox 98.5 F 66 16 132/65 94 03/06/17 08:00 03/06/17 08:30 03/06/17 08:00 03/06/17 08:00 03/06/17 08:00 Weight: 70.8 kg - Constitutional Present: no acute distress, well developed, thin, cooperative - Routine HEENT Exam Head: Present: normocephalic Eye: Present: EOMI, PERRL - Routine Respiratory Exam Present: CTA bilaterally - Routine Cardiovascular Exam Present: RRR, S1, S2, no murmur - Routine Abdominal Exam Present: soft, normoactive bowel sounds - Routine Extremities Exam Present: extremity cold to touch (RLE) Comments: RLE doppler pulse intact. Cap refull >5 secs - Routine Back/Spine/Pelvis Exam Back/Spine: Present: full ROM - Routine Neurological Exam Present: alert, oriented X3, CN II-XII intact Results - Labs CBC & Chem 7: 03/04/17 05:35 03/04/17 05:35 Assessment and Plan (1) Stroke Current visit: Yes Status: Acute ischemic, s/p clot retrieval; small hemorrhagic conversion right MCA distribution (2) Diabetes mellitus Current visit: Yes Status: Chronic (3) Atrial fibrillation Current visit: Yes Status: Chronic (4) Hypertension Current visit: Yes Status: Chronic (5) Myopathy Current visit: Yes Status: Acute (6) Left hemiparesis Current visit: Yes Status: Acute due to CVA, +left sided neglect (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 Current visit: Yes Status: Acute (8) Depression Current visit: Yes Status: Chronic (9) Head ache Current visit: Yes Status: Acute (10) Hypernatremia Current visit: Yes Status: Acute (11) Parenchymal hemorrhage Current visit: Yes Status: Acute 03/01/17 13:02 Hold Warfarin until 6/28 (12) Ischemia of right lower extremity Current visit: Yes Status: Acute 03/01/17 13:01 D/W [facility] Dotsno (-[facility])- Recommend no Warfarin. Ok to start Plavix with ASA. Assessment and Plan: 03/06/17 Ischemic stroke with hemorrhagic transformation; suspect ongoing microemboli ASA, Plavix, statin, may resume Coumadin 03/11. Continues on Lovenox for DVT prophylaxis Continue to monitor blood sugars. Continue with Metformin. Continue on Cardizem and Digoxin. GUILLERMO was performed on 03/04 under the care of Dr. Aguero. 1. Mild left atrial enlargement. 2. Dilated left atrial appendage with sluggish flow and moderately heavy smoke sign indicative of clumps of RBCs. 3. Mild to moderate mitral regurgitation. 4. Moderate tricuspid regurgitation. 5. Normal LV size and systolic function. 6. Pacemaker leads are seen in the right heart and appear to be unremarkable, without any vegetation present. 7. Patient is in underlying atrial fibrillation with ventricular paced rhythm. 8. Visualized portion of the thoracic aorta exhibits scattered atherosclerotic plaque, calcific. In today to encourage work with PT and OT for ongoing strengthening Sepsis Assessment - Evaluation Sepsis screening result: No Definite Risk Hospital Course Summary Disclaimer: The visit summary below is not to be considered part of the above Progress Note. Hospital Course: 02/28/17 15:51 A/P: Redness/bluish toes with mild swelling of mid-foot -Likely blue toe syndrome -Pedal pulses present but decreased, motor/sensory function intact in LE, minimal pain -Doppler arterial/venous negative for occlusion calf arteries -Likely small vessel occlusion with emboli -Doppler did show decreased flow through calf arteries and diffuse atherosclerosis disease -Will plan on MAY and cardio consult for possible intervention -Medical management-->On statin and ASA 03/01/17 13:11 *Ischemic stroke with complete right ICA occlusion extending into MCA with clot extraction/tPA Continue ASA, Statin. Not much recovery post procedure. Continue PT/OT/ST per Rehab team. *Small IPH, hemorrhagic transformation- Hold Warfarin until 03/11. If worsening mental status or CHAMBERLAIN does not improve, need to repeat CT head. Last CT 02/12. No MRI due to PPM *AFib- Rate control. No warfarin as above. *Right acute LE microvascular ischemia- Nurses instructed on neurovascular exam with dopplers Q 2 hours for now. D/W Dr. Pierre and with Dr[facility] Dotson at [facility]. No warfarin or thinners recommended. Ok to start Plavix and ASA. Will decreased ASA to 81mg Q day given bleeding risk. Continue to monitor closely. *HTN- BP well controlled. Avoid excessive lowering to maintain perfusion. *DM2- BG is well controlled on metformin, she is on 3units of long acting insulin BID. Will stop the insulin, continue 1000mg AM metformin, add 500mg PM metformin. Monitor renal function given age- currently normal. *DVT px- will restart px. dose LMWH that was continued on transfer to prevent DVT. Avoid SCDs given concern for ischemia 03/02/17 12:26 Ischemic stroke with hemorrhagic transformation; suspect ongoing microemboli -ASA, Plavix, statin -resume Coumadin 03/11 -PT/OT Left arm swelling, erythema -radial pulses intact -monitor for now DM2 -Insulin was dc'd and metformin increased on 03/01 -BGM 220 after breakfast today -cont to monitor
[2017-03-06] MEDS: METFORMIN 500 MG TABLET PO SCH (17:22)
[2017-03-06] MEDS: SIMVASTATIN 10 MG TABLET PO SCH (20:45)
[2017-03-07] MEDS: SIMVASTATIN 10 MG TABLET PO SCH ×2 (03:35→20:35)
[2017-03-07] MEDS: CLOPIDOGREL 75 MG TABLET PO SCH (08:21)
[2017-03-07] MEDS: VITAMIN B COMPLEX + C TABLET PO SCH (08:21)
[2017-03-07] MEDS: METFORMIN 1,000 MG TABLET PO SCH (08:21)
[2017-03-07] MEDS: CITALOPRAM 20 MG TABLET PO SCH (08:21)
[2017-03-07] MEDS: RAMIPRIL 5 MG CAPSULE PO SCH (08:21)
[2017-03-07] MEDS: DIGOXIN 125 MCG TABLET PO SCH (08:22)
[2017-03-07] MEDS: ENOXAPARIN 40 MG/0.4 ML INJECTION SQ SCH (08:22)
[2017-03-07] MEDS: LUTEIN 20 MG CAPSULE PO SCH (08:22)
[2017-03-07] MEDS: DOCUSATE SODIUM 100 MG CAPSULE PO SCH ×2 (08:22→20:35)
[2017-03-07] MEDS: ASPIRIN 81 MG CHEWABLE TABLET PO SCH (08:24)
[2017-03-07] MEDS: METFORMIN 500 MG TABLET PO SCH (17:19)
[2017-03-07] MEDS: MELATONIN 5 MG TABLET PO PRN (20:35)
[2017-03-07] MEDS: ACETAMINOPHEN 325 MG TABLET PO PRN (20:35)
[2017-03-08] MEDS: SIMVASTATIN 10 MG TABLET PO SCH ×2 (02:43→21:55)
[2017-03-08] MEDS: METFORMIN 1,000 MG TABLET PO SCH (08:57)
[2017-03-08] MEDS: ASPIRIN 81 MG CHEWABLE TABLET PO SCH (08:58)
[2017-03-08] MEDS: CITALOPRAM 20 MG TABLET PO SCH (08:58)
[2017-03-08] MEDS: RAMIPRIL 5 MG CAPSULE PO SCH (08:59)
[2017-03-08] MEDS: DIGOXIN 125 MCG TABLET PO SCH (09:00)
[2017-03-08] MEDS: ENOXAPARIN 40 MG/0.4 ML INJECTION SQ SCH (09:00)
[2017-03-08] MEDS: LUTEIN 20 MG CAPSULE PO SCH (09:01)
[2017-03-08] MEDS: VITAMIN B COMPLEX + C TABLET PO SCH (09:01)
[2017-03-08] MEDS: CLOPIDOGREL 75 MG TABLET PO SCH (09:01)
[2017-03-08] MEDS: DOCUSATE SODIUM 100 MG CAPSULE PO SCH ×2 (09:02→20:31)
[2017-03-08] MEDS ORDERED: FALL RISK - PHARMACY CONSULT XX PRN (11:05)
[2017-03-08] MEDS: METFORMIN 500 MG TABLET PO SCH (17:18)
[2017-03-08] MEDS: ACETAMINOPHEN 325 MG TABLET PO PRN (21:54)
[2017-03-08] MEDS: MELATONIN 5 MG TABLET PO PRN (21:54)
[2017-03-09] MEDS: ASPIRIN 81 MG CHEWABLE TABLET PO SCH (08:38)
[2017-03-09] MEDS: ACETAMINOPHEN 325 MG TABLET PO PRN ×2 (08:38→21:49)
[2017-03-09] MEDS: CITALOPRAM 20 MG TABLET PO SCH (08:39)
[2017-03-09] MEDS: VITAMIN B COMPLEX + C TABLET PO SCH (08:39)
[2017-03-09] MEDS: DOCUSATE SODIUM 100 MG CAPSULE PO SCH ×2 (08:39→21:50)
[2017-03-09] MEDS: METFORMIN 1,000 MG TABLET PO SCH (08:39)
[2017-03-09] MEDS: ENOXAPARIN 40 MG/0.4 ML INJECTION SQ SCH (08:39)
[2017-03-09] MEDS: CLOPIDOGREL 75 MG TABLET PO SCH (08:39)
[2017-03-09] MEDS: LUTEIN 20 MG CAPSULE PO SCH (08:39)
[2017-03-09] MEDS: DIGOXIN 125 MCG TABLET PO SCH (08:39)
[2017-03-09] MEDS: RAMIPRIL 5 MG CAPSULE PO SCH (08:39)
[2017-03-09] MEDS: SALINE FLUSH 10ml SYRINGE IV PRN (08:44)
[2017-03-09] MEDS: ONDANSETRON ODT 4 MG TABLET PO PRN (08:46)
[2017-03-09] MEDS: INSULIN ASPART 100unit/ml INJECTION SQ PRN (10:51)
--- NOTE | 2017-03-09 14:57 | Progress Note ---
<Diana Tse V - Last Filed: 03/09/17 15:08> Subjective: Taisha is seen this morning for follow-up examination. She is sitting at the table, working with speech therapy. She complains of feeling nauseated and not having an appetite. She denies abdominal pain, shortness of breath or chest pain. Blood sugars have been well controlled, fasting sugar this morning was 100. She is voiding without difficulty and denies dysuria. Bowels have been moving regularly. Blood pressure this morning 126/62. Objective Vital signs: Temp Pulse Resp BP Pulse Ox 98.3 F 69 18 126/62 95 03/09/17 08:00 03/09/17 08:39 03/09/17 08:00 03/09/17 08:00 03/09/17 08:00 Weight: 70.8 kg - Constitutional Present: no acute distress, well developed, thin, cooperative - Routine HEENT Exam Head: Present: normocephalic Eye: Present: EOMI, PERRL - Routine Respiratory Exam Present: CTA bilaterally - Routine Cardiovascular Exam Present: RRR, S1, S2 - Routine Abdominal Exam Present: soft, normoactive bowel sounds - Routine Extremities Exam Present: full ROM, extremity cold to touch (chronic) Comments: Bilateral pedal pulse via doppler - Routine Back/Spine/Pelvis Exam Back/Spine: Present: full ROM - Routine Skin Exam Present: intact, warm - Routine Neurological Exam Present: alert, oriented X3, CN II-XII intact, moving all extremities - Routine Psychiatric Exam Present: normal affect Results - Labs CBC & Chem 7: 03/09/17 04:06 03/09/17 04:06 Assessment and Plan (1) Stroke Current visit: Yes Status: Acute ischemic, s/p clot retrieval; small hemorrhagic conversion right MCA distribution (2) Diabetes mellitus Current visit: Yes Status: Chronic (3) Atrial fibrillation Current visit: Yes Status: Chronic (4) Hypertension Current visit: Yes Status: Chronic (5) Myopathy Current visit: Yes Status: Acute (6) Left hemiparesis Current visit: Yes Status: Acute due to CVA, +left sided neglect (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 Dotson ([facility])- Recommend no Warfarin. Ok to start Plavix with ASA. Assessment and Plan: 03/06/17 Ischemic stroke with hemorrhagic transformation; suspect ongoing microemboli ASA, Plavix, statin, may resume Coumadin 03/11. Continues on Lovenox for DVT prophylaxis Continue to monitor blood sugars, fasting this morning was 100. Continue with Metformin. Continue on Cardizem and Digoxin for chronic A-fib. Did review this morning laboratory studies. Hemoglobin is stable at 10.1. Sodium remains normal at 138. Sepsis Assessment - Evaluation Sepsis screening result: No Definite Risk Hospital Course Summary Disclaimer: The visit summary below is not to be considered part of the above Progress Note. Hospital Course: 02/28/17 15:51 A/P: Redness/bluish toes with mild swelling of mid-foot -Likely blue toe syndrome -Pedal pulses present but decreased, motor/sensory function intact in LE, minimal pain -Doppler arterial/venous negative for occlusion calf arteries -Likely small vessel occlusion with emboli -Doppler did show decreased flow through calf arteries and diffuse atherosclerosis disease -Will plan on MAY and cardio consult for possible intervention -Medical management-->On statin and ASA 03/01/17 13:11 *Ischemic stroke with complete right ICA occlusion extending into MCA with clot extraction/tPA Continue ASA, Statin. Not much recovery post procedure. Continue PT/OT/ST per Rehab team. *Small IPH, hemorrhagic transformation- Hold Warfarin until 03/11. If worsening mental status or CHAMBERLAIN does not improve, need to repeat CT head. Last CT 02/12. No MRI due to PPM *AFib- Rate control. No warfarin as above. *Right acute LE microvascular ischemia- Nurses instructed on neurovascular exam with dopplers Q 2 hours for now. D/W Dr. Pierre and with Dr. Dotson at [facility]. No warfarin or thinners recommended. Ok to start Plavix and ASA. Will decreased ASA to 81mg Q day given bleeding risk. Continue to monitor closely. *HTN- BP well controlled. Avoid excessive lowering to maintain perfusion. *DM2- BG is well controlled on metformin, she is on 3units of long acting insulin BID. Will stop the insulin, continue 1000mg AM metformin, add 500mg PM metformin. Monitor renal function given age- currently normal. *DVT px- will restart px. dose LMWH that was continued on transfer to prevent DVT. Avoid SCDs given concern for ischemia 03/02/17 12:26 Ischemic stroke with hemorrhagic transformation; suspect ongoing microemboli -ASA, Plavix, statin -resume Coumadin 03/11 -PT/OT Left arm swelling, erythema -radial pulses intact -monitor for now DM2 -Insulin was dc'd and metformin increased on 03/01 -BGM 220 after breakfast today -cont to monitor <Heather Harmon - Last Filed: 03/09/17 19:08> Objective Vital signs: Temperature 97.7 F 03/09/17 16:00 Pulse Rate 69 03/09/17 16:00 Respiratory Rate 16 03/09/17 16:00 Blood Pressure 122/59 03/09/17 16:00 Pulse Oximetry 97 03/09/17 16:00 Oxygen Delivery Method Room Air Oxygen Flow Rate 1 Results - Labs CBC & Chem 7: 03/09/17 04:06 03/09/17 04:06 Assessment and Plan (1) Stroke Current visit: Yes Status: Acute (2) Diabetes mellitus Current visit: Yes Status: Chronic (3) Atrial fibrillation Current visit: Yes Status: Chronic (4) Hypertension Current visit: Yes Status: Chronic (5) Myopathy Current visit: Yes Status: Acute (6) Left hemiparesis Current visit: Yes Status: Acute (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 Current visit: Yes Status: Acute (8) Depression Current visit: Yes Status: Chronic (9) Head ache Current visit: Yes Status: Acute (10) Hypernatremia Current visit: Yes Status: Acute (11) Parenchymal hemorrhage Current visit: Yes Status: Acute (12) Ischemia of right lower extremity Current visit: Yes Status: Acute Assessment and Plan: I have independently evaluated and examined this patient. I reviewed the chart, the patient's history, and the PUBLIC ADMINISTRATION TEACHER's documented findings as above. We discussed and formulated the assessment and plan as above with additions as below: Please note that Diana's assessment and plan dismiss dated as 03/06/17 above- data she refers to is clearly from this morning. The patient is minimally ambulatory when seen at suppertime in the dining room. Family members are encouraging her to finish nutritional shake which she is grudgingly complying with. Her reports that she is assisting somewhat when her left arm is repositioned but the patient does not make any attempt to correctional captain my fingers with her left hand. Patient does note that her toes are numb and somewhat painful. Minor left facial droop-improved from earlier in the hospital stay, no difficulty swallowing evident. Respirations nonlabored. Patient attempts to assist all requested movements involving the left hand-no evidence of return of function in the left upper extremity. Patient is able to walk her left foot up and down and there is evidence of motor movement in the hamstrings/quads although she does not actually raise her leg. The right toes and distal foot are erythematous and slightly swollen and seem hypersensitive to touch but there are no ulcerations present; there is minimal erythema of the left toes without edema. Options for anticoagulation reviewed with the patient's -anticipate using novel agent. Hospital Course Summary Disclaimer: The visit summary below is not to be considered part of the above Progress Note.
[2017-03-09] MEDS: METFORMIN 500 MG TABLET PO SCH (17:46)
[2017-03-09] MEDS: SIMVASTATIN 10 MG TABLET PO SCH (21:49)
[2017-03-09] MEDS: MELATONIN 5 MG TABLET PO PRN (21:49)
[2017-03-10] MEDS: ENOXAPARIN 40 MG/0.4 ML INJECTION SQ SCH (09:09)
[2017-03-10] MEDS: DIGOXIN 125 MCG TABLET PO SCH (09:11)
[2017-03-10] MEDS: CITALOPRAM 20 MG TABLET PO SCH (09:13)
[2017-03-10] MEDS: RAMIPRIL 5 MG CAPSULE PO SCH (09:13)
[2017-03-10] MEDS: DOCUSATE SODIUM 100 MG CAPSULE PO SCH ×2 (09:14→20:50)
[2017-03-10] MEDS: LUTEIN 20 MG CAPSULE PO SCH (09:14)
[2017-03-10] MEDS: METFORMIN 1,000 MG TABLET PO SCH (09:15)
[2017-03-10] MEDS: VITAMIN B COMPLEX + C TABLET PO SCH (09:15)
[2017-03-10] MEDS: CLOPIDOGREL 75 MG TABLET PO SCH (09:15)
[2017-03-10] MEDS: ASPIRIN 81 MG CHEWABLE TABLET PO SCH (09:19)
[2017-03-10] MEDS: INSULIN ASPART 100unit/ml INJECTION SQ PRN (10:19)
--- NOTE | 2017-03-10 12:10 | IRU Team Meeting ---
IRU Team Meeting - Nursing Vital Signs: Vital Signs - 24 hr 03/09/17 16:00 03/09/17 21:37 03/10/17 00:00 Temperature 97.7 F 98.9 F Pulse Rate 69 70 69 Respiratory Rate 16 16 Blood Pressure 122/59 134/58 Pulse Oximetry 97 94 03/10/17 08:00 03/10/17 09:11 Temperature 98.6 F Pulse Rate 70 72 Respiratory Rate 16 Blood Pressure 131/65 Pulse Oximetry 94 Current Medications: Acetaminophen (Tylenol Supp) 325 mg NH Q5HR PRN Last Admin: 03/03/17 03:17 Dose: 325 mg Acetaminophen (Tylenol) 325 - 650 mg PO Q4HR PRN PRN Reason: Pain Last Admin: 03/09/17 21:49 Dose: 650 mg Al Hydroxide/Mg Hydroxide (Maalox Plus) 30 ml PO Q3-4HR PRN PRN Reason: Indigestion Aspirin (Asa) 81 mg PO DAILY [facility] Last Admin: 03/10/17 09:19 Dose: 81 mg Bisacodyl (Dulcolax) 10 mg RECTALLY DAILY PRN PRN Reason: Constipation Citalopram Hydrobromide (Celexa) 20 mg PO DAILY [facility] Last Admin: 03/10/17 09:13 Dose: 20 mg Clopidogrel Bisulfate (Plavix) 75 mg PO DAILY [facility] Last Admin: 03/10/17 09:15 Dose: 75 mg Digoxin (Lanoxin) 125 mcg PO DAILY [facility] Last Admin: 03/10/17 09:11 Dose: 125 mcg Diltiazem HCl (Cardizem Cd) 180 mg PO DAILY [facility] Last Admin: 03/10/17 09:14 Dose: 180 mg Docusate Sodium (Colace) 100 mg PO BID [facility] Last Admin: 03/10/17 09:14 Dose: 100 mg Enoxaparin Sodium (Lovenox) 40 mg SQ DAILY [facility] Last Admin: 03/10/17 09:09 Dose: 40 mg Glucose (Glutose 15) 37.5 gm PO PRN PRN PRN Reason: Hypoglycemia Insulin Aspart (Novolog) 0 unit SQ SS PRN; Protocol PRN Reason: Hyperglycemia Last Admin: 03/10/17 10:19 Dose: 2 unit Lorazepam (Ativan) 0.5 - 1 mg PO Q4H PRN Lorazepam (Ativan Inj) 0.5 - 1 mg IVP Q4H PRN Lutein () 20 mg PO DAILY [facility] Last Admin: 03/10/17 09:14 Dose: 20 mg Magnesium Hydroxide (Mom) 30 ml PO DAILY PRN PRN Reason: Constipation Melatonin (Melatonin) 5 mg PO HS PRN PRN Reason: Insomnia Last Admin: 03/09/17 21:49 Dose: 5 mg Metformin HCl (Glucophage) 500 mg PO WS [facility] Last Admin: 03/09/17 17:46 Dose: 500 mg Metformin HCl (Glucophage) 1,000 mg PO WB [facility] Last Admin: 03/10/17 09:15 Dose: 1,000 mg Metoclopramide HCl (Reglan) 5 - 10 mg IVP Q6H PRN PRN Reason: Nausea &/or vomiting Multivitamins (Total B + C) 1 tab PO DAILY [facility] Last Admin: 03/10/17 09:15 Dose: 1 tab Ondansetron HCl (Zofran Po) 4 mg PO Q6H PRN PRN Reason: Nausea &/or vomiting Last Admin: 03/09/17 08:46 Dose: 4 mg Ondansetron HCl (Zofran) 4 mg IVP Q6HR PRN PRN Reason: Nausea Pharmacy Consult () 1 each XX ONE TIME PRN PRN Reason: PRN orders Polyethylene Glycol (Miralax) 17 gm PO DAILY PRN PRN Reason: Constipation Promethazine HCl (Phenergan Inj) 12.5 - 25 mg IVP Q6H PRN PRN Reason: Nausea Ramipril (Altace) 10 mg PO DAILY [facility] Last Admin: 03/10/17 09:13 Dose: 10 mg Simvastatin (Zocor) 10 mg PO HS [facility] Last Admin: 03/09/17 21:49 Dose: 10 mg Sodium Chloride (Iv Flush) 10 - 80 ml IV PRN PRN PRN Reason: Flushing Last Admin: 03/09/17 08:44 Dose: 10 ml Comments: BG controlled. Dietary -- calorie count inadequate. roughly 1000cal per day. Difficulty chewing and clearing her mouth.Still have one side neglect. - Physical Therapy Comments: Mostly total assist. Bruising on elbow, elbow pads ordered. Seems to be plateauing as far as therapy goes. - Care Plan Interventions/Goals: D/C plan to [facility] ([facility] with therapies) this week. Barriers to d/c: strength, endurance, cognition.
[2017-03-10] MEDS: SALINE FLUSH 10ml SYRINGE IV PRN (13:50)
[2017-03-10] MEDS: METFORMIN 500 MG TABLET PO SCH (17:53)
--- NOTE | 2017-03-10 17:56 | IRU Progress Note ---
- Subjective/Serverity of Illness Forgets to eat unless reminded continually througout meal. She is still having episodes of incontinence. also still showing left side neglect. Exam Vital Signs: Temperature 98.1 F Pulse Rate 78 Respiratory Rate 16 Blood Pressure 133/63 Pulse Oximetry 97 Telemetry Rhythm: Sinus Rhythm Height: 1.68 m Weight: 67.2 kg Body Mass Index: 25.2 - Constitutional Present: no acute distress, cooperative - Routine HEENT Exam Head: Present: normocephalic Eye: Present: EOMI, PERRL ENT: Present: mucous membranes moist - Routine Respiratory Exam Present: CTA bilaterally. Absent: wheezes, crackles - Routine Cardiovascular Exam Present: RRR, no murmur - Routine Abdominal Exam Present: soft, normoactive bowel sounds, non distended, non tender - Routine Extremities Exam Present: pulses intact - Routine Back/Spine/Pelvis Exam Back/Spine: Absent: CVA tenderness, paraspinal tenderness - Routine Skin Exam Present: dry, warm - Routine Neurological Exam Present: alert, motor deficit (decreased strength left arm and leg), hearing grossly intact. Absent: oriented X3 - Routine Psychiatric Exam Present: normal affect Sepsis Assessment - Evaluation Sepsis screening result: No Definite Risk IRU A/P (1) Stroke Qualifiers: CVA mechanism: embolism Precerebral and cerebral artery: middle cerebral artery Laterality of affected vessel: right Qualified Code(s): I63.411 - Cerebral infarction due to embolism of right middle cerebral artery Current visit: Yes Status: Acute Medical following post cva, following bp and ms. (2) Left hemiparesis Current visit: Yes Status: Acute PT and OT working to help pt accomodate and increase mobility and strength. Left sided neglect still an issue. (3) Dysphagia as late effect of stroke Current visit: Yes Status: Acute Speech working with pt. [place] thick liquids. (4) Diabetes mellitus Current visit: Yes Status: Chronic followed by medical. Dietary also working with pt. (5) Atrial fibrillation Current visit: Yes Status: Chronic RRR today, medical following. (6) Hypertension Current visit: Yes Status: Chronic (7) Myopathy Current visit: Yes Status: Acute (8) Depression Current visit: Yes Status: Chronic (9) Head ache Current visit: Yes Status: Acute DVT Prophylaxis: Lovenox Resuscitation Status: Full Code - Course Hospital Course: Maximo Johnston MD: - Interventions to Obtain Goals PT Treatment Plan: Balance/Proprioception, Functional Activities, Gait Training , Manual Therapy, Patient/Family Education, Sensory Integration, Therapeutic Exercise OT Treatment Plan: ADL (Basic Care), Balance Training, IADL, Pt./Family Education, Ther. Exercise for ADL, UE Functional Training Goals Progress/Modifications: See team note today.
--- NOTE | 2017-03-10 18:10 | IRU Progress Note ---
- Subjective/Serverity of Illness Pt very tired today, feels like she is working too hard. Not sleeping well. present and helps with conversation. Exam Vital Signs: Temperature 98.1 F Pulse Rate 82 Respiratory Rate 16 Blood Pressure 128/66 Pulse Oximetry 96 Oxygen Delivery Method Room Air Oxygen Flow Rate 1 Height: 1.68 m Weight: 67.2 kg Body Mass Index: 25.2 - Constitutional Present: no acute distress, cooperative - Routine HEENT Exam Head: Present: normocephalic - Routine Neck Exam Absent: tracheal deviation, trauma - Routine Chest/Breast/Axilla Exam Chest wall: Present: pacemaker. Absent: tenderness, chest tube - Routine Respiratory Exam Present: decreased breath sounds, CTA bilaterally - Routine Cardiovascular Exam Present: RRR, no murmur - Routine Abdominal Exam Present: soft, non distended, non tender - Routine Extremities Exam Absent: cyanosis, clubbing, edema - Routine Skin Exam Present: intact, dry, warm - Routine Neurological Exam Present: alert, motor deficit. Absent: normal speech Sepsis Assessment - Evaluation Sepsis screening result: No Definite Risk IRU A/P (1) Stroke Qualifiers: CVA mechanism: embolism Precerebral and cerebral artery: middle cerebral artery Laterality of affected vessel: right Qualified Code(s): I63.411 - Cerebral infarction due to embolism of right middle cerebral artery Current visit: Yes Status: Acute Followed by medical. No reperfusion injury to date. (2) Left hemiparesis Current visit: Yes Status: Acute PT and OT working with pt. Sheis cooperative and making some progress. See FIM scores. Cont with Plan as discussed in team meeting today. (3) Dysphagia as late effect of stroke Current visit: Yes Status: Acute Speech working with pt, changed to [place] thick liquids. Still having issues with poor caloric intake and neglect of left side of plate. (4) Diabetes mellitus Current visit: Yes Status: Chronic BG stable. followed by medical. (5) Atrial fibrillation Current visit: Yes Status: Chronic Followed by cardiology. (6) Hypertension Current visit: Yes Status: Chronic (7) Myopathy Current visit: Yes Status: Acute (8) Depression Current visit: Yes Status: Chronic (9) Head ache Current visit: Yes Status: Acute DVT Prophylaxis: Lovenox Resuscitation Status: Full Code - Course Hospital Course: Maximo Johnston MD: - Interventions to Obtain Goals PT Treatment Plan: Balance/Proprioception, Functional Activities, Gait Training , Manual Therapy, Patient/Family Education, Sensory Integration, Therapeutic Exercise OT Treatment Plan: ADL (Basic Care), Balance Training, IADL, Pt./Family Education, Ther. Exercise for ADL, UE Functional Training
--- NOTE | 2017-03-10 18:20 | IRU Progress Note ---
Exam Vital Signs: Temperature 98.1 F Pulse Rate 72 Respiratory Rate 16 Blood Pressure 138/71 Pulse Oximetry 95 Height: 1.68 m Weight: 67.2 kg Body Mass Index: 25.2 - Constitutional Present: no acute distress - Routine HEENT Exam Head: Present: normocephalic, atraumatic ENT: Present: mucous membranes moist - Routine Chest/Breast/Axilla Exam Chest wall: Present: pacemaker - Routine Respiratory Exam Present: CTA bilaterally - Routine Cardiovascular Exam Present: RRR, no murmur - Routine Abdominal Exam Present: soft, normoactive bowel sounds, non distended, non tender - Routine Extremities Exam Absent: cyanosis, clubbing, edema Comments: right foot with increased redness. - Routine Skin Exam Comments: skin red on right foot. - Routine Neurological Exam Present: alert - Routine Psychiatric Exam Comments: somewhat withdrawn. Sepsis Assessment - Evaluation Sepsis screening result: No Definite Risk IRU A/P (1) Stroke Qualifiers: CVA mechanism: embolism Precerebral and cerebral artery: middle cerebral artery Laterality of affected vessel: right Qualified Code(s): I63.411 - Cerebral infarction due to embolism of right middle cerebral artery Current visit: Yes Status: Acute GUILLERMO delayed until tomorrow. (2) Left hemiparesis Current visit: Yes Status: Acute Cont with PT and OT per care plan. Discussed in team meeting yesterday. (3) Dysphagia as late effect of stroke Current visit: Yes Status: Acute Speech will cont to work with pt. (4) Diabetes mellitus Current visit: Yes Status: Chronic followed by medical. (5) Atrial fibrillation Current visit: Yes Status: Chronic GUILLERMO moved to tomorrow. (6) Hypertension Current visit: Yes Status: Chronic (7) Myopathy Current visit: Yes Status: Acute (8) Depression Current visit: Yes Status: Chronic (9) Head ache Current visit: Yes Status: Acute DVT Prophylaxis: Lovenox Resuscitation Status: Full Code - Course Hospital Course: Maximo Johnston MD: - Interventions to Obtain Goals PT Treatment Plan: Balance/Proprioception, Functional Activities, Gait Training , Manual Therapy, Patient/Family Education, Sensory Integration, Therapeutic Exercise OT Treatment Plan: ADL (Basic Care), Balance Training, IADL, Pt./Family Education, Ther. Exercise for ADL, UE Functional Training
--- NOTE | 2017-03-10 18:30 | IRU Progress Note ---
- Subjective/Serverity of Illness Pt working with PT and OT and is improving transfer ability. Does not like pureed meat and thickened fluids. Exam Vital Signs: Height: 1.68 m Weight: 67.2 kg Body Mass Index: 25.2 - Constitutional Present: no acute distress, cooperative - Routine HEENT Exam Head: Present: normocephalic - Routine Respiratory Exam Present: CTA bilaterally. Absent: wheezes, crackles - Routine Cardiovascular Exam Present: RRR, no murmur - Routine Abdominal Exam Present: soft, normoactive bowel sounds, non distended, non tender - Routine Extremities Exam Absent: clubbing, edema Comments: Right foot still reddened. - Routine Skin Exam Present: intact, warm - Routine Neurological Exam Present: alert Speech slightly improved. - Routine Psychiatric Exam Present: normal affect Sepsis Assessment - Evaluation Sepsis screening result: No Definite Risk IRU A/P (1) Stroke Qualifiers: CVA mechanism: embolism Precerebral and cerebral artery: middle cerebral artery Laterality of affected vessel: right Qualified Code(s): I63.411 - Cerebral infarction due to embolism of right middle cerebral artery Current visit: Yes Status: Acute Pt stable, medical following. (2) Left hemiparesis Current visit: Yes Status: Acute Some improvement noted, see FIMS, cont with PTand OT plan of care. (3) Dysphagia as late effect of stroke Current visit: Yes Status: Acute Speech working with pt, cont with thinning fluids as appropriate. (4) Diabetes mellitus Current visit: Yes Status: Chronic (5) Atrial fibrillation Current visit: Yes Status: Chronic (6) Hypertension Current visit: Yes Status: Chronic (7) Myopathy Current visit: Yes Status: Acute (8) Depression Current visit: Yes Status: Chronic (9) Head ache Current visit: Yes Status: Acute DVT Prophylaxis: Lovenox Resuscitation Status: Full Code - Course Hospital Course: Maximo Johnston MD: - Interventions to Obtain Goals PT Treatment Plan: Balance/Proprioception, Functional Activities, Gait Training , Manual Therapy, Patient/Family Education, Sensory Integration, Therapeutic Exercise OT Treatment Plan: ADL (Basic Care), Balance Training, IADL, Pt./Family Education, Ther. Exercise for ADL, UE Functional Training
--- NOTE | 2017-03-10 18:38 | IRU Progress Note ---
- Subjective/Serverity of Illness Pt very tired at lunch today. not feeling well overall. Exam Vital Signs: Temperature 98.1 F 03/10/17 16:00 Pulse Rate 78 03/10/17 16:07 Respiratory Rate 16 03/10/17 16:00 Blood Pressure 133/63 03/10/17 16:00 Pulse Oximetry 97 03/10/17 16:00 Oxygen Delivery Method Room Air Oxygen Flow Rate 1 Height: 1.68 m Weight: 67.2 kg Body Mass Index: 25.2 - Constitutional Present: no acute distress, cooperative - Routine HEENT Exam Head: Present: normocephalic, atraumatic - Routine Chest/Breast/Axilla Exam Chest wall: Absent: tenderness - Routine Respiratory Exam Present: CTA bilaterally. Absent: wheezes, crackles - Routine Cardiovascular Exam Present: RRR, no murmur - Routine Abdominal Exam Present: soft, normoactive bowel sounds, non distended, non tender - Routine Extremities Exam Absent: cyanosis, clubbing - Routine Skin Exam Present: intact, dry, warm - Routine Neurological Exam Present: alert, oriented X3, hemineglect - Routine Psychiatric Exam Present: depressed (mild ) Sepsis Assessment - Evaluation Sepsis screening result: No Definite Risk IRU A/P (1) Stroke Qualifiers: CVA mechanism: embolism Precerebral and cerebral artery: middle cerebral artery Laterality of affected vessel: right Qualified Code(s): I63.411 - Cerebral infarction due to embolism of right middle cerebral artery Current visit: Yes Status: Acute Medical following. (2) Left hemiparesis Current visit: Yes Status: Acute Cont to have slow improvement. (3) Dysphagia as late effect of stroke Current visit: Yes Status: Acute Pt working with SPeech, but still forgets to eat unless reminded during meal. She is finding some foods that she does like to eat. (4) Diabetes mellitus Current visit: Yes Status: Chronic managed by medical and dietary. (5) Atrial fibrillation Current visit: Yes Status: Chronic stable. (6) Hypertension Current visit: Yes Status: Chronic (7) Myopathy Current visit: Yes Status: Acute (8) Depression Current visit: Yes Status: Chronic (9) Head ache Current visit: Yes Status: Acute DVT Prophylaxis: Lovenox Resuscitation Status: Full Code - Course Hospital Course: Maximo Johnston MD: - Interventions to Obtain Goals PT Treatment Plan: Balance/Proprioception, Functional Activities, Gait Training , Manual Therapy, Patient/Family Education, Sensory Integration, Therapeutic Exercise OT Treatment Plan: ADL (Basic Care), Balance Training, IADL, Pt./Family Education, Ther. Exercise for ADL, UE Functional Training Goals Progress/Modifications: Discharge planning ordered.
[2017-03-10] MEDS: MELATONIN 5 MG TABLET PO PRN (20:50)
[2017-03-10] MEDS: ACETAMINOPHEN 325 MG TABLET PO PRN (20:50)
[2017-03-10] MEDS: SIMVASTATIN 10 MG TABLET PO SCH (20:50)
[2017-03-11] MEDS: SIMVASTATIN 10 MG TABLET PO SCH ×2 (03:46→22:06)
[2017-03-11] MEDS: RAMIPRIL 5 MG CAPSULE PO SCH (08:17)
[2017-03-11] MEDS: METFORMIN 1,000 MG TABLET PO SCH (08:17)
[2017-03-11] MEDS: DIGOXIN 125 MCG TABLET PO SCH (08:18)
[2017-03-11] MEDS: CITALOPRAM 20 MG TABLET PO SCH (08:18)
[2017-03-11] MEDS: DOCUSATE SODIUM 100 MG CAPSULE PO SCH ×2 (08:18→22:06)
[2017-03-11] MEDS: ASPIRIN 81 MG CHEWABLE TABLET PO SCH (08:18)
[2017-03-11] MEDS: ENOXAPARIN 40 MG/0.4 ML INJECTION SQ SCH (08:19)
[2017-03-11] MEDS: CLOPIDOGREL 75 MG TABLET PO SCH (08:19)
[2017-03-11] MEDS: LUTEIN 20 MG CAPSULE PO SCH (08:19)
[2017-03-11] MEDS: VITAMIN B COMPLEX + C TABLET PO SCH (08:19)
[2017-03-11] MEDS: INSULIN ASPART 100unit/ml INJECTION SQ PRN (10:25)
[2017-03-11] MEDS: ONDANSETRON ODT 4 MG TABLET PO PRN (11:46)
--- NOTE | 2017-03-11 15:14 | Progress Note ---
<Diana Tse V - Last Filed: 03/11/17 15:09> Subjective: Afternoon, finishing up with therapy. She is resting in bed and ready to take a nap. She denies having pain or shortness of breath. She continues to have left- sided hemiparesis. Continues to have some urinary incontinence. Blood pressure well controlled 134/64 Objective Vital signs: Temperature 98.9 F 03/11/17 08:00 Pulse Rate 67 03/11/17 08:18 Respiratory Rate 16 03/11/17 08:00 Blood Pressure 134/64 03/11/17 08:00 Pulse Oximetry 96 03/11/17 08:00 Oxygen Delivery Method Room Air Oxygen Flow Rate 1 Body Mass Index: 25.2 - Constitutional Present: no acute distress - Routine HEENT Exam Head: Present: normocephalic, atraumatic Eye: Present: EOMI, PERRL ENT: Present: mucous membranes moist - Routine Respiratory Exam Present: CTA bilaterally - Routine Cardiovascular Exam Present: RRR, S1, S2 - Routine Abdominal Exam Present: soft, normoactive bowel sounds - Routine Back/Spine/Pelvis Exam Back/Spine: Present: full ROM - Routine Skin Exam Present: intact, warm - Routine Neurological Exam Present: alert, oriented X3, CN II-XII intact Left side hemiphoresis with flaccid upper extremity Results - Labs CBC & Chem 7: 03/09/17 04:06 03/09/17 04:06 Microbiology Results: Microbiology 02/24/17 12:21 Urine, Clean Catch/Voided Urine Culture - Final Staphylococcus epidermidis Assessment and Plan (1) Stroke Current visit: Yes Status: Acute ischemic, s/p clot retrieval; small hemorrhagic conversion right MCA distribution (2) Diabetes mellitus Current visit: Yes Status: Chronic (3) Atrial fibrillation Current visit: Yes Status: Chronic (4) Hypertension Current visit: Yes Status: Chronic (5) Myopathy Current visit: Yes Status: Acute (6) Left hemiparesis Current visit: Yes Status: Acute due to CVA, +left sided neglect (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 He is to work with PT and OT for ongoing strengthening. Continues to have flaccid left upper extremity Will resume Coumadin today as this has been on hold due to intraparenchymal hemorrhage. Will continue on Lovenox and bridge until INR is therapeutic Pretension appears to be well controlled Continue aspirin, Plavix and statin for protection Planning [facility]. Sepsis Assessment - Evaluation Sepsis screening result: No Definite Risk Hospital Course Summary Disclaimer: The visit summary below is not to be considered part of the above Progress Note. Hospital Course: 02/28/17 15:51 A/P: Redness/bluish toes with mild swelling of mid-foot -Likely blue toe syndrome -Pedal pulses present but decreased, motor/sensory function intact in LE, minimal pain -Doppler arterial/venous negative for occlusion calf arteries -Likely small vessel occlusion with emboli -Doppler did show decreased flow through calf arteries and diffuse atherosclerosis disease -Will plan on MAY and cardio consult for possible intervention -Medical management-->On statin and ASA 03/01/17 13:11 *Ischemic stroke with complete right ICA occlusion extending into MCA with clot extraction/tPA Continue ASA, Statin. Not much recovery post procedure. Continue PT/OT/ST per Rehab team. *Small IPH, hemorrhagic transformation- Hold Warfarin until 03/11. If worsening mental status or CHAMBERLAIN does not improve, need to repeat CT head. Last CT 02/12. No MRI due to PPM *AFib- Rate control. No warfarin as above. *Right acute LE microvascular ischemia- Nurses instructed on neurovascular exam with dopplers Q 2 hours for now. D/W Dr. Pierre and with Dr. Dotson at [facility]. No warfarin or thinners recommended. Ok to start Plavix and ASA. Will decreased ASA to 81mg Q day given bleeding risk. Continue to monitor closely. *HTN- BP well controlled. Avoid excessive lowering to maintain perfusion. *DM2- BG is well controlled on metformin, she is on 3units of long acting insulin BID. Will stop the insulin, continue 1000mg AM metformin, add 500mg PM metformin. Monitor renal function given age- currently normal. *DVT px- will restart px. dose LMWH that was continued on transfer to prevent DVT. Avoid SCDs given concern for ischemia 03/02/17 12:26 Ischemic stroke with hemorrhagic transformation; suspect ongoing microemboli -ASA, Plavix, statin -resume Coumadin 03/11 -PT/OT Left arm swelling, erythema -radial pulses intact -monitor for now DM2 -Insulin was dc'd and metformin increased on 03/01 -BGM 220 after breakfast today -cont to monitor 03/11/17 15:14 03/11/17 Overall she is stable. He is to work with PT and OT for ongoing strengthening. Continues to have flaccid left upper extremity Will resume Coumadin today as this has been on hold due to intraparenchymal hemorrhage. Will continue on Lovenox and bridge until INR is therapeutic Pretension appears to be well controlled Continue aspirin, Plavix and statin for protection Planning [facility]. <Heather Harmon - Last Filed: 03/11/17 20:02> Objective Vital signs: Temperature 98.1 F 03/11/17 16:00 Pulse Rate 69 03/11/17 16:00 Respiratory Rate 12 03/11/17 16:00 Blood Pressure 112/46 03/11/17 16:00 Pulse Oximetry 96 03/11/17 16:00 Oxygen Delivery Method Room Air Oxygen Flow Rate 1 Results - Labs CBC & Chem 7: 03/09/17 04:06 03/09/17 04:06 Microbiology Results: Microbiology 02/24/17 12:21 Urine, Clean Catch/Voided Urine Culture - Final Staphylococcus epidermidis Assessment and Plan (1) Stroke Current visit: Yes Status: Acute (2) Diabetes mellitus Current visit: Yes Status: Chronic (3) Atrial fibrillation Current visit: Yes Status: Chronic (4) Hypertension Current visit: Yes Status: Chronic (5) Myopathy Current visit: Yes Status: Acute (6) Left hemiparesis Current visit: Yes Status: Acute (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 Current visit: Yes Status: Acute (8) Depression Current visit: Yes Status: Chronic (9) Head ache Current visit: Yes Status: Acute Hospital Course Summary Disclaimer: The visit summary below is not to be considered part of the above Progress Note. Hospital Course: 03/11/17 19:52 I have independently evaluated and examined this patient. I reviewed the chart, the patient's history, and the AMMONIA REFRIGERATION WORKER's documented findings as above. We discussed and formulated the assessment and plan as above with additions as below: Mrs. Black was seen with family members at bedside earlier this evening. He is scheduled to discharged to [facility] tomorrow in [place]. She denied concerns and reports having no pain. Right toes remain mildly erythematous but erythema overall significantly improved today compared to 2 days ago although the foot is not in a dependent position currently. She actively flexes and dorsiflexes the left foot and is able to flex her left knee although cannot raise her left leg off the bed. Speech is much more fluent than on admission. Anticoagulation options reviewed with [id number] or Eliquis both considered options but given prior warfarin failure due to low INR and cardiology preference for NOAC will proceed with anticoagulation with Eliquis 5 mg twice a day. In conjunction with prior plans aspirin, Plavix, and Lovenox are being discontinued. Initial dose of Eliquis to be given tonight. Orders written.
[2017-03-11] MEDS ORDERED: WARFARIN 5 MG TABLET PO SCH (16:45)
[2017-03-11] MEDS: METFORMIN 500 MG TABLET PO SCH (17:24)
[2017-03-11] MEDS: APIXABAN 5 MG TABLET PO SCH (22:05)
[2017-03-11] MEDS: ACETAMINOPHEN 325 MG TABLET PO PRN (22:05)
[2017-03-11] MEDS: MELATONIN 5 MG TABLET PO PRN (22:05)
[2017-03-12] MEDS: RAMIPRIL 5 MG CAPSULE PO SCH (08:53)
[2017-03-12] MEDS: DOCUSATE SODIUM 100 MG CAPSULE PO SCH (08:53)
[2017-03-12] MEDS: VITAMIN B COMPLEX + C TABLET PO SCH (08:53)
[2017-03-12] MEDS: METFORMIN 1,000 MG TABLET PO SCH (08:53)
[2017-03-12] MEDS: DIGOXIN 125 MCG TABLET PO SCH (08:54)
[2017-03-12] MEDS: LUTEIN 20 MG CAPSULE PO SCH (08:54)
[2017-03-12] MEDS: CITALOPRAM 20 MG TABLET PO SCH (08:54)
--- NOTE | 2017-03-12 08:54 | Discharge Summary ---
Discharge Plan - Med Rec/Dispo Referrals/Follow Up: Victor Hguo Flores MD [Family Provider] - (Hosp. follow-up on 03/25/17 at 2:30 pm. [facility] [address] [place] [phone]. ) Prescriptions: New Metformin [Glucophage] 500 mg PO WS tablet Metformin [Glucophage] 1,000 mg PO WB tablet Ramipril [Altace] 10 mg PO DAILY capsule Simvastatin [Zocor] 10 mg PO HS tablet Apixaban [Eliquis] 5 mg PO BID tablet DiltiaZEM CD [Cardizem Cd] 180 mg PO DAILY capsule Ondansetron Odt [Zofran Po] 4 mg PO Q6H PRN tablet PRN Reason: Nausea &/Or Vomiting Continue Digoxin 125 mcg PO DAILY #0 Citalopram [Celexa] 10 mg PO DAILY Polyethylene Glycol 3350 [Miralax] 17 gm PO DAILY PRN PRN Reason: Constipation Lutein 20 mg PO DAILY Docusate Sodium [Colace] 1 cap PO BID [place]-3/Dha/Epa/Fish Oil [[place]-3 Fish Oil 1,000 mg Sfgl] 1,000 mg PO DAILY Melatonin 5 mg PO HS PRN PRN Reason: Insomnia Discontinued Ondansetron Inj [Zofran] 4 mg IVP Q6HR PRN PRN Reason: Nausea Acetaminophen 325 - 650 mg PO Q4HR PRN PRN Reason: Pain Aspirin 325 mg PO DAILY No Action Atenolol 50 mg PO DAILY #0 Enoxaparin [Lovenox] 40 mg SQ DAILY Ibuprofen [Motrin] 600 mg PO Q6H PRN PRN Reason: Pain Vitamin B Complex Vit C No.4 [Super B Complex] 150 mg PO DAILY Amlodipine 10 mg PO HS Simvastatin 80 mg PO HS Ramipril 10 mg PO DAILY Hydralazine Inj [Apresoline] 0.5 ml IVP Q4HR PRN PRN Reason: Hypertension - Disposition 01 Discharged Home, Self-Care
[2017-03-12] MEDS: APIXABAN 5 MG TABLET PO SCH (08:56)
[2017-03-12 09:39] VITALS: BP 149/67; PULSE 69; RESP 16; TEMP 98.5; O2SAT 93
--- NOTE | 2017-03-12 10:01 | Discharge Instructions ---
Discharge Plan - Med Rec/Dispo Referrals/Follow Up: Victor Hugo Flores MD [Family Provider] - (Hosp. follow-up on 03/25/17 at 2:30 pm. [facility] [address] [place] [id number]. [phone]) Prescriptions: New Metformin [Glucophage] 500 mg PO WS tablet Metformin [Glucophage] 1,000 mg PO WB tablet Ramipril [Altace] 10 mg PO DAILY capsule Simvastatin [Zocor] 10 mg PO HS tablet Citalopram [Celexa] 20 mg PO DAILY tablet Milk of Magnesia [Mom] 30 ml PO DAILY PRN udc PRN Reason: Constipation Mag-Al + Sim Oral Liq [Maalox Plus] 30 ml PO Q3-4HR PRN udc PRN Reason: Indigestion Apixaban [Eliquis] 5 mg PO BID tablet DiltiaZEM CD [Cardizem Cd] 180 mg PO DAILY capsule Ondansetron Odt [Zofran Po] 4 mg PO Q6H PRN tablet PRN Reason: Nausea &/Or Vomiting Bisacodyl Supp [Dulcolax] 10 mg RECTALLY DAILY PRN supp PRN Reason: Constipation Digoxin [Lanoxin] 125 mcg PO DAILY tablet Continue Ibuprofen [Motrin] 600 mg PO Q6H PRN PRN Reason: Pain Polyethylene Glycol 3350 [Miralax] 17 gm PO DAILY PRN PRN Reason: Constipation Vitamin B Complex Vit C No.4 [Super B Complex] 150 mg PO DAILY Lutein 20 mg PO DAILY Docusate Sodium [Colace] 1 cap PO BID [place]-3/Dha/Epa/Fish Oil [[place]-3 Fish Oil 1,000 mg Sfgl] 1,000 mg PO DAILY Melatonin 5 mg PO HS PRN PRN Reason: Insomnia Discontinued Digoxin 125 mcg PO DAILY #0 Enoxaparin [Lovenox] 40 mg SQ DAILY Citalopram [Celexa] 10 mg PO DAILY Ondansetron Inj [Zofran] 4 mg IVP Q6HR PRN PRN Reason: Nausea Acetaminophen 325 - 650 mg PO Q4HR PRN PRN Reason: Pain Aspirin 325 mg PO DAILY Hydralazine Inj [Apresoline] 0.5 ml IVP Q4HR PRN PRN Reason: Hypertension No Action Atenolol 50 mg PO DAILY #0 Amlodipine 10 mg PO HS Simvastatin 80 mg PO HS Ramipril 10 mg PO DAILY Discharge Instructions/Outpatient Orders: Final Provider Discharge Instructions Location: Determined By Patient - Disposition [facility] ([facility])
[2017-03-12] MEDS: INSULIN ASPART 100unit/ml INJECTION SQ PRN (11:04)
--- NOTE | 2017-03-12 12:20 | Extended Care Facility Orders ---
Admission Orders Admit to:: [facility] Allergies/Adverse Reactions: Allergies lomefloxacin Allergy (Mild, Verified 02/17/17 17:19) RASH morphine Allergy (Mild, Verified 02/17/17 17:19) RASH Penicillins Allergy (Mild, Verified 02/17/17 17:19) RASH pentazocine Allergy (Mild, Verified 02/17/17 17:19) RASH propacetamol Allergy (Mild, Verified 02/17/17 17:28) RASH Tetanus Vaccines and Toxoid Allergy (Unknown, Verified 02/17/17 17:19) metformin Adverse Reaction (Mild, Verified 02/17/17 17:19) DIARRHEA Admitting Diagnosis: CVA Admitting Physician: Maximo Johnston MD Attending Physician: Maximo Johnston MD Code Status: Full Code Anticiapted Length of Stay: 30 days or less Rehab Potential: fair Rehab Prognosis: fair Diet: 03/05/17 Lunch Cardiac Consistent Carbohydrate Diet [DIET] Calorie Level: 2000 Sodium Restriction: 2GRAM Fluid Restriction: NOREST Fluid Consistency: SYRNEC Fat Content: LOW Other Diet Modifiers: SOFT Comment: chopped meat May use Facility Protocol or Standing Orders: Yes May have flu vaccine: Yes Evaluations/Treatment: PT, OT [facility] Certification: I certify that SNF services are required to be given on an Inpatient basis because of the patients need for assisted care on a continuing basis for the condition(s) for which he/she received inpatient hospital services prior to his/her transfer to the SNF. SNF inpatient care is necessary for the following reasons - Additional Information Resident is Aware of Diagnosis: Yes Referrals: Victor Hugo Flores MD [Family Provider] - (Hosp. follow-up on 03/25/17 at 2:30 pm. [facility] [address] [place] [id number]. )
[2017-03-12] MEDS: ACETAMINOPHEN 325 MG TABLET PO PRN (13:28)
--- NOTE | 2017-04-07 15:48 | Discharge Summary ---
Discharge Information Date of admission: 02/17/17 15:35 Anticipated date of discharge: 03/12/17 Attending Physician: Maximo Johnston MD Primary care physician: Victor Hugo Flores MD Consults: 02/17/17 19:02 Physician Consult [CONS] Routine Consulting Provider: Clifton Mcginnis Reason For Exam: medical management Ordering Provider has Notified Strategic Accounts Manager: Yes 02/19/17 19:31 Bread Wrapper Operator Consult [CONS] Routine 02/28/17 15:55 Physician Consult [CONS] Routine Consulting Provider: Martínez Aguero Reason For Exam: blue toe syndrome Ordering Provider has Notified Strategic Accounts Manager: No - Discharge Diagnosis (1) Stroke Qualifiers: CVA mechanism: embolism Precerebral and cerebral artery: middle cerebral artery Laterality of affected vessel: right Qualified Code(s): I63.411 - Cerebral infarction due to embolism of right middle cerebral artery Status: Acute (2) Left hemiparesis Status: Acute (3) Dysphagia as late effect of stroke Status: Acute (4) Diabetes mellitus Status: Chronic (5) Atrial fibrillation Status: Chronic (6) Hypertension Status: Chronic (7) Myopathy Status: Acute (8) Depression Status: Chronic (9) Head ache Status: Acute - Laboratory Labs: 03/09/17 04:06 03/09/17 04:06 - Microbiology Microbiology 02/24/17 12:21 Urine, Clean Catch/Voided Urine Culture - Final Staphylococcus epidermidis History of Present Illness HPI: 87 yo female with CVA onset 02/11/17. Dx with right sided cva which extended from ICA to MCA. She ws tr[facility]ferred [facility] and had clot removal procedure without improvemeent in symptoms. She continues with weakness left side and difficulty swallowing. She was taking coumadin for Afib, but inr was subtherapeutic on morning of CVA. Being admitted to IRU for PT, OT and Speech therapy. Hospital Course This is a general summary of the patient's hospital course. For more details refer to the complete medical record. Hospital course: 03/11/17 19:52 I have independently evaluated and examined this patient. I reviewed the chart, the patient's history, and the PLATING AND POINT ASSEMBLY SUPERVISOR's documented findings as above. We discussed and formulated the assessment and plan as above with additions as below: Mrs. Black was seen with family members at bedside earlier this evening. [facility] [place] She denied concerns and reports having no pain. Right toes remain mildly erythematous but erythema overall significantly improved today compared to 2 days ago although the foot is not in a dependent position currently. She actively flexes and dorsiflexes the left foot and is able to flex her left knee although cannot raise her left leg off the bed. Speech is much more fluent than on admission. Anticoagulation options reviewed with [id number] or Eliquis both considered options but given prior warfarin failure due to low INR and cardiology preference for NOAC will proceed with anticoagulation with Eliquis 5 mg twice a day. In conjunction with prior plans aspirin, Plavix, and Lovenox are being discontinued. Initial dose of Eliquis to be given tonight. Orders written. Patient was admitted to IRU for inpatient physical therapy, occupational therapy and speech therapy on 02/17/2017. She worked actively with staff, was able to increase strength and use of left lower extremity. At this point she is stable for discharge to SNF for continued strengthening and progression. Time spent with patient: 25 - 35 minutes Discharge Plan - Med Rec/Dispo Referrals/Follow Up: Victor Hugo Flores MD [Family Provider] - (Hosp. follow-up on 03/25/17 at 2:30 pm. [facility] [address] [place] [address]. [phone]) Prescriptions: New Metformin [Glucophage] 500 mg PO WS tablet Metformin [Glucophage] 1,000 mg PO WB tablet Ramipril [Altace] 10 mg PO DAILY capsule Simvastatin [Zocor] 10 mg PO HS tablet Citalopram [Celexa] 20 mg PO DAILY tablet Milk of Magnesia [Mom] 30 ml PO DAILY PRN udc PRN Reason: Constipation Mag-Al + Sim Oral Liq [Maalox Plus] 30 ml PO Q3-4HR PRN udc PRN Reason: Indigestion Apixaban [Eliquis] 5 mg PO BID tablet DiltiaZEM CD [Cardizem Cd] 180 mg PO DAILY capsule Ondansetron Odt [Zofran Po] 4 mg PO Q6H PRN tablet PRN Reason: Nausea &/Or Vomiting Bisacodyl Supp [Dulcolax] 10 mg RECTALLY DAILY PRN supp PRN Reason: Constipation Digoxin [Lanoxin] 125 mcg PO DAILY tablet Continue Ibuprofen [Motrin] 600 mg PO Q6H PRN PRN Reason: Pain Polyethylene Glycol 3350 [Miralax] 17 gm PO DAILY PRN PRN Reason: Constipation Vitamin B Complex Vit C No.4 [Super B Complex] 150 mg PO DAILY Lutein 20 mg PO DAILY Docusate Sodium [Colace] 1 cap PO BID [place]-3/Dha/Epa/Fish Oil [[place]-3 Fish Oil 1,000 mg Sfgl] 1,000 mg PO DAILY Melatonin 5 mg PO HS PRN PRN Reason: Insomnia Discontinued Digoxin 125 mcg PO DAILY #0 Enoxaparin [Lovenox] 40 mg SQ DAILY Citalopram [Celexa] 10 mg PO DAILY Ondansetron Inj [Zofran] 4 mg IVP Q6HR PRN PRN Reason: Nausea Acetaminophen 325 - 650 mg PO Q4HR PRN PRN Reason: Pain Aspirin 325 mg PO DAILY Hydralazine Inj [Apresoline] 0.5 ml IVP Q4HR PRN PRN Reason: Hypertension No Action Atenolol 50 mg PO DAILY #0 Amlodipine 10 mg PO HS Simvastatin 80 mg PO HS Ramipril 10 mg PO DAILY Discharge Instructions/Outpatient Orders: Final Provider Discharge Instructions Location: Determined By Patient - Disposition 03 To [facility]
== END 2017-03-12 15:25 | DRG 57 ==
PROVIDERS: ADMIT Family Medicine; ATTEND Family Medicine